=== PATIENT | female | born 1930 | race Caucasian/White ===

== ENCOUNTER 2016-05-13 14:16 | Emergency (ER) | payer OTHER ==
[~2016-05-13] VITALS: Ht 152.4 cm; Wt 68.0 kg
[~2016-05-13 14:16] MED LIST: CLTP PO; FLUO20CA35 PO; LEVO137T14 PO; LPR25 PO; MCRK20 PO; MTR500 PO; MULT-190 PO; ONDA4TAB7 SL; PRLSR20 PO; SIMV10TA2 PO
[2016-05-13 14:23] VITALS: Ht 152.4 cm; Wt 68.0 kg
[2016-05-13] MEDS ORDERED: ACETAMINOPHEN 325 MG TAB PO STA (16:36)
[2016-05-13] MEDS ORDERED: SODIUM CHLORIDE 0.9% 1000ML 1,000 ML IV STA (16:36)
--- NOTE | 2016-05-13 16:40 | EMERGENCY ROOM VISIT NOTE ---
History Report prepared by Eliezer: Octavia Chopra Under the Supervision of: Dr. Kiara Shultz M.D. First contact with patient: 16:28 Chief Complaint: FLU LIKE SX Stated Complaint: FLU,COLD,TENDERNESS IN CALVES History of Present Illness The patient is a 85 year old female who presents to the Emergency Room with complaints of constant flu like symptoms beginning 2 days ago. The patient states that she was seen at [facility] earlier today and during the examination the PA-C noticed tenderness in the patient's calves and wanted her to be evaluated in the ED for potential blood clots. The patient's daughter reports that the patient has associated cough, fever, chills, and calf tenderness. She states that she does not take any blood thinners. She notes that she has a history of blood clots but has not been complaining of calf pain prior to today's appointment. Source of History: patient Onset: 2 days ago Position: other (global) Quality: other (flu-like) Timing: constant Note: The patient's daughter reports that the patient has associated cough, fever, chills, and calf tenderness. Review of Systems See HPI for pertinent positives & negatives. A total of 10 systems reviewed and were otherwise negative. Past Medical & Surgical Medical Problems: (1) ARF (acute renal failure) (2) Bladder cancer (3) bladder removal (4) Breast CA (5) CAD (coronary artery disease) (6) CKD (chronic kidney disease), stage III (7) History of left heart catheterization (LHC) (8) HLD (hyperlipidemia) (9) Hyperkalemia (10) Hypothyroidism Surgical Problems: (1) H/O cystoscopy (2) H/O foot surgery (3) H/O mastectomy (4) H/O: hysterectomy (5) History of appendectomy (6) History of carpal tunnel surgery (7) History of esophagogastroduodenoscopy (EGD) (8) History of urostomy Family History Cancer Social History Smoking Status: Never Smoker Alcohol Use: none Marital Status: Housing Status: lives alone Occupation Status: retired Current/Historical Medications Scheduled Calcium/Vitamin D (Caltrate 600 Plus *), 1 TAB PO DAILY Fluoxetine (Prozac), 20 MG PO DAILY Levothyroxine (Levoxyl), 0.137 MG PO DAILY Metoprolol Tartrate (Lopressor), 25 MG PO BID Ocuvite Preservision (Ocuvite Preservision), 1 TAB PO DAILY Omeprazole (Prilosec), 20 MG PO BID Ondansetron (Zofran Odt), 4 MG SL Q6H Oseltamivir Phosphate (Tamiflu), 5 ML PO DAILY Potassium Chloride (Klor-Con M20), 20 MEQ PO DAILY Simvastatin (Zocor), 10 MG PO QPM Scheduled PRN Hydrocodone W/ Homatropine (Hycodan 5/1.5MG 5 Ml), 5 ML PO Q4H PRN for Cough Allergies Coded Allergies: Sulfa Antibiotics (Verified Allergy, Intermediate, "SULFA DRUGS": RASH, NAUSEA, 05/13/16) Lorazepam (Verified Allergy, Mild, DELIRIUM, 05/13/16) Ciprofloxacin (Verified Allergy, Unknown, allergy, 05/13/16) Scopolamine (Verified Adverse Reaction, Mild, DIZZINESS, 05/13/16) PT ABLE TO TAKE MECLIZINE JUST NOT PATCH Physical Exam Vital Signs Date Time Temp Pulse Resp B/P Pulse Ox O2 Delivery O2 Flow Rate FiO2 05/13/16 19:00 37.3 84 18 125/55 95 Room Air 05/13/16 18:00 86 18 124/69 94 Room Air 05/13/16 17:13 38.5 89 18 163/70 96 Room Air 05/13/16 17:13 96 Room Air 05/13/16 14:23 38.5 89 18 163/70 96 Room Air Physical Exam Vital signs reviewed. General: Elderly, ill-appearing, in no significant distress, noted to be febrile. HEENT: No scleral icterus, posterior oropharynx clear, PERRLA, neck supple. Atraumatic. Cardiovascular: Regular rate and rhythm, no extra sounds. Pulmonary: Clear to auscultation bilaterally, normal work of breathing. Abdomen: Soft, nontender, nondistended, positive bowel sounds. Musculoskeletal: Atraumatic, no peripheral edema. Neurologic: Patient awake alert and oriented x 3, full strength in all 4 extremities. Cranial nerves 2 through 12 grossly intact. Skin: Warm, dry, no rash Medical Decision & Procedures ER Provider Diagnostic Interpretation: X-ray results as stated below per my interpretation and radiologist interpretation. Other radiology results as stated below per my review and radiologist interpretation: CHEST ONE VIEW PORTABLE FINDINGS: The bones soft tissues and hemidiaphragms are normal. The cardiomediastinal silhouette is normal. The lungs are clear. The pulmonary vasculature is normal. IMPRESSION: Negative chest. Electronically signed by: Az Corley M.D. 05/13/2016 4:52 PM BILATERAL LOWER EXTREMITY VENOUS DOPPLER FINDINGS: There is normal compressibility, flow, and augmentation within the bilateral lower extremity deep venous systems. IMPRESSION: No DVT within the right or left lower extremity. Electronically signed by: Az Corley M.D. 05/13/2016 6:34 PM Laboratory Results 05/13/16 16:59 Red Blood Count 3.21, Mean Corpuscular Volume 88.5, Mean Corpuscular Hemoglobin 28.7, Mean Corpuscular Hemoglobin Concent 32.5, Mean Platelet Volume 12.8, Neutrophils (%) (Auto) 58.7, Lymphocytes (%) (Auto) 22.1, Monocytes (%) (Auto) 18.7, Eosinophils (%) (Auto) 0.1, Basophils (%) (Auto) 0.2, Neutrophils # (Auto ) 5.07, Lymphocytes # (Auto) 1.91, Monocytes # (Auto) 1.62, Eosinophils # (Auto ) 0.01, Basophils # (Auto) 0.02 05/13/16 16:59 Test 05/13/16 16:59 05/13/16 17:14 White Blood Count 8.65 K/uL (4.8-10.8) Red Blood Count 3.21 M/uL (4.2-5.4) Hemoglobin 9.2 g/dL (12.0-16.0) Hematocrit 28.4 % (37-47) Mean Corpuscular Volume 88.5 fL (80-100) Mean Corpuscular Hemoglobin 28.7 pg (25-34) Mean Corpuscular Hemoglobin Concent 32.5 g/dl (32-36) Platelet Count 97 K/uL (130-400) Mean Platelet Volume 12.8 fL (7.4-10.4) Neutrophils (%) (Auto) 58.7 % Lymphocytes (%) (Auto) 22.1 % Monocytes (%) (Auto) 18.7 % Eosinophils (%) (Auto) 0.1 % Basophils (%) (Auto) 0.2 % Neutrophils # (Auto) 5.07 K/uL (1.4-6.5) Lymphocytes # (Auto) 1.91 K/uL (1.2-3.4) Monocytes # (Auto) 1.62 K/uL (0.11-0.59) Eosinophils # (Auto) 0.01 K/uL (0-0.5) Basophils # (Auto) 0.02 K/uL (0-0.2) RDW Standard Deviation 58.4 fL (36.4-46.3) RDW Coefficient of Variation 17.8 % (11.5-14.5) Immature Granulocyte % (Auto) 0.2 % Immature Granulocyte # (Auto) 0.02 K/uL (0.00-0.02) Platelet Estimate DECREASED Giant Platelets 1+ Prothrombin Time 11.5 SECONDS (9.0-12.0) Prothromb Time International Ratio 1.1 (0.9-1.1) Activated Partial Thromboplast Time 26.8 SECONDS (21.0-31.0) Partial Thromboplastin Ratio 1.0 Anion Gap 10.0 mmol/L (3-11) Est Creatinine Clear Calc Drug Dose 22.5 ml/min Estimated GFR () 33.9 Estimated GFR (Non- 29.3 BUN/Creatinine Ratio 13.4 (10-20) Calcium Level 9.1 mg/dl (8.5-10.1) Total Bilirubin 0.3 mg/dl (0.2-1) Aspartate Amino Transf (AST/SGOT) 18 U/L (15-37) Alanine Aminotransferase (ALT/SGPT) 12 U/L (12-78) Alkaline Phosphatase 68 U/L (45-117) Total Creatine Kinase 30 U/L (26-192) Creatine Kinase MB < 0.5 ng/ml (0.5-3.6) Creatine Kinase MB Ratio (0-3.0) Total Protein 7.9 gm/dl (6.4-8.2) Albumin 3.2 gm/dl (3.4-5.0) Globulin 4.7 gm/dl (2.5-4.0) Albumin/Globulin Ratio 0.7 (0.9-2) Influenza Type A (RT-PCR) POS for Influ A (NEG) Influenza Type B (RT-PCR) Neg for Influ B (NEG) Bedside Lactic Acid Venous 0.74 mmol/L (0.90-1.70) Bedside Troponin I 0.010 ng/ml (0-0.045) Laboratory results per my review. Medications Administered Medications (Trade) Dose Ordered Sig/Isabela Route Start Time Stop Time Status Last Admin Dose Admin Acetaminophen 650 mg 650 mg NOW STAT PO 05/13/16 16:36 05/13/16 16:38 DC 05/13/16 17:22 650 MG Sodium Chloride (Nss 1000ml) 1,000 ml @ 125 mls/hr Q8H STAT IV 05/13/16 16:36 05/13/16 20:24 DC 05/13/16 17:21 125 MLS/HR Albuterol (Ventolin Hfa Inhaler) 2 puffs NOW ONCE INH 05/13/16 19:30 05/13/16 19:31 DC 05/13/16 19:30 2 PUFFS ECG Indication: other (calf tenderness) Rate (beats per minute): 93 Rhythm: normal sinus Findings: other (nonspecific ST change laterally, likely previous anterior infarct) ED Course 1632: Past medical records reviewed. The patient was evaluated in room C7. A complete history and physical examination was performed. 1636: Sodium Chloride 1000 ml @ 125 mls/hr IV, Tylenol Tab 650mg PO. 1924: Upon reevaluation, the patient appeared to have improvement of her symptoms. I discussed findings with the patient. She verbalized agreement of the treatment plan. The patient was discharged home. Medical Decision Fever: Influenza, other viral illness, pneumonia, urinary tract infection, metabolic abnormality, medication effect, cellulitis, meningitis, intra-abdominal source. This patient was evaluated and appeared to be in no significant distress. Physical examination reveals some upper airway congestion, cough and fever. The patient's influenza swab is positive. Chest x-ray is clear. Patient was given oral Tylenol with improvement in her symptoms. She was hydrated normal saline solution. Patient was given an albuterol inhaler and Tamiflu. At this point the patient is stable for discharge. She'll follow-up with her physician for reevaluation this week and return to the ER for worsening of symptoms or any medical concerns. Impression Primary Impression: Influenza A Scribe Attestation The scribe's documentation has been prepared under my direction and personally reviewed by me in its entirety. I confirm that the note above accurately reflects all work, treatment, procedures, and medical decision making performed by me. Departure Information Dispostion Home / Self-Care Prescriptions Hydrocodone W/ Homatropine (HYCODAN 5/1.5MG 5 ML) 1 Syp Syp 5 ML PO Q4H Y for Cough, #100 ML Prov: Kiara Shultz M.D. 05/13/16 Oseltamivir Phosphate (Tamiflu) 6 Mg/Ml Susp 5 ML PO DAILY for 5 Days, #25 ML Prov: Kiara Shultz M.D. 05/13/16 Referrals MIKE RUBI M.D. (PCP) Forms HOME CARE DOCUMENTATION FORM, IMPORTANT VISIT INFORMATION Patient Instructions A Signature Page, My [facility] Additional Instructions Diagnosis: Influenza A Tamiflu 30 mg ONCE daily for 5 days. Albuterol 2 puffs every 4 hours as needed for cough/wheeze. Hycodan syrup 5 mL every 4 hours as needed for cough. Do not drive after taking this medication. Tylenol 650 mg every 6 hours as needed for pain/fever. Drink plenty of fluids. Follow up with your doctor in 24-48 hours for reevaluation. Return to emergency for worsening of symptoms or any medical concerns.
--- NOTE | 2016-05-13 16:54 | DIAGNOSTIC IMAGING REPORT ---
CHEST ONE VIEW PORTABLE CLINICAL HISTORY: C07 - cough dyspnea COMPARISON STUDY: 04/25/2016 FINDINGS: The bones soft tissues and hemidiaphragms are normal. The cardiomediastinal silhouette is normal. The lungs are clear. The pulmonary vasculature is normal. IMPRESSION: Negative chest. Electronically signed by: Az Corley M.D. 05/13/2016 4:52 PM
[2016-05-13 17:13] VITALS: O2SAT 96
[2016-05-13 17:18] LABS: MEAN CORPUSCULAR HGB CONC 32.5 g/dl (32-36)
[2016-05-13 17:27] LABS: INR 1.1 (0.9-1.1); PROTHROMBIN TIME (PATIENT) 11.5 SECONDS (9.0-12.0)
[2016-05-13 17:35] LABS: ALT/SGPT 12 U/L (12-78); BLOOD UREA NITROGEN 22 mg/dl (7-18); BUN/CREATININE RATIO 13.4 (10-20); CALCIUM 9.1 mg/dl (8.5-10.1); CARBON DIOXIDE 25 mmol/L (21-32); CHLORIDE 100 mmol/L (98-107); GLUCOSE 109 mg/dl (70-99); POTASSIUM 4.3 mmol/L (3.5-5.1); SODIUM 135 mmol/L (136-145)
[2016-05-13 17:37] LABS: HEMATOCRIT 28.4 % (37-47); MEAN CELL VOLUME 88.5 fL (80-100); MEAN CORPUSCULAR HEMOGLOBIN 28.7 pg (25-34); MEAN PLATELET VOLUME 12.8 fL (7.4-10.4); PLATELET COUNT 97 K/uL (130-400); RED BLOOD COUNT 3.21 M/uL (4.2-5.4); WHITE BLOOD COUNT 8.65 K/uL (4.8-10.8)
[2016-05-13 17:38] LABS: BASO % 0.2 %; BASO ABS # 0.02 K/uL (0-0.2); COMPLETE YES; EOS % 0.1 %; GIANT PLATELETS 1+; IG% 0.2 %; LYMPH % 22.1 %; LYMPH ABS # 1.91 K/uL (1.2-3.4); MONO % 18.7 %; NEUT % 58.7 %; PLT ESTIMATE DECREASED
[2016-05-13 17:39] LABS: ALB/GLOB RATIO 0.7 (0.9-2); ALKALINE PHOSPHATASE 68 U/L (45-117); AST/SGOT 18 U/L (15-37)
--- NOTE | 2016-05-13 18:36 | DIAGNOSTIC IMAGING REPORT ---
BILATERAL LOWER EXTREMITY VENOUS DOPPLER HISTORY: Pain. Edema. DVT, tender calves COMPARISON STUDY: None. FINDINGS: There is normal compressibility, flow, and augmentation within the bilateral lower extremity deep venous systems. IMPRESSION: No DVT within the right or left lower extremity. Electronically signed by: Az Corley M.D. 05/13/2016 6:34 PM
[2016-05-13 18:56] LABS: INFLUENZA B PCR Neg for Influ B (NEG)
[2016-05-13 18:59] LABS: INFLUENZA A PCR POS for Influ A (NEG)
[2016-05-13 19:00] VITALS: BP 125/55; PULSE 84; TEMP 37.3; O2SAT 95
[2016-05-13] MEDS ORDERED: TMFS PO (19:19)
[2016-05-13] MEDS ORDERED: HYDR5SYP11 PO (19:20)
[2016-05-13] MEDS ORDERED: ALBUTEROL HFA 8 GM INHALER INH ONE ×2 (19:29→19:30)
[2016-05-28] MEDS ORDERED: SENN8.6T96 PO (11:39)
[2016-05-28] MEDS ORDERED: FERR1TAB62 PO (11:39)
[2016-05-31] MEDS ORDERED: AZIT500T PO ×2 (13:36→14:41)
== END 2016-05-13 19:28 | disposition home or self-care (01) ==
LOC: C.EDB 14:17 → C.EDC 19:28
DX: J11.1 Influenza due to unidentified influenza virus with other respiratory manifestations (principal); M79.662 Pain in left lower leg; M79.661 Pain in right lower leg; N18.3 Chronic kidney disease, stage 3 (moderate); I25.10 Atherosclerotic heart disease of native coronary artery without angina pectoris; E78.5 Hyperlipidemia, unspecified; E03.9 Hypothyroidism, unspecified; Z79.899 Other long term (current) drug therapy

== ENCOUNTER 2016-05-28 11:03 | Inpatient (IN) | payer OTHER ==
[~2016-05-28] VITALS: Ht 152.4 cm; Wt 65.0 kg
[~2016-05-28 11:03] MED LIST changes: -MTR500 PO; +TMFS PO
[2016-05-28] MEDS ORDERED: METR-163 PO (11:39)
[2016-05-28] MEDS ORDERED: FERR325T PO (11:39)
[2016-05-28] MEDS ORDERED: MULT-411 PO (11:39)
[2016-05-28] MEDS ORDERED: SYN137 PO (11:39)
[2016-05-28] MEDS ORDERED: DOXY100C76 PO (11:39)
[2016-05-28] MEDS ORDERED: MAGN400T6 PO (11:39)
[2016-05-28] MEDS ORDERED: CALC600T9 PO (11:39)
[2016-05-28] MEDS ORDERED: SENN8.6T11 PO (11:39)
[2016-05-28] MEDS ORDERED: IPRASOL4 INH (11:39)
[2016-05-28] MEDS ORDERED: ONDANSETRON INJ 2 MG/ML 2 ML VIAL IV STA (11:50)
[2016-05-28] MEDS ORDERED: SODIUM CHLORIDE 0.9% 250ML 250 ML IV STA (11:50)
[2016-05-28 12:12] LABS: HEMATOCRIT 27.3 % (37-47); MEAN CELL VOLUME 83.5 fL (80-100); MEAN CORPUSCULAR HEMOGLOBIN 28.1 pg (25-34); MEAN CORPUSCULAR HGB CONC 33.7 g/dl (32-36); PLATELET COUNT 145 K/uL (130-400); RED BLOOD COUNT 3.27 M/uL (4.2-5.4); WHITE BLOOD COUNT 12.29 K/uL (4.8-10.8)
[2016-05-28 12:27] LABS: INR 1.3 (0.9-1.1); PARTIAL THROMBOPLASTIN RATIO 1.2
[2016-05-28 12:32] LABS: ALT/SGPT 7 U/L (12-78); BLOOD UREA NITROGEN 28 mg/dl (7-18); BUN/CREATININE RATIO 12.9 (10-20); CALCIUM 9.1 mg/dl (8.5-10.1); CARBON DIOXIDE 19 mmol/L (21-32); CHLORIDE 98 mmol/L (98-107); GLUCOSE 114 mg/dl (70-99); POTASSIUM 3.7 mmol/L (3.5-5.1); SODIUM 133 mmol/L (136-145)
[2016-05-28 12:43] LABS: ALKALINE PHOSPHATASE 67 U/L (45-117); AST/SGOT 9 U/L (15-37)
--- NOTE | 2016-05-28 13:00 | DIAGNOSTIC IMAGING REPORT ---
CHEST 2 VIEWS ROUTINE CLINICAL HISTORY: Chills, weakness and vomiting. Evaluate for pneumonia. COMPARISON STUDY: Chest radiograph May 13, 2016. FINDINGS: Note is made of right axillary surgical clips. No pneumothorax or pleural effusion is present. No evidence for pulmonary edema. Right lung is clear. Cardiac size is normal. Mediastinal contours are normal. The patient is status post right mastectomy. There is hazy left lower lung opacity. IMPRESSION: Hazy left lower lung opacity. This may reflect an area of pneumonia although overlying soft tissue artifact could appear similar. Radiographic follow up is recommended. Electronically signed by: Jarek Arteaga M.D. 05/28/2016 12:58 PM Dictated Date/Time: 05/28/2016 12:56 PM
[2016-05-28 13:26] LABS: ANISOCYTOSIS PRESENT; BASO % 0.1 %; BASO ABS # 0.01 K/uL (0-0.2); COMPLETE YES; IG% 0.8 %; LYMPH % 13.3 %; LYMPH ABS # 1.63 K/uL (1.2-3.4); MONO % 14.6 %; NEUT % 71.2 %
[2016-05-28] MEDS ORDERED: ACETAMINOPHEN 325 MG TAB PO PRN (14:30)
[2016-05-28] MEDS ORDERED: ONDANSETRON INJ 2 MG/ML 2 ML VIAL IV PRN (14:30)
[2016-05-28 15:46] VITALS: BP 125/67; PULSE 89; TEMP 36.6; O2SAT 93
[2016-05-28] MEDS ORDERED: ALBUT/IPRATROP 3MG/0.5MG NEB 3 ML VIAL INH SCH (16:00)
[2016-05-28] MEDS: ALBUT/IPRATROP 3MG/0.5MG NEB 3 ML VIAL INH SCH ×2 (16:05→19:45)
[2016-05-28 16:06] VITALS: PULSE 95; O2SAT 95
--- NOTE | 2016-05-28 16:20 | History and Physical ---
History & Physical Date & Time of Service: May 28, 2016 at 14:56 Chief Complaint: Chills, Weakness Primary Care Physician: Consuelo Mike M.D. History of Present Illness Source: patient This is an 85 y/o female with PMHx of bladder CA with urostomy, CKD stage 3, CAD , Hypothyroidism, Dyslipidemia and other problems as outlined below who presents to the ED from [facility] c/o persistent cough for a few weeks. Pt reports that she has had upper respiratory sxs for a few weeks. She was diagnosed with influenza A at the beginning of May and prescribed Tamiflu. Daughter states patient never ended up taking the Tamiflu because the pharmacy did not carry it. The cough persisted and patient was seen by her PCP Dr. Govea. She was diagnosed with bronchitis and given course of doxycycline and inhalers. Pt states that she has been taking her medicine however she continues to decline. This past weekend, patient had chills, continued productive cough and some nausea. Per daughter patient has not had an appetite for a few weeks now. Pt denies fever, diaphoresis, chest pain, SOB, wheezing, abd pain, vomiting, constipation, diarrhea, hematochezia, melena, bladder issues, LE edema ,calf pain, lightheadedness/dizziness. In the ED, vitals are stable. Pt is afebrile with leukocytosis >12k. HgB 9.2. Na+ 133. creat 2.2. TSH 8.57. CXR + LLL opacity. Pt will be admitted for further evaluation and treatment. Past Medical/Surgical History Medical Problems: (1) Bladder cancer Status: Chronic (2) bladder removal Status: Chronic (3) Breast CA Status: Chronic (4) CAD (coronary artery disease) Status: Chronic (5) CKD (chronic kidney disease), stage III Status: Chronic (6) History of left heart catheterization (LHC) Status: Chronic (7) HLD (hyperlipidemia) Status: Chronic (8) Hypothyroidism Status: Chronic Surgical Problems: (1) H/O cystoscopy Status: Chronic (2) H/O foot surgery Status: Chronic (3) H/O mastectomy Status: Chronic (4) H/O: hysterectomy Status: Chronic (5) History of appendectomy Status: Chronic (6) History of carpal tunnel surgery Status: Chronic (7) History of esophagogastroduodenoscopy (EGD) Status: Chronic (8) History of urostomy Status: Chronic Family History Cancer Social History Smoking Status: Former Smoker (10 pack year history; quit 1979) Alcohol Use: occasionally Drug Use: none Marital Status: Housing status: senior living ([facility]) Occupational Status: retired Immunizations History of Influenza Vaccine: Yes History of Tetanus Vaccine?: Yes History of Pneumococcal: Yes History of Hepatitis B Vaccine: Yes Multi-Drug Resistant Organisms History of MDRO: Yes Type of MDRO: MRSA Allergies Coded Allergies: Sulfa Antibiotics (Verified Allergy, Intermediate, "SULFA DRUGS": RASH, NAUSEA, 05/28/16) Lorazepam (Verified Allergy, Mild, DELIRIUM, 05/28/16) Ciprofloxacin (Verified Allergy, Unknown, allergy, 05/28/16) Scopolamine (Verified Adverse Reaction, Mild, DIZZINESS, 05/28/16) PT ABLE TO TAKE MECLIZINE JUST NOT PATCH Home Medications Scheduled Calcium Carbonate-Vitamin D (Calcium + D), 1 TAB PO DAILY Doxycycline Monohydrate (Monodox), 100 MG PO BID Ferrous Sulfate (Ferrous Sulfate), 325 MG PO DAILY Fluoxetine (Prozac), 20 MG PO DAILY Ipratropium-Albuterol (Duoneb), 1 TREATMENT INH Q4H Levothyroxine Sodium (Levothyroxine Sodium), 137 MCG PO DAILY Magnesium Oxide (Mag-Ox), 400 MG PO BID Metoprolol Tartrate (Lopressor), 25 MG PO BID Metronidazole (Flagyl), 500 MG PO TID Multiple Vitamin (Daily Flaco), 1 TAB PO DAILY Ocuvite Preservision (Ocuvite Preservision), 1 TAB PO DAILY Omeprazole (Prilosec), 20 MG PO BID Sennosides-Docusate Sodium (Doc-Q-Lax), 1 TAB PO DAILY Simvastatin (Zocor), 10 MG PO QPM Review of Systems Constitutional: + chills, + weakness, No fever, No sweats Eyes: No worsening of vision ENT: + nasal symptoms, No hearing loss Respiratory: + cough, + sputum, No shortness of breath, No wheezing Cardiovascular: No chest pain, No claudication, No edema Abdomen: + nausea, No GI bleeding, No constipation, No diarrhea, No pain, No vomiting Musculoskeletal: No calf pain, No swelling Genitourinary - Female: No dysuria Neurologic: + weakness Psychiatric: No depression symptoms Endocrine: + fatigue Hematologic / Lymphatic: No abnormal bleeding/bruising Integumentary: No new/changing skin lesions Physical Exam Vital Signs Date Time Temp Pulse Resp B/P Pulse Ox O2 Delivery O2 Flow Rate FiO2 05/28/16 13:50 91 05/28/16 13:21 92 18 111/61 94 Room Air 05/28/16 12:23 86 18 140/58 98 Room Air 05/28/16 11:16 36.8 91 17 134/59 98 Room Air General Appearance: WD/WN, no apparent distress, + pertinent finding (Pt is a pleasant 85 y/o with daughter at bedside) Head: normocephalic, atraumatic Eyes: normal inspection ENT: hearing grossly normal Neck: supple Respiratory/Chest: chest non-tender, no respiratory distress, + crackles (left base), + pertinent finding (no wheezing noted) Cardiovascular: regular rate, rhythm, no edema, no murmur Abdomen/GI: normal bowel sounds, non tender, soft Back: normal inspection Extremities/Musculoskelatal: normal inspection, no calf tenderness, no pedal edema Neurologic/Psych: alert, normal mood/affect, oriented x 3 Skin: normal color, warm/dry Diagnostics Laboratory Results Results Past 24 Hours Test 05/28/16 12:04 Range/Units White Blood Count 12.29 4.8-10.8 K/uL Red Blood Count 3.27 4.2-5.4 M/uL Hemoglobin 9.2 12.0-16.0 g/dL Hematocrit 27.3 37-47 % Mean Corpuscular Volume 83.5 80-100 fL Mean Corpuscular Hemoglobin 28.1 25-34 pg Mean Corpuscular Hemoglobin Concent 33.7 32-36 g/dl Platelet Count 145 130-400 K/uL Mean Platelet Volume 11.0 7.4-10.4 fL Neutrophils (%) (Auto) 71.2 % Lymphocytes (%) (Auto) 13.3 % Monocytes (%) (Auto) 14.6 % Eosinophils (%) (Auto) 0.0 % Basophils (%) (Auto) 0.1 % Neutrophils # (Auto) 8.75 1.4-6.5 K/uL Lymphocytes # (Auto) 1.63 1.2-3.4 K/uL Monocytes # (Auto) 1.80 0.11-0.59 K/uL Eosinophils # (Auto) 0.00 0-0.5 K/uL Basophils # (Auto) 0.01 0-0.2 K/uL RDW Standard Deviation 52.9 36.4-46.3 fL RDW Coefficient of Variation 17.3 11.5-14.5 % Immature Granulocyte % (Auto) 0.8 % Immature Granulocyte # (Auto) 0.10 0.00-0.02 K/uL Anisocytosis PRESENT Prothrombin Time 14.0 9.0-12.0 SECONDS Prothromb Time International Ratio 1.3 0.9-1.1 Activated Partial Thromboplast Time 32.2 21.0-31.0 SECONDS Partial Thromboplastin Ratio 1.2 Sodium Level 133 136-145 mmol/L Potassium Level 3.7 3.5-5.1 mmol/L Chloride Level 98 98-107 mmol/L Carbon Dioxide Level 19 21-32 mmol/L Anion Gap 16.0 3-11 mmol/L Blood Urea Nitrogen 28 7-18 mg/dl Creatinine 2.20 0.60-1.20 mg/dl Est Creatinine Clear Calc Drug Dose 16.0 ml/min Estimated GFR () 23.1 Estimated GFR (Non- 19.9 BUN/Creatinine Ratio 12.9 10-20 Random Glucose 114 70-99 mg/dl Calcium Level 9.1 8.5-10.1 mg/dl Total Bilirubin 0.3 0.2-1 mg/dl Direct Bilirubin 0.1 0-0.2 mg/dl Aspartate Amino Transf (AST/SGOT) 9 15-37 U/L Alanine Aminotransferase (ALT/SGPT) 7 12-78 U/L Alkaline Phosphatase 67 45-117 U/L Total Creatine Kinase 10 26-192 U/L Creatine Kinase MB 0.8 0.5-3.6 ng/ml Creatine Kinase MB Ratio 8.0 0-3.0 Troponin I < 0.015 0-0.045 ng/ml Total Protein 7.5 6.4-8.2 gm/dl Albumin 2.8 3.4-5.0 gm/dl Lipase 131 73-393 U/L Thyroid Stimulating Hormone (TSH) 8.570 0.300-4.500 uIu/ml Microbiology Results 05/28/16 Blood Culture, Ordered Pending 05/28/16 Blood Culture, Ordered Pending Diagnostic Radiology CXR IMPRESSION: Hazy left lower lung opacity. This may reflect an area of pneumonia although overlying soft tissue artifact could appear similar. Radiographic follow up is recommended. EKG EKG: sinus rhythm at 88 bpm with PVCs and possible L atrial enlargement; PVCs are new finding when compared to EKG from 05/13/16 Impression Assessment and Plan LEFT LOWER LOBE PNEUMONIA pt presents from [facility] with chills, generalized weakness and productive cough; failed course of doxy -admit to med/surg -pt is afebrile with leukocytosis >12k -CXR + LLL opacity -blood and sputum cx-pending -start IVF and IV Zithromax and Rocephin -duonebs PRN -pt does not appear septic -monitor CKD STAGE 3 -creatinine is around baseline at 2.2 (bl=2) -gentle IVF -monitor with daily prp and avoid nephrotoxic agents when able CHRONIC ANEMIA -HgB stable at 9.2 -pt denies active bleed -monitor daily HYPOTHYROIDISM -TSH >8 -cont levothyroxine -hold off on any medication change while acutely ill; recheck TSH in 3-4 weeks CORONARY ARTERY DISEASE -EKG no acute ischemia -continue BB and statin -no acute coronary sxs DYSLIPIDEMIA -cont statin DEPRESSION -more withdrawn recently due to illness -cont Prozac 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 H/O BREAST CA -s/p R mastectomy DVT PROPHYLAXIS -subq heparin CODE STATUS -DNR status per discussion with patient upon admission DISPO -Discharge and PT/OT evals placed Patient seen in collaboration with Dr. Villagomez. Please see his addendum for further details. Thanks! Attending Note: Patient is seen and examined along with Joseph PAREDES Patient is an 85 yr old female with PMH of bladder CA with urostomy, CKD III, CAD, Hypothyroidism, Dyslipidemia who was recently diagnosed to have Influenza A in May presents with cough with clear expectoration and generalized weakness. She did not complete the Tamiflu as prescribed by her PCP. Also complained of nausea, chills and decreased appetite. Denies any fever, chest pain, SOB. Physical Exam: Vitals signs as noted above General:Moderately built and nourished, No apparent distress HEENT: NC/AT, EOMI, PERRLA CVS:S1, S2, + systolic murmur Resp: Decreased breath sounds at bases, Creps heard at bases Abd: soft, non tender, BS present Neuro: No focal deficits Ext:No cyanosis, clubbing edema Assessment and plan: Left Lower Lobe Community acquired pneumonia: Start her on IV antibiotics: Ceftriaxone Azithro Get blood/sputum cultures Duonebs, Oxygen PRN Recent positive for Influenza A Gentle IV fluids Anemia of chronic disease: Hb: 9.2 Stable Please review assessment and plan by Amanda Valente for rest of the conditions. VTE Prophylaxis VTE Risk Assessment Done? Y/N: Yes Risk Level: Moderate
[2016-05-28] MEDS: SODIUM CHLORIDE 0.9% 1000ML 1,000 ML IV SCH (16:57)
[2016-05-28] MEDS: CEFTRIAXONE SOD INJ 1 GM in DEXTROSE 5% ADD-VANTAGE 50ML 50 ML IV SCH (16:57)
--- NOTE | 2016-05-28 17:33 | EMERGENCY ROOM VISIT NOTE ---
History Report prepared by Eliezer: Audrey Read Under the Supervision of: Dr. Rock Mascorro M.D. First contact with patient: 11:37 Chief Complaint: WEAKNESS Stated Complaint: CHILLS, WEAKNESS Nursing Triage Summary: Symptoms over weekend- nausea, chills, weakness, fatigue. Was to have appt with Dr. Sawyer tomorrow, he told her to come to ED today. From [facility]. History of Present Illness The patient is an 85 year old female who presents to the Emergency Room with complaints of increased generalized weakness over the past 3 days. Per daughter , the patient was recently seen in the ED on the of this month as she was having a cough and flu like symptoms. The patient was diagnosed with influenza A and was discharged with Tamiflu, which did help to improve her symptoms, other than a remaining cough. Although her flu like symptoms had improved ( other than the cough), daughter states that over the past 3 days, the patient has constantly felt nauseous, making it difficult for her to eat and drink normally. She has dry heaved several times, but patient denies bringing up any emesis. Per daughter, the patient has also felt chilled, but she denies having fevers. She also denies headache, lightheadedness, dizziness, chest pain, cough , shortness of breath, abdominal pain, diarrhea, dark/tarry stools, or urinary symptoms. Daughter states that she was concerned because, although the patient has been on antibiotics for possible pneumonia over the past several days, her cough has persisted, and she has become progressively weak within the last 3 days. Patient is scheduled to have an appointment with Dr. Sawyer tomorrow, but after her daughter called and explained her symptoms to him this morning, he referred her to the ED for further evaluation and possible lab work. Source of History: patient, family Onset: over the past 3 days Position: other (generalized) Quality: other (weakness) Timing: worsening Associated Symptoms: + chills, + cough, + nausea, + vomiting (dry heaving, no emesis), + weakness, No SOB, No abdominal pain, No chest pain, No diarrhea, No fevers, No urinary symptoms Review of Systems See HPI for pertinent positives & negatives. A total of 10 systems reviewed and were otherwise negative. Past Medical & Surgical Medical Problems: (1) ARF (acute renal failure) (2) Bladder cancer (3) bladder removal (4) Breast CA (5) CAD (coronary artery disease) (6) CKD (chronic kidney disease), stage III (7) History of left heart catheterization (LHC) (8) HLD (hyperlipidemia) (9) Hypothyroidism (10) Pneumonia Surgical Problems: (1) H/O cystoscopy (2) H/O foot surgery (3) H/O mastectomy (4) H/O: hysterectomy (5) History of appendectomy (6) History of carpal tunnel surgery (7) History of esophagogastroduodenoscopy (EGD) (8) History of urostomy Family History Cancer Social History Smoking Status: Former Smoker Alcohol Use: none Marital Status: Housing Status: lives alone Occupation Status: retired Current/Historical Medications Scheduled Calcium Carbonate-Vitamin D (Calcium + D), 1 TAB PO DAILY Doxycycline Monohydrate (Monodox), 100 MG PO BID Ferrous Sulfate (Ferrous Sulfate), 325 MG PO DAILY Fluoxetine (Prozac), 20 MG PO DAILY Ipratropium-Albuterol (Duoneb), 1 TREATMENT INH Q4H Levothyroxine Sodium (Levothyroxine Sodium), 137 MCG PO DAILY Magnesium Oxide (Mag-Ox), 400 MG PO BID Metoprolol Tartrate (Lopressor), 25 MG PO BID Metronidazole (Flagyl), 500 MG PO TID Multiple Vitamin (Daily Flaco), 1 TAB PO DAILY Ocuvite Preservision (Ocuvite Preservision), 1 TAB PO DAILY Omeprazole (Prilosec), 20 MG PO BID Sennosides-Docusate Sodium (Doc-Q-Lax), 1 TAB PO DAILY Simvastatin (Zocor), 10 MG PO QPM Allergies Coded Allergies: Sulfa Antibiotics (Verified Allergy, Intermediate, "SULFA DRUGS": RASH, NAUSEA, 05/28/16) Lorazepam (Verified Allergy, Mild, DELIRIUM, 05/28/16) Ciprofloxacin (Verified Allergy, Unknown, allergy, 05/28/16) Scopolamine (Verified Adverse Reaction, Mild, DIZZINESS, 05/28/16) PT ABLE TO TAKE MECLIZINE JUST NOT PATCH Physical Exam Vital Signs Date Time Temp Pulse Resp B/P Pulse Ox O2 Delivery O2 Flow Rate FiO2 05/28/16 13:50 91 05/28/16 13:21 92 18 111/61 94 Room Air 05/28/16 12:23 86 18 140/58 98 Room Air 05/28/16 11:16 36.8 91 17 134/59 98 Room Air Physical Exam Constitutional: Vital signs reviewed. Eyes: Pupils are equal round reactive to light. Conjunctiva are noninjected. ENT: Pharynx is clear without erythema or exudate. Mucous membranes are moist. Neck supple without meningeal signs. Respiratory: Bibasilar crackles, greater on the left side. Breath sounds are equal bilaterally. Cardiovascular: Regular rate and rhythm. No rubs or gallops. GI: Soft, nondistended and nontender. Bowel sounds are present. Musculoskeletal: No peripheral edema. No lower extremity tenderness. Integumentary: No cyanosis. Neurological: The patient is awake and alert. No focal deficits. Psychiatric: Normal affect. Medical Decision & Procedures ER Provider Diagnostic Interpretation: X-ray results as stated below per interpretation by me and the radiologist: CHEST 2 VIEWS ROUTINE CLINICAL HISTORY: Chills, weakness and vomiting. Evaluate for pneumonia. COMPARISON STUDY: Chest radiograph May 13, 2016. FINDINGS: Note is made of right axillary surgical clips. No pneumothorax or pleural effusion is present. No evidence for pulmonary edema. Right lung is clear. Cardiac size is normal. Mediastinal contours are normal. The patient is status post right mastectomy. There is hazy left lower lung opacity. IMPRESSION: Hazy left lower lung opacity. This may reflect an area of pneumonia although overlying soft tissue artifact could appear similar. Radiographic follow up is recommended. Electronically signed by: Jarek Arteaga M.D. 05/28/2016 12:58 PM Dictated Date/Time: 05/28/2016 12:56 PM Laboratory Results 05/28/16 12:04 Red Blood Count 3.27, Mean Corpuscular Volume 83.5, Mean Corpuscular Hemoglobin 28.1, Mean Corpuscular Hemoglobin Concent 33.7, Mean Platelet Volume 11.0, Neutrophils (%) (Auto) 71.2, Lymphocytes (%) (Auto) 13.3, Monocytes (%) (Auto) 14.6, Eosinophils (%) (Auto) 0.0, Basophils (%) (Auto) 0.1, Neutrophils # (Auto ) 8.75, Lymphocytes # (Auto) 1.63, Monocytes # (Auto) 1.80, Eosinophils # (Auto ) 0.00, Basophils # (Auto) 0.01 05/28/16 12:04 Test 05/28/16 12:04 White Blood Count 12.29 K/uL (4.8-10.8) Red Blood Count 3.27 M/uL (4.2-5.4) Hemoglobin 9.2 g/dL (12.0-16.0) Hematocrit 27.3 % (37-47) Mean Corpuscular Volume 83.5 fL (80-100) Mean Corpuscular Hemoglobin 28.1 pg (25-34) Mean Corpuscular Hemoglobin Concent 33.7 g/dl (32-36) Platelet Count 145 K/uL (130-400) Mean Platelet Volume 11.0 fL (7.4-10.4) Neutrophils (%) (Auto) 71.2 % Lymphocytes (%) (Auto) 13.3 % Monocytes (%) (Auto) 14.6 % Eosinophils (%) (Auto) 0.0 % Basophils (%) (Auto) 0.1 % Neutrophils # (Auto) 8.75 K/uL (1.4-6.5) Lymphocytes # (Auto) 1.63 K/uL (1.2-3.4) Monocytes # (Auto) 1.80 K/uL (0.11-0.59) Eosinophils # (Auto) 0.00 K/uL (0-0.5) Basophils # (Auto) 0.01 K/uL (0-0.2) RDW Standard Deviation 52.9 fL (36.4-46.3) RDW Coefficient of Variation 17.3 % (11.5-14.5) Immature Granulocyte % (Auto) 0.8 % Immature Granulocyte # (Auto) 0.10 K/uL (0.00-0.02) Anisocytosis PRESENT Prothrombin Time 14.0 SECONDS (9.0-12.0) Prothromb Time International Ratio 1.3 (0.9-1.1) Activated Partial Thromboplast Time 32.2 SECONDS (21.0-31.0) Partial Thromboplastin Ratio 1.2 Anion Gap 16.0 mmol/L (3-11) Est Creatinine Clear Calc Drug Dose 16.0 ml/min Estimated GFR () 23.1 Estimated GFR (Non- 19.9 BUN/Creatinine Ratio 12.9 (10-20) Calcium Level 9.1 mg/dl (8.5-10.1) Total Bilirubin 0.3 mg/dl (0.2-1) Direct Bilirubin 0.1 mg/dl (0-0.2) Aspartate Amino Transf (AST/SGOT) 9 U/L (15-37) Alanine Aminotransferase (ALT/SGPT) 7 U/L (12-78) Alkaline Phosphatase 67 U/L (45-117) Total Creatine Kinase 10 U/L (26-192) Creatine Kinase MB 0.8 ng/ml (0.5-3.6) Creatine Kinase MB Ratio 8.0 (0-3.0) Troponin I < 0.015 ng/ml (0-0.045) Total Protein 7.5 gm/dl (6.4-8.2) Albumin 2.8 gm/dl (3.4-5.0) Lipase 131 U/L (73-393) Thyroid Stimulating Hormone (TSH) 8.570 uIu/ml (0.300-4.500) Laboratory results as reviewed by me. Medications Administered Medications (Trade) Dose Ordered Sig/Isabela Route Start Time Stop Time Status Last Admin Dose Admin Ondansetron HCl 4 mg 4 mg NOW STAT IV 05/28/16 11:50 05/28/16 11:52 DC 05/28/16 12:22 4 MG Sodium Chloride (Nss 250ml) 250 ml @ 999 mls/hr Q16M STAT IV 05/28/16 11:50 05/28/16 12:05 DC 05/28/16 12:22 999 MLS/HR ECG Indication: weakness Rate (beats per minute): 88 Rhythm: sinus rhythm Findings: PVC, other (Non-specific ST/T wave changes.) ED Course 1139: The patient was evaluated in room B4. A complete history and physical exam was performed. 1150: NSS 250 ml @ 999 mls/hr IV and Zofran 4 mg IV were ordered. 1330: Upon reevaluation, the patient was feeling better after receiving the medications. I updated her and her daughter on the results of her radiology reports and lab tests. Patient's daughter explained that the patient has been on antibiotics for possible pneumonia for several days, but hasn't gotten any better. The hospitalist will be contacted for failed out patient treatment. 1335: After discussion with Amanda Ruiz PA-C, [facility]. She and her daughter verbalized their understanding and agreement with this treatment plan. Medical Decision This is an 85-year-old female who presents with generalized weakness. Differential diagnosis includes dehydration, metabolic derangement, renal failure, anemia, pneumonia. I did perform a limited focused review of portions of the patient's old chart on the electronic medical record. The patient was here on May for flu like symptoms and tenderness in her calf. She had a normal chest x-ray as well as a negative US of her lower extremity for DVT. She was also diagnosed with Influenza A and was subsequently discharged home with Tamiflu. The patient was also here on April 25 for acute renal failure and C. difficile colitis. I did evaluate the patient as noted above. The patient is presenting with nonspecific generalized weakness. She does have a persistent cough and was diagnosed with influenza recently but is currently on doxycycline. She has been nauseated as well and not eating very well. IV access was established. The patient was placed on a continuous environmental monitoring specialist. I did treat the patient with Zofran and normal saline IV. I did order and personally review the patient's 12-lead EKG and chest x-ray as described above. The patient does appear to have a left-sided infiltrate consistent with her physical examination findings. I did order and review the patient's blood work as noted in the electronic medical record. She is chronically anemic. Her creatinine is above her baseline. I did reassess the patient. She does state that she is feeling somewhat better. I did discuss the testicles with the patient and her daughter. I did recommend hospitalization for IV antibiotics given that she has a persistent infiltrate despite being on home antibiotics. She will also likely need continued IV fluids to improve her renal function. I did discuss the case with the hospitalist and casey saw operator. Consults Time Called: 1330 Consulting Physician: Amanda Ruiz PA-C - angelica Returned Call: [phone] Discussed the patient's case. She will [facility]. Impression Primary Impression: Pneumonia involving left lung Additional Impressions: Generalized weakness Creatinine elevation Chronic anemia Failure of outpatient treatment Scribe Attestation The scribe's documentation has been prepared under my direct and personally reviewed by me in its entirety. I confirm that the note above accurately reflects all work, treatment, procedures, and medical decision making performed by me. Departure Information Dispostion Being Evaluated By Hospitalist (Julia) Referrals MIKE RUBI M.D. (PCP) Problem Qualifiers
[2016-05-28 19:48] VITALS: PULSE 94; O2SAT 98
[2016-05-28] MEDS: AZITHROMYCIN IV 500 MG in DEXTROSE 5% 250ML 250 ML IV SCH (21:29)
[2016-05-28] MEDS: HEPARIN SOD 5000 UNIT/0.5 ML CARP SQ SCH (21:30)
[2016-05-28] MEDS: MAGNESIUM OXIDE 400 MG TAB PO SCH (21:31)
[2016-05-28] MEDS: SIMVASTATIN 10 MG TAB PO SCH (21:32)
[2016-05-28] MEDS: METOPROLOL TARTRATE 25 MG TAB PO SCH (21:32)
[2016-05-28] MEDS: PANTOprazole SOD 40 MG TAB PO SCH (21:32)
[2016-05-28 22:33] VITALS: BP 125/67; PULSE 89; TEMP 36.6; O2SAT 98; Ht 152.4 cm; Wt 65.0 kg
[2016-05-28 23:45] VITALS: BP 102/61; PULSE 77; TEMP 36.7; O2SAT 99
[2016-05-29] MEDS: SODIUM CHLORIDE 0.9% 1000ML 1,000 ML IV SCH ×2 (03:54→19:47)
[2016-05-29] MEDS: HEPARIN SOD 5000 UNIT/0.5 ML CARP SQ SCH ×3 (06:36→21:44)
[2016-05-29] MEDS: LEVOTHYROXINE 137 MCG TAB PO SCH (06:36)
[2016-05-29 07:15] VITALS: PULSE 89; O2SAT 95
[2016-05-29] MEDS: ALBUT/IPRATROP 3MG/0.5MG NEB 3 ML VIAL INH SCH ×4 (07:15→19:30)
--- NOTE | 2016-05-29 07:16 | Clinical Documentation Query ---
CLINICAL DOCUMENTATION QUERY Dr. FOURNIER, In your clinical opinion has this patient progressed to: ( ) Chronic kidney disease, stage 4 ( ) Other explanation of clinical findings (Please Explain) ( ) Unable to determine (Please Define) ( ) Need to Discuss ( ) Not Agree The medical record reflects the following clinical findings, treatment, and risk factors. Clinical Indicators: 85 yo female presenting with pneumonia. Documentation reflects pt with CKD stage 3 however review of GFR range over the past 6 is 14.9-29.3. Treatment: monitor PRP Risk Factors: age, CAD The stages of CKD according to the [employer] are as follows: Stage I: GFR >90 Stage II: GFR 60-89 Stage III: GFR 30-59 Stage IV: GFR 15-29 Stage V: GFR <15 Please clarify and document your clinical opinion in the progress notes and discharge summary. Terms such as "probable", "suspected", "likely", "questionable", "possible", or "still to be ruled out" are acceptable. IF IN AGREEMENT, YOU MUST DOCUMENT ABOVE DIAGNOSTIC STATEMENT IN DAILY PROGRESS NOTES AND DISCHARGE SUMMARY. This document is not part of the patient's record. Thank You, Elizabeth Abreu, SARTHAK [phone]
[2016-05-29 07:37] VITALS: BP 139/71; PULSE 82; TEMP 37.1; O2SAT 100
[2016-05-29] MEDS: METOPROLOL TARTRATE 25 MG TAB PO SCH ×2 (08:00→20:14)
[2016-05-29 08:30] LABS: HEMATOCRIT 24.1 % (37-47); MEAN CELL VOLUME 83.7 fL (80-100); MEAN CORPUSCULAR HEMOGLOBIN 27.8 pg (25-34); MEAN CORPUSCULAR HGB CONC 33.2 g/dl (32-36); MEAN PLATELET VOLUME 11.6 fL (7.4-10.4); PLATELET COUNT 135 K/uL (130-400); RED BLOOD COUNT 2.88 M/uL (4.2-5.4); WHITE BLOOD COUNT 10.27 K/uL (4.8-10.8)
[2016-05-29] MEDS: FERROUS SULFATE 325 MG TAB PO SCH (08:40)
[2016-05-29] MEDS: CALCIUM 600MG + VIT D 400 IU TAB PO SCH (08:40)
[2016-05-29] MEDS: PANTOprazole SOD 40 MG TAB PO SCH ×2 (08:41→20:14)
[2016-05-29] MEDS: MULTIVITAMIN TAB PO SCH (08:41)
[2016-05-29] MEDS: DOCUSATE SODIUM/SENNA 50/8.6MG TAB PO SCH (08:41)
[2016-05-29] MEDS: FLUOXETINE HCL 20 MG CAP PO SCH (08:41)
[2016-05-29] MEDS: MAGNESIUM OXIDE 400 MG TAB PO SCH ×2 (08:42→20:14)
[2016-05-29] MEDS: CEROVITE ADV FORMULA TAB PO SCH (08:42)
[2016-05-29 09:01] LABS: CALCIUM 8.4 mg/dl (8.5-10.1); CREATININE 2.1 mg/dl (0.60-1.20); POTASSIUM 3.7 mmol/L (3.5-5.1)
[2016-05-29 11:15] VITALS: PULSE 89; O2SAT 96
[2016-05-29 15:23] VITALS: BP 123/71; PULSE 96; TEMP 36.9; O2SAT 98
[2016-05-29 15:55] VITALS: PULSE 90; O2SAT 96
[2016-05-29] MEDS: CEFTRIAXONE SOD INJ 1 GM in DEXTROSE 5% ADD-VANTAGE 50ML 50 ML IV SCH (16:00)
--- NOTE | 2016-05-29 16:51 | Progress Note ---
Medicine Progress Note Date & Time of Visit: May 29, 2016 at 16:24. Subjective Pt was seen and examined Lying in bed with no distress Pt said that she feels better She said her cough and her breathing improved she denies any chest pain, palpitation, fever and dizziness Objective Last 8 Hrs Date Time Temp Pulse Resp B/P Pulse Ox O2 Delivery O2 Flow Rate FiO2 05/29/16 16:00 Room Air 05/29/16 15:55 90 16 96 Room Air 05/29/16 15:23 36.9 96 18 123/71 98 Room Air 05/29/16 11:15 89 16 96 Room Air Physical Exam: General- no acute distress Head- atraumatic Eyes- PERRL, EOMI ENT- oropharynx clear Neck- supple, no JVD Lungs-decrease BS at base Heart- s1/s2 present, +systolic murmur Abdomen- normal bowel sounds, soft, nontender, no masses or hepatosplenomegaly Extremities- no calf tenderness Neuro- alert, oriented, PERRL, EOMI Skin- warm & dry Laboratory Results: Last 24 Hours Test 05/29/16 08:16 White Blood Count 10.27 K/uL Red Blood Count 2.88 M/uL Hemoglobin 8.0 g/dL Hematocrit 24.1 % Mean Corpuscular Volume 83.7 fL Mean Corpuscular Hemoglobin 27.8 pg Mean Corpuscular Hemoglobin Concent 33.2 g/dl RDW Standard Deviation 52.3 fL RDW Coefficient of Variation 17.2 % Platelet Count 135 K/uL Mean Platelet Volume 11.6 fL Sodium Level 136 mmol/L Potassium Level 3.7 mmol/L Chloride Level 103 mmol/L Carbon Dioxide Level 19 mmol/L Anion Gap 14.0 mmol/L Blood Urea Nitrogen 25 mg/dl Creatinine 2.10 mg/dl Est Creatinine Clear Calc Drug Dose 16.8 ml/min Estimated GFR () 24.4 Estimated GFR (Non- 21.1 BUN/Creatinine Ratio 12.0 Random Glucose 97 mg/dl Calcium Level 8.4 mg/dl Date/Time Source Procedure Growth Status 05/28/16 16:45 Blood Blood Culture Pending Received 05/28/16 16:40 Blood Blood Culture Pending Received Assessment & Plan LEFT LOWER LOBE PNEUMONIA CXR on admission showed hazy left lower lung opacity Failed outpatient treatment with doxy Continue zithromax and rocephin for now -blood and sputum cx-pending -WBC was elevated on admission and trending down -Continue duonebs PRN will consider to change to po abx upon discharge CKD STAGE 3 -creatinine is around baseline at 2.2 (bl=2) -gentle IVF -monitor with daily prp and avoid nephrotoxic agents when able Stable CHRONIC ANEMIA -HgB stable at 8 -pt denies active bleed -monitor h/h and if h/h drops below 8, will transfuse prbc HYPOTHYROIDISM -TSH >8 Possible related to acute illness because last TSH was wnl on 04/26 -cont levothyroxine CORONARY ARTERY DISEASE -EKG no acute ischemia -continue BB and statin -no acute coronary sxs - Stable DYSLIPIDEMIA -cont statin DEPRESSION -more withdrawn recently due to illness -cont Prozac 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 H/O BREAST CA -s/p R mastectomy DVT PROPHYLAXIS -subq heparin CODE STATUS DNR Current Inpatient Medications: Current Inpatient Medications Medications (Trade) Dose Ordered Sig/Isabela Route Start Time Stop Time Status Last Admin Dose Admin Heparin Sodium (Porcine) (Heparin Sq 5000 Unit/0.5ml) 5,000 unit Q8 SQ 05/28/16 22:00 06/27/16 21:59 05/29/16 13:51 5,000 UNIT Acetaminophen (Tylenol Tab) 650 mg Q4H PRN PO 05/28/16 14:30 06/27/16 14:29 Ondansetron HCl 4 mg 4 mg Q6H PRN IV 05/28/16 14:30 06/27/16 14:29 Sodium Chloride (Nss 1000ml) 1,000 ml @ 80 mls/hr [id number] IV 05/28/16 14:45 06/27/16 14:44 05/29/16 03:54 80 MLS/HR Fluoxetine HCl (Prozac Cap) 20 mg DAILY PO 05/29/16 08:00 06/28/16 08:59 05/29/16 08:41 20 MG Levothyroxine Sodium (Synthroid Tab) 137 mcg DAILYBB PO 05/29/16 06:30 06/28/16 06:59 05/29/16 06:36 137 MCG Magnesium Oxide (Mag-Ox Tab) 400 mg BID PO 05/28/16 20:00 06/27/16 20:59 05/29/16 08:42 400 MG Metoprolol Tartrate (Lopressor Tab) 25 mg BID PO 05/28/16 20:00 06/27/16 20:59 05/28/16 21:32 25 MG Multivitamins (Multivitamin Tab) 1 tab DAILY PO 05/29/16 08:00 06/28/16 08:59 05/29/16 08:41 1 TAB Multivitamins/ Minerals (Multivitamin W/ Minerals Tab) 1 tab DAILY PO 05/29/16 08:00 06/28/16 08:59 05/29/16 08:42 1 TAB Senna/Docusate Sodium (Senokot S Tab) 1 tab DAILY PO 05/29/16 08:00 06/28/16 08:59 05/29/16 08:41 1 TAB Simvastatin (Zocor Tab) 10 mg QPM PO 05/28/16 21:00 06/27/16 20:59 05/28/16 21:32 10 MG Calcium/Vitamin D (Caltrate Plus Tab) 1 tab DAILY PO 05/29/16 08:00 06/28/16 08:59 05/29/16 08:40 1 TAB Ferrous Sulfate (Feosol Tab) 325 mg DAILY PO 05/29/16 08:00 06/28/16 08:59 05/29/16 08:40 325 MG Pantoprazole Sodium 40 mg 40 mg BID PO 05/28/16 20:00 06/27/16 20:59 05/29/16 08:41 40 MG Azithromycin 500 mg/Dextrose 255 ml @ 125 mls/hr DAILY@1700 IV 05/28/16 17:00 06/04/16 16:59 05/28/16 21:29 125 MLS/HR Ceftriaxone Sodium/Dextrose (Rocephin Inj/ Dextrose Add-[place] 50ML) 50 ml @ 100 mls/hr Q24H IV 05/28/16 16:00 06/04/16 15:59 05/28/16 16:57 100 MLS/HR Albuterol/ Ipratropium (Duoneb) 3 ml QIDR INH 05/28/16 16:00 06/27/16 15:59 05/29/16 15:55 3 ML
[2016-05-29] MEDS: AZITHROMYCIN IV 500 MG in DEXTROSE 5% 250ML 250 ML IV SCH (16:57)
[2016-05-29] MEDS: SIMVASTATIN 10 MG TAB PO SCH (20:14)
[2016-05-29 23:51] VITALS: BP 117/71; PULSE 79; TEMP 36.7; O2SAT 99
[2016-05-30] VITALS (11 sets, daily range): BP systolic 102–145; BP diastolic 62–80; PULSE 72–97; TEMP 36.6–37; O2SAT 95–98
[2016-05-30] MEDS: HEPARIN SOD 5000 UNIT/0.5 ML CARP SQ SCH ×3 (06:00→20:39)
[2016-05-30] MEDS: LEVOTHYROXINE 137 MCG TAB PO SCH (06:10)
[2016-05-30] MEDS: SODIUM CHLORIDE 0.9% 1000ML 1,000 ML IV SCH ×2 (06:10→17:11)
[2016-05-30 06:15] LABS: HEMATOCRIT 24.6 % (37-47); MEAN CELL VOLUME 85.4 fL (80-100); MEAN CORPUSCULAR HEMOGLOBIN 28.1 pg (25-34); MEAN CORPUSCULAR HGB CONC 32.9 g/dl (32-36); MEAN PLATELET VOLUME 11.5 fL (7.4-10.4); PLATELET COUNT 146 K/uL (130-400); RED BLOOD COUNT 2.88 M/uL (4.2-5.4); WHITE BLOOD COUNT 7.01 K/uL (4.8-10.8)
[2016-05-30 06:41] LABS: BUN/CREATININE RATIO 10.4 (10-20); CALCIUM 8.2 mg/dl (8.5-10.1); POTASSIUM 4.1 mmol/L (3.5-5.1)
[2016-05-30] MEDS: FLUOXETINE HCL 20 MG CAP PO SCH (07:35)
[2016-05-30] MEDS: MULTIVITAMIN TAB PO SCH (07:35)
[2016-05-30] MEDS: METOPROLOL TARTRATE 25 MG TAB PO SCH ×2 (07:35→20:39)
[2016-05-30] MEDS: CALCIUM 600MG + VIT D 400 IU TAB PO SCH (07:35)
[2016-05-30] MEDS: FERROUS SULFATE 325 MG TAB PO SCH (07:35)
[2016-05-30] MEDS: DOCUSATE SODIUM/SENNA 50/8.6MG TAB PO SCH (07:35)
[2016-05-30] MEDS: MAGNESIUM OXIDE 400 MG TAB PO SCH ×2 (07:35→20:40)
[2016-05-30] MEDS: PANTOprazole SOD 40 MG TAB PO SCH ×2 (07:35→20:40)
[2016-05-30] MEDS: CEROVITE ADV FORMULA TAB PO SCH (07:35)
[2016-05-30] MEDS: ALBUT/IPRATROP 3MG/0.5MG NEB 3 ML VIAL INH SCH ×4 (07:39→20:00)
[2016-05-30] MEDS: AZITHROMYCIN IV 500 MG in DEXTROSE 5% 250ML 250 ML IV SCH (17:03)
[2016-05-30] MEDS: CEFTRIAXONE SOD INJ 1 GM in DEXTROSE 5% ADD-VANTAGE 50ML 50 ML IV SCH (17:11)
--- NOTE | 2016-05-30 17:15 | Progress Note ---
Medicine Progress Note Date & Time of Visit: May 30, 2016 at 17:08. Subjective Pt was seen and examined Lying in bed comfortable with no distress Pt said that she feels better she said her breathing and her cough feels much better today denies any chest pain, palpitation, dizziness and sob Objective Last 8 Hrs Date Time Temp Pulse Resp B/P Pulse Ox O2 Delivery O2 Flow Rate FiO2 05/30/16 15:24 72 16 97 Room Air 05/30/16 15:24 37.0 91 18 140/78 97 05/30/16 13:25 36.8 87 20 102/65 05/30/16 12:55 36.8 88 20 103/66 05/30/16 12:25 36.8 97 20 145/62 05/30/16 12:10 36.8 89 20 116/70 05/30/16 11:50 36.8 90 20 133/76 05/30/16 10:53 75 16 98 Room Air Physical Exam: General- no acute distress Head- atraumatic Eyes- PERRL, EOMI ENT- oropharynx clear Neck- supple, no JVD Lungs-No wheezing Heart- s1/s2 present, +systolic murmur Abdomen- normal bowel sounds, soft, nontender, no masses or hepatosplenomegaly Extremities- no calf tenderness Neuro- alert, oriented, PERRL, EOMI Skin- warm & dry Laboratory Results: Last 24 Hours Test 05/30/16 05:57 White Blood Count 7.01 K/uL Red Blood Count 2.88 M/uL Hemoglobin 8.1 g/dL Hematocrit 24.6 % Mean Corpuscular Volume 85.4 fL Mean Corpuscular Hemoglobin 28.1 pg Mean Corpuscular Hemoglobin Concent 32.9 g/dl RDW Standard Deviation 55.0 fL RDW Coefficient of Variation 17.4 % Platelet Count 146 K/uL Mean Platelet Volume 11.5 fL Sodium Level 139 mmol/L Potassium Level 4.1 mmol/L Chloride Level 107 mmol/L Carbon Dioxide Level 21 mmol/L Anion Gap 11.0 mmol/L Blood Urea Nitrogen 21 mg/dl Creatinine 2.00 mg/dl Est Creatinine Clear Calc Drug Dose 17.6 ml/min Estimated GFR () 25.9 Estimated GFR (Non- 22.4 BUN/Creatinine Ratio 10.4 Random Glucose 91 mg/dl Calcium Level 8.2 mg/dl Assessment & Plan LEFT LOWER LOBE PNEUMONIA CXR on admission showed hazy left lower lung opacity Failed outpatient treatment with doxy Continue zithromax and rocephin for now -blood and sputum cx-pending -WBC was elevated on admission and trending down -Continue duonebs PRN Will change to po abx upon discharge tomorrow CKD STAGE 4 -creatinine baseline at 2.2 (bl=2) -Creatine today 2 -D/C IVF -monitor with daily prp and avoid nephrotoxic agents when able Stable CHRONIC ANEMIA -HgB stable at 8.1 -pt denies active bleed -will transfuse 1 unit prbc today - Continue monitor h/h HYPOTHYROIDISM -TSH >8 Possible related to acute illness because last TSH was wnl on 04/26 repeat TSH in a few weeks once medically stable -cont levothyroxine CORONARY ARTERY DISEASE -EKG no acute ischemia -continue BB and statin -no acute coronary sxs - Stable DYSLIPIDEMIA -cont statin DEPRESSION -more withdrawn recently due to illness -cont Prozac 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 H/O BREAST CA -s/p R mastectomy DVT PROPHYLAXIS -subq heparin CODE STATUS DNR Current Inpatient Medications: Current Inpatient Medications Medications (Trade) Dose Ordered Sig/Isabela Route Start Time Stop Time Status Last Admin Dose Admin Heparin Sodium (Porcine) (Heparin Sq 5000 Unit/0.5ml) 5,000 unit Q8 SQ 05/28/16 22:00 06/27/16 21:59 05/30/16 14:01 5,000 UNIT Acetaminophen (Tylenol Tab) 650 mg Q4H PRN PO 05/28/16 14:30 06/27/16 14:29 Ondansetron HCl 4 mg 4 mg Q6H PRN IV 05/28/16 14:30 06/27/16 14:29 05/29/16 16:57 4 MG Sodium Chloride (Nss 1000ml) 1,000 ml @ 80 mls/hr [id number] IV 05/28/16 14:45 06/27/16 14:44 05/30/16 06:10 80 MLS/HR Fluoxetine HCl (Prozac Cap) 20 mg DAILY PO 05/29/16 08:00 06/28/16 08:59 05/30/16 07:35 20 MG Levothyroxine Sodium (Synthroid Tab) 137 mcg DAILYBB PO 05/29/16 06:30 06/28/16 06:59 05/30/16 06:10 137 MCG Magnesium Oxide (Mag-Ox Tab) 400 mg BID PO 05/28/16 20:00 06/27/16 20:59 05/30/16 07:35 400 MG Metoprolol Tartrate (Lopressor Tab) 25 mg BID PO 05/28/16 20:00 06/27/16 20:59 05/30/16 07:35 25 MG Multivitamins (Multivitamin Tab) 1 tab DAILY PO 05/29/16 08:00 06/28/16 08:59 05/30/16 07:35 1 TAB Multivitamins/ Minerals (Multivitamin W/ Minerals Tab) 1 tab DAILY PO 05/29/16 08:00 06/28/16 08:59 05/30/16 07:35 1 TAB Senna/Docusate Sodium (Senokot S Tab) 1 tab DAILY PO 05/29/16 08:00 06/28/16 08:59 05/30/16 07:35 1 TAB Simvastatin (Zocor Tab) 10 mg QPM PO 05/28/16 21:00 06/27/16 20:59 05/29/16 20:14 10 MG Calcium/Vitamin D (Caltrate Plus Tab) 1 tab DAILY PO 05/29/16 08:00 06/28/16 08:59 05/30/16 07:35 1 TAB Ferrous Sulfate (Feosol Tab) 325 mg DAILY PO 05/29/16 08:00 06/28/16 08:59 05/30/16 07:35 325 MG Pantoprazole Sodium 40 mg 40 mg BID PO 05/28/16 20:00 06/27/16 20:59 05/30/16 07:35 40 MG Azithromycin 500 mg/Dextrose 255 ml @ 125 mls/hr DAILY@1700 IV 05/28/16 17:00 06/04/16 16:59 05/29/16 16:57 125 MLS/HR Ceftriaxone Sodium/Dextrose (Rocephin Inj/ Dextrose Add-[place] 50ML) 50 ml @ 100 mls/hr Q24H IV 05/28/16 16:00 06/04/16 15:59 05/29/16 16:00 100 MLS/HR Albuterol/ Ipratropium (Duoneb) 3 ml QIDR INH 05/28/16 16:00 06/27/16 15:59 05/30/16 15:23 3 ML
[2016-05-30] MEDS: SIMVASTATIN 10 MG TAB PO SCH (20:40)
[2016-05-31] MEDS ORDERED: AZITHROMYCIN 250 MG TAB PO SCH
[2016-05-31 00:33] VITALS: BP 110/67; PULSE 78; TEMP 36.9; O2SAT 97
[2016-05-31] MEDS: HEPARIN SOD 5000 UNIT/0.5 ML CARP SQ SCH ×2 (05:14→13:24)
[2016-05-31] MEDS: LEVOTHYROXINE 137 MCG TAB PO SCH (06:26)
[2016-05-31 06:31] LABS: HEMATOCRIT 27.5 % (37-47); MEAN CELL VOLUME 83.3 fL (80-100); MEAN CORPUSCULAR HEMOGLOBIN 27.9 pg (25-34); MEAN CORPUSCULAR HGB CONC 33.5 g/dl (32-36); PLATELET COUNT 154 K/uL (130-400); WHITE BLOOD COUNT 6.67 K/uL (4.8-10.8)
[2016-05-31 06:56] LABS: BUN/CREATININE RATIO 9.4 (10-20); CALCIUM 8.6 mg/dl (8.5-10.1); CREATININE 1.8 mg/dl (0.60-1.20)
[2016-05-31 07:30] VITALS: BP 161/80; PULSE 94; TEMP 36.7; O2SAT 96
[2016-05-31] MEDS: ALBUT/IPRATROP 3MG/0.5MG NEB 3 ML VIAL INH SCH ×2 (07:58→11:32)
[2016-05-31] MEDS: MULTIVITAMIN TAB PO SCH (08:59)
[2016-05-31] MEDS: FLUOXETINE HCL 20 MG CAP PO SCH (08:59)
[2016-05-31] MEDS: PANTOprazole SOD 40 MG TAB PO SCH (09:00)
[2016-05-31] MEDS: FERROUS SULFATE 325 MG TAB PO SCH (09:00)
[2016-05-31] MEDS: CEROVITE ADV FORMULA TAB PO SCH (09:00)
[2016-05-31] MEDS: DOCUSATE SODIUM/SENNA 50/8.6MG TAB PO SCH (09:00)
[2016-05-31] MEDS: CALCIUM 600MG + VIT D 400 IU TAB PO SCH (09:01)
[2016-05-31] MEDS: MAGNESIUM OXIDE 400 MG TAB PO SCH (09:01)
[2016-05-31] MEDS: METOPROLOL TARTRATE 25 MG TAB PO SCH (09:01)
[2016-05-31 11:32] VITALS: PULSE 88; O2SAT 95
--- NOTE | 2016-05-31 13:08 | Progress Note ---
Medicine Progress Note Date & Time of Visit: May 31, 2016 at 12:50. Subjective Pt was seen and examined Pt sitting in chair comfortable with no distress Pt said that she feels much better today She denies any chest pain, palpitation, dizziness and SOB Pt is not watching the president inauguration She said that she is not a Trump supporter Objective Last 8 Hrs Date Time Temp Pulse Resp B/P Pulse Ox O2 Delivery O2 Flow Rate FiO2 05/31/16 11:32 88 16 95 Room Air 05/31/16 08:00 Room Air 05/31/16 07:30 36.7 94 18 161/80 96 Room Air Physical Exam: General- no acute distress Head- atraumatic Eyes- PERRL, EOMI ENT- oropharynx clear Neck- supple, no JVD Lungs-No wheezing, no crackle Heart- s1/s2 present, +systolic murmur Abdomen- normal bowel sounds, soft, nontender, no masses or hepatosplenomegaly Extremities- no calf tenderness Neuro- alert, oriented, PERRL, EOMI Skin- warm & dry Laboratory Results: Last 24 Hours Test 05/31/16 05:57 White Blood Count 6.67 K/uL Red Blood Count 3.30 M/uL Hemoglobin 9.2 g/dL Hematocrit 27.5 % Mean Corpuscular Volume 83.3 fL Mean Corpuscular Hemoglobin 27.9 pg Mean Corpuscular Hemoglobin Concent 33.5 g/dl RDW Standard Deviation 52.3 fL RDW Coefficient of Variation 17.0 % Platelet Count 154 K/uL Mean Platelet Volume 12.0 fL Sodium Level 138 mmol/L Potassium Level 4.0 mmol/L Chloride Level 109 mmol/L Carbon Dioxide Level 18 mmol/L Anion Gap 11.0 mmol/L Blood Urea Nitrogen 17 mg/dl Creatinine 1.80 mg/dl Est Creatinine Clear Calc Drug Dose 19.6 ml/min Estimated GFR () 29.4 Estimated GFR (Non- 25.4 BUN/Creatinine Ratio 9.4 Random Glucose 98 mg/dl Calcium Level 8.6 mg/dl Assessment & Plan LEFT LOWER LOBE PNEUMONIA CXR on admission showed hazy left lower lung opacity Failed outpatient treatment with doxy Being treated for community acquired pna On zithromax and rocephin day 4 -blood has no growth -WBC was elevated on admission and normal now -Continue duonebs PRN Will dicharge on po zithromax to complete 5 days course. CKD STAGE 4 -creatinine baseline at 2.2 (bl=2) -Creatine today 1.8 -D/C IVF -Avoid nephrotoxic agents - Monitor BMP - Stable CHRONIC ANEMIA -HgB today 9.2 -pt denies active bleed -s/p transfuse 1 unit prbc on 05/30/16 - Continue monitor h/h - Stable HYPOTHYROIDISM -TSH >8 Possible related to acute illness because last TSH was wnl on 04/26 repeat TSH in a few weeks once medically stable -cont levothyroxine CORONARY ARTERY DISEASE -EKG no acute ischemia -continue BB and statin -no acute coronary sxs - Stable DYSLIPIDEMIA -cont statin DEPRESSION -more withdrawn recently due to illness -cont Prozac 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 H/O BREAST CA -s/p R mastectomy DVT PROPHYLAXIS -subq heparin CODE STATUS DNR Current Inpatient Medications: Current Inpatient Medications Medications (Trade) Dose Ordered Sig/Isabela Route Start Time Stop Time Status Last Admin Dose Admin Heparin Sodium (Porcine) (Heparin Sq 5000 Unit/0.5ml) 5,000 unit Q8 SQ 05/28/16 22:00 06/27/16 21:59 05/30/16 14:01 5,000 UNIT Acetaminophen (Tylenol Tab) 650 mg Q4H PRN PO 05/28/16 14:30 06/27/16 14:29 Ondansetron HCl (Zofran Inj) 4 mg Q6H PRN IV 05/28/16 14:30 06/27/16 14:29 05/29/16 16:57 4 MG Fluoxetine HCl (Prozac Cap) 20 mg DAILY PO 05/29/16 08:00 06/28/16 08:59 05/31/16 08:59 20 MG Levothyroxine Sodium (Synthroid Tab) 137 mcg DAILYBB PO 05/29/16 06:30 06/28/16 06:59 05/31/16 06:26 137 MCG Magnesium Oxide (Mag-Ox Tab) 400 mg BID PO 05/28/16 20:00 06/27/16 20:59 05/31/16 09:01 400 MG Metoprolol Tartrate (Lopressor Tab) 25 mg BID PO 05/28/16 20:00 06/27/16 20:59 05/31/16 09:01 25 MG Multivitamins (Multivitamin Tab) 1 tab DAILY PO 05/29/16 08:00 06/28/16 08:59 05/31/16 08:59 1 TAB Multivitamins/ Minerals (Multivitamin W/ Minerals Tab) 1 tab DAILY PO 05/29/16 08:00 06/28/16 08:59 05/31/16 09:00 1 TAB Senna/Docusate Sodium (Senokot S Tab) 1 tab DAILY PO 05/29/16 08:00 06/28/16 08:59 05/31/16 09:00 1 TAB Simvastatin (Zocor Tab) 10 mg QPM PO 05/28/16 21:00 06/27/16 20:59 05/30/16 20:40 10 MG Calcium/Vitamin D (Caltrate Plus Tab) 1 tab DAILY PO 05/29/16 08:00 06/28/16 08:59 05/31/16 09:01 1 TAB Ferrous Sulfate (Feosol Tab) 325 mg DAILY PO 05/29/16 08:00 06/28/16 08:59 05/31/16 09:00 325 MG Pantoprazole Sodium 40 mg 40 mg BID PO 05/28/16 20:00 06/27/16 20:59 05/31/16 09:00 40 MG Azithromycin 500 mg/Dextrose 255 ml @ 125 mls/hr DAILY@1700 IV 05/28/16 17:00 06/04/16 16:59 05/30/16 17:03 125 MLS/HR Ceftriaxone Sodium/Dextrose (Rocephin Inj/ Dextrose Add-[place] 50ML) 50 ml @ 100 mls/hr Q24H IV 05/28/16 16:00 06/04/16 15:59 05/30/16 17:11 100 MLS/HR Albuterol/ Ipratropium (Duoneb) 3 ml QIDR INH 05/28/16 16:00 06/27/16 15:59 05/31/16 11:32 3 ML
[2016-05-31 13:20] VITALS: BP 161/80; PULSE 88; TEMP 36.7; O2SAT 95
--- NOTE | 2016-05-31 13:35 | Discharge Instructions ---
Discharge Instructions Admission Reason for Admission: Pneumonia Discharge Discharge Diagnosis / Problem: Community acquired pneumonia, Anemia, CKD stage 4 Discharge Goals Goal(s): Decrease discomfort, Improve function, Improve disease control Activity Recommendations Activity Limitations: resume your previous activity (as tolerated) . Instructions / Follow-Up Instructions / Follow-Up Please Follow up with your primary care provider Monitor hemoglobin Complete Zithromax course ( 1 more tab tomorrow to complete the antibiotic course) Fall precaution Current Hospital Diet Patient's current hospital diet: AHA Diet (Heart Healthy) Discharge Diet Recommended Diet: AHA Diet (Heart Healthy) Pending Studies Studies pending at discharge: no Medical Emergencies . Who to Call and When: Medical Emergencies: If at any time you feel your situation is an emergency, please call 911 immediately. . Non-Emergent Contact Non-Emergency issues call your: Primary Care Provider Call Non-Emergent contact if: you have a fever, you have any medication questions . . "Provider Documentation" section prepared by Isaac Garza. VTE Core Measure Inpt VTE Proph given/why not?: Unfractionated heparin SQ
[2016-05-31] MEDS ORDERED: AZIT500T PO ×2 (13:36→14:41)
[2016-05-31] MEDS ORDERED: AZITHROMYCIN 250 MG TAB PO ONE ×2 (14:15→15:00)
--- NOTE | 2016-06-07 14:09 | Discharge Summary ---
Discharge Summary Admission Date: May 28, 2016 at 17:05 Discharge Date: May 31, 2016 Discharge Disposition: Home Principal Diagnosis: Pneumonia Secondary Diagnoses/Problems: Anemia CKD stage 4 Hypothyroidism Dyslipidemia Procedures: CHEST 2 VIEWS ROUTINE CLINICAL HISTORY: Chills, weakness and vomiting. Evaluate for pneumonia. COMPARISON STUDY: Chest radiograph May 13, 2016. FINDINGS: Note is made of right axillary surgical clips. No pneumothorax or pleural effusion is present. No evidence for pulmonary edema. Right lung is clear. Cardiac size is normal. Mediastinal contours are normal. The patient is status post right mastectomy. There is hazy left lower lung opacity. IMPRESSION: Hazy left lower lung opacity. This may reflect an area of pneumonia although overlying soft tissue artifact could appear similar. Radiographic follow up is recommended. Medication Reconciliation New Medications: Azithromycin (Zithromax) 500 Mg Tab 1 TAB PO DAILY for 1 Day, #1 TAB Continued Medications: Calcium Carbonate-Vitamin D (Calcium + D) 1 Tab Tab 1 TAB PO DAILY Ferrous Sulfate (Ferrous Sulfate) 325 Mg Tab 325 MG PO DAILY Fluoxetine (Prozac) 20 Mg Cap 20 MG PO DAILY, 0 Refills Ipratropium-Albuterol (Duoneb) 3 Ml Nebu 1 TREATMENT INH Q4H, INHA Levothyroxine Sodium (Levothyroxine Sodium) 137 Mcg Tab 137 MCG PO DAILY Magnesium Oxide (Mag-Ox) 400 Mg Tab 400 MG PO BID, TAB Metoprolol Tartrate (Lopressor) 25 Mg Tab 25 MG PO BID for 30 Days, #60 TAB Multiple Vitamin (Daily Flaco) 1 Tab Tab 1 TAB PO DAILY Ocuvite Preservision (Ocuvite Preservision) 1 Tab Tab 1 TAB PO DAILY, TAB Omeprazole (Prilosec) 20 Mg Capcr 20 MG PO BID, 0 Refills Sennosides-Docusate Sodium (Doc-Q-Lax) 1 Tab Tab 1 TAB PO DAILY Simvastatin (Zocor) 10 Mg Tab 10 MG PO QPM TAKE AFTER SUPPER. Discontinued Medications: Doxycycline Monohydrate (Monodox) 100 Mg Cap 100 MG PO BID, CAP Metronidazole (Flagyl) 500 Mg Tab 500 MG PO TID, TAB Admission Information HPI (per Admitting provider): This is an 85 y/o female with PMHx of bladder CA with urostomy, CKD stage 3, CAD , Hypothyroidism, Dyslipidemia and other problems as outlined below who presents to the ED from [facility] c/o persistent cough for a few weeks. Pt reports that she has had upper respiratory sxs for a few weeks. She was diagnosed with influenza A at the beginning of May and prescribed Tamiflu. Daughter states patient never ended up taking the Tamiflu because the pharmacy did not carry it. The cough persisted and patient was seen by her PCP Dr. Govea. She was diagnosed with bronchitis and given course of doxycycline and inhalers. Pt states that she has been taking her medicine however she continues to decline. This past weekend, patient had chills, continued productive cough and some nausea. Per daughter patient has not had an appetite for a few weeks now. Pt denies fever, diaphoresis, chest pain, SOB, wheezing, abd pain, vomiting, constipation, diarrhea, hematochezia, melena, bladder issues, LE edema ,calf pain, lightheadedness/dizziness. In the ED, vitals are stable. Pt is afebrile with leukocytosis >12k. HgB 9.2. Na+ 133. creat 2.2. TSH 8.57. CXR + LLL opacity. Pt will be admitted for further evaluation and treatment. Physical Exam (per Admitting): General Appearance: WD/WN, no apparent distress, + pertinent finding (Pt is a pleasant 85 y/o with daughter at bedside) Head: normocephalic, atraumatic Eyes: normal inspection ENT: hearing grossly normal Neck: supple Respiratory/Chest: chest non-tender, no respiratory distress, + crackles ( left base), + pertinent finding (no wheezing noted) Cardiovascular: regular rate, rhythm, no edema, no murmur Abdomen/GI: normal bowel sounds, non tender, soft Back: normal inspection Extremities/Musculoskelatal: normal inspection, no calf tenderness, no pedal edema Neurologic/Psych: alert, normal mood/affect, oriented x 3 Skin: normal color, warm/dry Hospital Course LEFT LOWER LOBE PNEUMONIA CXR on admission showed hazy left lower lung opacity Failed outpatient treatment with doxy Being treated for community acquired pna On zithromax and rocephin day 4 -blood has no growth -WBC was elevated on admission and normal now -Continue duonebs PRN Will dicharge on po zithromax to complete 5 days course. CKD STAGE 4 -creatinine baseline at 2.2 (bl=2) -Creatine today 1.8 -D/C IVF -Avoid nephrotoxic agents - Monitor BMP - Stable CHRONIC ANEMIA -HgB today 9.2 -pt denies active bleed -s/p transfuse 1 unit prbc on 05/30/16 - Continue monitor h/h - Stable HYPOTHYROIDISM -TSH >8 Possible related to acute illness because last TSH was wnl on 04/26 repeat TSH in a few weeks once medically stable -cont levothyroxine CORONARY ARTERY DISEASE -EKG no acute ischemia -continue BB and statin -no acute coronary sxs - Stable DYSLIPIDEMIA -cont statin DEPRESSION -more withdrawn recently due to illness -cont Prozac 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 Discharge Instructions Discharge Instructions Admission Reason for Admission: Pneumonia Discharge Discharge Diagnosis / Problem: Community acquired pneumonia, Anemia, CKD stage 4 Discharge Goals Goal(s): Decrease discomfort, Improve function, Improve disease control Activity Recommendations Activity Limitations: resume your previous activity (as tolerated) . Instructions / Follow-Up Instructions / Follow-Up Please Follow up with your primary care provider Monitor hemoglobin Complete Zithromax course ( 1 more tab tomorrow to complete the antibiotic course) Fall precaution Current Hospital Diet Patient's current hospital diet: AHA Diet (Heart Healthy) Discharge Diet Recommended Diet: AHA Diet (Heart Healthy) Pending Studies Studies pending at discharge: no Medical Emergencies . Who to Call and When: Medical Emergencies: If at any time you feel your situation is an emergency, please call 911 immediately. . Non-Emergent Contact Non-Emergency issues call your: Primary Care Provider Call Non-Emergent contact if: you have a fever, you have any medication questions . . "Provider Documentation" section prepared by Isaac Garza. VTE Core Measure Inpt VTE Proph given/why not?: Unfractionated heparin SQ Additional Copies To MIKE RUBI M.D.
== END 2016-05-31 15:30 | disposition home or self-care (01) | DRG 194 ==
LOC: ENRESERVDT → ENRESERVTM → C.EDB 11:04 → UNDOADMIN 14:31 → C.MS4W 14:31
PROVIDERS: ADMIT Internal Medicine; ATTEND Internal Medicine
DX: J18.9 Pneumonia, unspecified organism (principal); N18.4 Chronic kidney disease, stage 4 (severe); D63.8 Anemia in other chronic diseases classified elsewhere; E03.9 Hypothyroidism, unspecified; I25.10 Atherosclerotic heart disease of native coronary artery without angina pectoris; E78.5 Hyperlipidemia, unspecified; F32.9 Major depressive disorder, single episode, unspecified; Z66 Do not resuscitate; Z85.51 Personal history of malignant neoplasm of bladder; Z93.6 Other artificial openings of urinary tract status; Z87.891 Personal history of nicotine dependence; Z79.899 Other long term (current) drug therapy

== ENCOUNTER → 2016-09-13 | Outpatient (CLI) | payer OTHER ==
[~2016-09-13] MED LIST changes: +ACET-1311 PO; +AZIT500T PO; +BENZ1CAP90 PO; +CALC600T9 PO; -CLTP PO; +DOCU-94 PO; +FERR1TAB62 PO; +GUAISYP8 PO; +HYDR-4795 TOP; +IPRASOL4 INH; -LEVO137T14 PO; +MAGN400T6 PO; -MCRK20 PO; +METO25TA56 PO; +MULT-411 PO; -ONDA4TAB7 SL; +SENN8.6T96 PO; +SYN137 PO; -TMFS PO; +VNTHFA/IN INH; +ZFRODT/8 PO
[2016-09-13 08:46] LABS: BLOOD UREA NITROGEN 35 mg/dl (7-18); BUN/CREATININE RATIO 13.6 (10-20); CARBON DIOXIDE 26 mmol/L (21-32); CHLORIDE 97 mmol/L (98-107); GLUCOSE 118 mg/dl (70-99); SODIUM 131 mmol/L (136-145)
[2016-09-13 09:01] LABS: HEMATOCRIT 25.5 % (37-47); MEAN CELL VOLUME 87.3 fL (80-100); MEAN CORPUSCULAR HEMOGLOBIN 28.4 pg (25-34); MEAN CORPUSCULAR HGB CONC 32.5 g/dl (32-36); MEAN PLATELET VOLUME 12.6 fL (7.4-10.4); PLATELET COUNT 88 K/uL (130-400); RED BLOOD COUNT 2.92 M/uL (4.2-5.4); WHITE BLOOD COUNT 10.42 K/uL (4.8-10.8)
[2016-09-13 09:02] LABS: PLT ESTIMATE DECREASED
[2016-09-13 09:31] LABS: CALCIUM 8.8 mg/dl (8.5-10.1)
== END | disposition home or self-care (01) ==
LOC: C.LABCC 08:18
PROVIDERS: ATTEND Internal Medicine
DX: N18.3 Chronic kidney disease, stage 3 (moderate) (principal); I25.10 Atherosclerotic heart disease of native coronary artery without angina pectoris; F32.9 Major depressive disorder, single episode, unspecified; E03.9 Hypothyroidism, unspecified; E78.5 Hyperlipidemia, unspecified

== ENCOUNTER → 2016-10-08 | Outpatient (CLI) | payer OTHER ==
[2016-10-08 13:00] LABS: HEMATOCRIT 29.4 % (37-47); MEAN CELL VOLUME 87.2 fL (80-100); MEAN CORPUSCULAR HEMOGLOBIN 27.9 pg (25-34); MEAN PLATELET VOLUME 12.7 fL (7.4-10.4); PLATELET COUNT 80 K/uL (130-400); RED BLOOD COUNT 3.37 M/uL (4.2-5.4); WHITE BLOOD COUNT 15.14 K/uL (4.8-10.8)
[2016-10-08 13:02] LABS: PLT ESTIMATE DECREASED
[2016-10-08 13:11] LABS: BLOOD UREA NITROGEN 32 mg/dl (7-18); BUN/CREATININE RATIO 15.4 (10-20); CARBON DIOXIDE 23 mmol/L (21-32); CHLORIDE 99 mmol/L (98-107); GLUCOSE 114 mg/dl (70-99); POTASSIUM 4.3 mmol/L (3.5-5.1); SODIUM 131 mmol/L (136-145)
[2016-10-08 13:20] LABS: CALCIUM 8.8 mg/dl (8.5-10.1)
== END | disposition home or self-care (01) ==
LOC: C.LABWYN 14:11
PROVIDERS: ATTEND Internal Medicine
DX: N18.9 Chronic kidney disease, unspecified (principal)

== ENCOUNTER 2016-10-09 12:54 | Emergency (ER) | payer OTHER ==
[~2016-10-09] VITALS: Ht 152.4 cm; Wt 60.0 kg
[~2016-10-09 12:54] MED LIST changes: -ACET-1311 PO; -BENZ1CAP90 PO; -DOCU-94 PO; -GUAISYP8 PO; -HYDR-4795 TOP; -METO25TA56 PO; -VNTHFA/IN INH; -ZFRODT/8 PO
[2016-10-09 12:59] VITALS: TEMP 37.1; Ht 152.4 cm; Wt 60.0 kg
[2016-10-09] MEDS ORDERED: ALBUT/IPRATROP 3MG/0.5MG NEB 3 ML VIAL INH STA (13:11)
[2016-10-09] MEDS ORDERED: SODIUM CHLORIDE 0.9% 500ML 500 ML IV STA (13:11)
[2016-10-09] MEDS ORDERED: ACET-1311 PO (13:45)
[2016-10-09] MEDS ORDERED: ZFRODT/8 PO (13:45)
[2016-10-09] MEDS ORDERED: METO25TA56 PO (13:45)
[2016-10-09] MEDS ORDERED: GUAISYP8 PO (13:45)
[2016-10-09] MEDS ORDERED: DOCU-94 PO (13:45)
[2016-10-09] MEDS ORDERED: VNTHFA/IN INH (13:45)
[2016-10-09] MEDS ORDERED: HYDR-4795 TOP (13:45)
[2016-10-09 14:11] LABS: BUN/CREATININE RATIO 14.8 (10-20); CALCIUM 8.6 mg/dl (8.5-10.1); CREATININE 2.3 mg/dl (0.60-1.20); POTASSIUM 4.5 mmol/L (3.5-5.1)
[2016-10-09 14:14] LABS: ALB/GLOB RATIO 0.7 (0.9-2)
--- NOTE | 2016-10-09 14:20 | DIAGNOSTIC IMAGING REPORT ---
TWO VIEW CHEST CLINICAL HISTORY: Dyspnea. FINDINGS: PA and lateral chest radiographs are compared to study dated 05/28/2016. Correlation is a with chest CT dated 12/10/2007. The PA view is degraded by patient rotation. The cardiomediastinal silhouette is unremarkable. There is atherosclerotic calcification of the thoracic aorta. Chronic interstitial thickening is similar to previous. The lungs and pleural spaces are clear. There is no pneumothorax. The skeletal structures are osteopenic. The bony thorax appears intact. Surgical clips are noted in the right axilla. Surgical clips project over the left breast. The right breast is surgically absent. IMPRESSION: No active disease in the chest. Electronically signed by: Richard Hills M.D. 10/09/2016 2:19 PM Dictated Date/Time: 10/09/2016 2:14 PM
[2016-10-09 14:31] LABS: HEMATOCRIT 28.7 % (37-47); MEAN CELL VOLUME 85.7 fL (80-100); MEAN CORPUSCULAR HGB CONC 33.8 g/dl (32-36); RED BLOOD COUNT 3.35 M/uL (4.2-5.4); WHITE BLOOD COUNT 14.84 K/uL (4.8-10.8)
[2016-10-09 14:32] LABS: BASO % 0.1 %; BASO ABS # 0.01 K/uL (0-0.2); COMPLETE YES; EOS % 0.1 %; IG% 0.5 %; LYMPH % 13.2 %; LYMPH ABS # 1.96 K/uL (1.2-3.4); MONO % 14.8 %; NEUT % 71.3 %; PLATELET COUNT 93 K/uL (130-400); PLT ESTIMATE DECREASED
[2016-10-09] MEDS ORDERED: BENZONATATE 100MG CAP PO ONE (15:30)
[2016-10-09] MEDS ORDERED: ALBUTEROL HFA 8 GM INHALER INH ONE (15:30)
[2016-10-09] MEDS ORDERED: BENZ1CAP90 PO (15:32)
--- NOTE | 2016-10-09 15:33 | EMERGENCY ROOM VISIT NOTE ---
History Report prepared by Eliezer: Dioni Rai Under the Supervision of: Dr. Neil Solorzano D.O. First contact with patient: 13:04 Chief Complaint: FLU LIKE SX Stated Complaint: COUGH,FEVER History of Present Illness The patient is a 86 year old female who presents to the Emergency Room with complaints of worsening flu like symptoms which began a week ago. The patient is accompanied by her daughter who reports that the patient is a resident of [facility]. Her daughter states that she has been having a productive cough with clear sputum, fever, respiratory issues, and nausea for the last couple of days. The patient states that she has been taking Zofran for the nausea, which has been helping relieve symptoms. The patient's daughter reports that the patient also has been treated with a nebulizer. The patient states that she was prescribed a z pack, which she finished yesterday. The daughter states that the patient has a history of smoking but quit 50 years ago. She also reports that the patient has a history of pneumonia, bronchitis, and kidney disease. The patient denies any use of blood thinners, history of heart failure, or diabetes. The patient's daughter states that the patient does have an aortic valve issue. Source of History: patient, family (daughter) Onset: a week ago Position: other (global) Timing: worsening Modifying Factors (Relieving): other (Zofran for nausea) Associated Symptoms: + cough, + fevers, + nausea Review of Systems See HPI for pertinent positives & negatives. A total of 10 systems reviewed and were otherwise negative. Past Medical & Surgical Medical Problems: (1) ARF (acute renal failure) (2) Bladder cancer (3) bladder removal (4) Breast CA (5) CAD (coronary artery disease) (6) CKD (chronic kidney disease), stage III (7) History of left heart catheterization (LHC) (8) HLD (hyperlipidemia) (9) Hypothyroidism (10) Pneumonia Surgical Problems: (1) H/O cystoscopy (2) H/O foot surgery (3) H/O mastectomy (4) H/O: hysterectomy (5) History of appendectomy (6) History of carpal tunnel surgery (7) History of esophagogastroduodenoscopy (EGD) (8) History of urostomy Family History Cancer Social History Smoking Status: Never Smoker Alcohol Use: none Drug Use: none Marital Status: Housing Status: lives alone Occupation Status: retired Current/Historical Medications Scheduled Calcium Carbonate-Vitamin D (Calcium + D), 1 TAB PO DAILY Docusate Sodium (Colace), 100 MG PO DAILY Ferrous Sulfate (Ferrous Sulfate), 325 MG PO DAILY Fluoxetine (Prozac), 20 MG PO DAILY Levothyroxine Sodium (Levothyroxine Sodium), 137 MCG PO DAILY Magnesium Oxide (Mag-Ox), 400 MG PO BID Metoprolol Tartrate (Lopressor) (Lopressor), 12.5 MG PO BID Multiple Vitamin (Daily Flaco), 1 TAB PO DAILY Ocuvite Preservision (Ocuvite Preservision), 1 TAB PO DAILY Omeprazole (Prilosec), 20 MG PO BID Sennosides-Docusate Sodium (Doc-Q-Lax), 1 TAB PO DAILY Simvastatin (Zocor), 10 MG PO QPM Scheduled PRN Acetaminophen (Tylenol), 650 MG PO Q6 PRN for Pain or Fever Albuterol Hfa (Ventolin Hfa), 2 PUFFS INH Q4H PRN for cough/wheeze Benzonatate (Tessalon Perles), 200 MG PO Q6HWA PRN for Cough Guaifenesin-Codeine (Guaiatussin Ac), 5 ML PO Q4 PRN for Cough Hydrocortisone (Topical) (Proctozone-Hc), 1 APPLN TOP DAILY PRN for hemorrhoids Ondansetron (Ondansetron Odt), 4 MG PO Q6 PRN for nausea Allergies Coded Allergies: Sulfa Antibiotics (Verified Allergy, Intermediate, "SULFA DRUGS": RASH, NAUSEA, 10/09/16) Lorazepam (Verified Allergy, Mild, DELIRIUM, 10/09/16) Ciprofloxacin (Verified Allergy, Unknown, allergy, 10/09/16) Scopolamine (Verified Adverse Reaction, Mild, DIZZINESS, 10/09/16) PT ABLE TO TAKE MECLIZINE JUST NOT PATCH Physical Exam Vital Signs Date Time Temp Pulse Resp B/P Pulse Ox O2 Delivery O2 Flow Rate FiO2 10/09/16 14:16 98 18 148/65 96 Room Air 10/09/16 12:59 37.1 91 18 116/63 93 Room Air Physical Exam CONSTITUTIONAL/VITAL SIGNS: Reviewed / noted above. GENERAL: Non-toxic in appearance. INTEGUMENTARY: Warm, dry, and [place]. HEAD: Normocephalic. EYES: without scleral icterus or trauma. ENT/OROPHARYNX: clear and moist. LYMPHADENOPATHY/NECK: Is supple without lymphadenopathy or meningismus. RESPIRATORY: Expiratory wheezing left greater than right. CARDIOVASCULAR: Regular rate and rhythm. GI/ABDOMEN: Soft and nontender. No organomegaly or pulsatile mass. No rebound or guarding. Normal bowel sounds. EXTREMITIES: Warm and well perfused. BACK: No CVA tenderness. NEUROLOGICAL: Intact without focal deficits. PSYCHIATRIC: normal affect. MUSCULOSKELETAL: Normally developed with good muscle tone. Medical Decision & Procedures ER Provider Diagnostic Interpretation: X ray results and stated below per my interpretation and radiology interpretation. TWO VIEW CHEST CLINICAL HISTORY: Dyspnea. FINDINGS: PA and lateral chest radiographs are compared to study dated 05/28/2016. Correlation is a with chest CT dated 12/10/2007. The PA view is degraded by patient rotation. The cardiomediastinal silhouette is unremarkable. There is atherosclerotic calcification of the thoracic aorta. Chronic interstitial thickening is similar to previous. The lungs and pleural spaces are clear. There is no pneumothorax. The skeletal structures are osteopenic. The bony thorax appears intact. Surgical clips are noted in the right axilla. Surgical clips project over the left breast. The right breast is surgically absent. IMPRESSION: No active disease in the chest. Electronically signed by: Richard Hills M.D. 10/09/2016 2:19 PM Dictated Date/Time: 10/09/2016 2:14 PM Laboratory Results 10/09/16 13:36 Red Blood Count 3.35, Mean Corpuscular Volume 85.7, Mean Corpuscular Hemoglobin 29.0, Mean Corpuscular Hemoglobin Concent 33.8, Mean Platelet Volume 13.0, Neutrophils (%) (Auto) 71.3, Lymphocytes (%) (Auto) 13.2, Monocytes (%) (Auto) 14.8, Eosinophils (%) (Auto) 0.1, Basophils (%) (Auto) 0.1, Neutrophils # (Auto ) 10.59, Lymphocytes # (Auto) 1.96, Monocytes # (Auto) 2.20, Eosinophils # (Auto ) 0.01, Basophils # (Auto) 0.01 10/09/16 13:36 Test 10/09/16 13:36 White Blood Count 14.84 K/uL (4.8-10.8) Red Blood Count 3.35 M/uL (4.2-5.4) Hemoglobin 9.7 g/dL (12.0-16.0) Hematocrit 28.7 % (37-47) Mean Corpuscular Volume 85.7 fL (80-100) Mean Corpuscular Hemoglobin 29.0 pg (25-34) Mean Corpuscular Hemoglobin Concent 33.8 g/dl (32-36) Platelet Count 93 K/uL (130-400) Mean Platelet Volume 13.0 fL (7.4-10.4) Neutrophils (%) (Auto) 71.3 % Lymphocytes (%) (Auto) 13.2 % Monocytes (%) (Auto) 14.8 % Eosinophils (%) (Auto) 0.1 % Basophils (%) (Auto) 0.1 % Neutrophils # (Auto) 10.59 K/uL (1.4-6.5) Lymphocytes # (Auto) 1.96 K/uL (1.2-3.4) Monocytes # (Auto) 2.20 K/uL (0.11-0.59) Eosinophils # (Auto) 0.01 K/uL (0-0.5) Basophils # (Auto) 0.01 K/uL (0-0.2) RDW Standard Deviation 51.7 fL (36.4-46.3) RDW Coefficient of Variation 16.2 % (11.5-14.5) Immature Granulocyte % (Auto) 0.5 % Immature Granulocyte # (Auto) 0.07 K/uL (0.00-0.02) Platelet Estimate DECREASED Anion Gap 7.0 mmol/L (3-11) Est Creatinine Clear Calc Drug Dose 14.5 ml/min Estimated GFR () 21.7 Estimated GFR (Non- 18.8 BUN/Creatinine Ratio 14.8 (10-20) Calcium Level 8.6 mg/dl (8.5-10.1) Total Bilirubin 0.5 mg/dl (0.2-1) Aspartate Amino Transf (AST/SGOT) 9 U/L (15-37) Alanine Aminotransferase (ALT/SGPT) 13 U/L (12-78) Alkaline Phosphatase 89 U/L (45-117) Total Protein 7.5 gm/dl (6.4-8.2) Albumin 3.0 gm/dl (3.4-5.0) Globulin 4.5 gm/dl (2.5-4.0) Albumin/Globulin Ratio 0.7 (0.9-2) Laboratory results as stated above per my review. Medications Administered Medications (Trade) Dose Ordered Sig/Isabela Route Start Time Stop Time Status Last Admin Dose Admin Sodium Chloride (Nss 500ml) 500 ml @ 999 mls/hr Q31M STAT IV 10/09/16 13:11 10/09/16 13:41 DC 10/09/16 13:32 999 MLS/HR Albuterol/ Ipratropium (Duoneb) 3 ml NOW STAT INH 10/09/16 13:11 10/09/16 13:14 DC 10/09/16 13:31 3 ML Prednisone (PredniSONE TAB) 60 mg NOW STAT PO 10/09/16 13:11 10/09/16 13:14 DC 10/09/16 13:31 60 MG ED Course 1310: Previous medical records were reviewed. The patient was evaluated in room C02. A complete history and physical examination was performed. 1311: Prednisone 60 mg PO, Duoneb 3 ml INH, Sodium Chloride 500 ml @ 999 mls/hr IV. 1530: Albuterol 2 puffs INH, Benzonatate 100 mg PO. 1532: On reevaluation, the patient is doing well. I discussed the results and findings with the patient. She verbalized agreement of the treatment plan. She was discharged home. Medical Decision Blood pressure Screening: Patient was found to have normal blood pressure on screening and does not require follow-up. Medication Reconciliation: I attest that I have personally reviewed the patient' s current medication list. The differential was considered includes acute myocardial infarction, acute coronary syndrome, myocarditis, pericarditis, pericardial effusions /tamponad, esophageal perforation, pulmonary embolism, pneumonia, pneumothorax, cardiomyopathy, congestive heart, anemia , COPD/asthma exacerbation. This is an 86-year-old female who presents to the ED with a chief complaint of a cough. She coughs up a clear sputum. The patient reports that she just finished a Z-Moreno yesterday. This did not help her symptoms. She had some blood work yesterday that revealed an elevated BUN and creatinine. This is slightly above the patient's baseline. The patient has not been eating and drinking as well as normal. Her physical exam reveals some expiratory wheezing. She does have a cough that produces a clear sputum. She is in no distress. Oxygen saturations were 93%. White blood cell count is 14.8. Hemoglobin is 9.7. The BUN is 34 and a creatinine is 2.3. Chest x-ray did not show any acute process. The patient was treated with IV fluids normal saline 500 mL. She was treated with prednisone by mouth as well as a DuoNeb treatment. The patient states the prednisone keeps her up and she did not want a course of prednisone. She was discharged with an inhaler for albuterol as well as Tessalon Perles. She will follow-up with her doctor. Impression Primary Impression: Bronchitis Scribe Attestation The scribe's documentation has been prepared under my direction and personally reviewed by me in its entirety. I confirm that the note above accurately reflects all work, treatment, procedures, and medical decision making performed by me. Departure Information Dispostion Home / Self-Care Prescriptions Benzonatate (Tessalon Perles) 200 Mg Cap 200 MG PO Q6HWA Y for Cough, #20 CAP Prov: Neil Solorzano D.O. 10/09/16 Referrals BERENICE ZAMARRIPA (PCP) Patient Instructions My [facility] Additional Instructions Albuterol inhaler: 2 puffs every 4 hours as needed for cough. Tessalon Perles: As prescribed for cough. Follow-up with your doctor for further care and evaluation in 1-6 days. Return to the emergency department for worsening or new symptoms or any concerns. You have been examined and treated today on an emergency basis only. This is not a substitute for, or an effort to provide, complete comprehensive medical care. It is impossible to recognize and treat all injuries or illnesses in a single emergency department visit. It is therefore important that you follow up closely with your doctor. Call as soon as possible for an appointment.
[2016-10-09 15:53] VITALS: BP 113/67; PULSE 102; O2SAT 93
== END 2016-10-09 15:55 | disposition home or self-care (01) ==
LOC: C.EDB 12:56 → C.EDC 15:55
DX: J40 Bronchitis, not specified as acute or chronic (principal); Z87.891 Personal history of nicotine dependence; Z87.01 Personal history of pneumonia (recurrent); Z85.3 Personal history of malignant neoplasm of breast; Z85.51 Personal history of malignant neoplasm of bladder; I25.10 Atherosclerotic heart disease of native coronary artery without angina pectoris; N18.3 Chronic kidney disease, stage 3 (moderate); E78.5 Hyperlipidemia, unspecified; E03.9 Hypothyroidism, unspecified; Z90.10 Acquired absence of unspecified breast and nipple; Z90.710 Acquired absence of both cervix and uterus; Z80.9 Family history of malignant neoplasm, unspecified; Z79.899 Other long term (current) drug therapy

== ENCOUNTER → 2017-02-20 | Outpatient (CLI) | payer OTHER ==
[~2017-02-20] MED LIST changes: +ACET-1311 PO; -AZIT500T PO; +BENZ1CAP90 PO; +DOCU-94 PO; -FERR1TAB62 PO; +FERR325T PO; +GUAISYP8 PO; +HYDR-4795 TOP; -IPRASOL4 INH; -LPR25 PO; +METO25TA56 PO; +SENN8.6T11 PO; -SENN8.6T96 PO; +VNTHFA/IN INH; +ZFRODT/8 PO
[2017-02-20 12:51] LABS: BLOOD UREA NITROGEN 36 mg/dl (7-18); BUN/CREATININE RATIO 24.1 (10-20); CALCIUM 9.3 mg/dl (8.5-10.1); CARBON DIOXIDE 29 mmol/L (21-32); CHLORIDE 105 mmol/L (98-107); CHOLESTEROL 117 mg/dl (0-200); GLUCOSE 100 mg/dl (70-99); POTASSIUM 4.3 mmol/L (3.5-5.1); SODIUM 139 mmol/L (136-145)
[2017-02-20 12:52] LABS: HEMATOCRIT 33.5 % (37-47); MEAN CELL VOLUME 89.8 fL (80-100); MEAN CORPUSCULAR HGB CONC 32.2 g/dl (32-36); MEAN PLATELET VOLUME 12.7 fL (7.4-10.4); PLATELET COUNT 98 K/uL (130-400); RED BLOOD COUNT 3.73 M/uL (4.2-5.4); WHITE BLOOD COUNT 7.17 K/uL (4.8-10.8)
[2017-02-20 12:54] LABS: PLT ESTIMATE DECREASED
[2017-02-20 13:01] LABS: CHOLESTEROL/HDL RATIO 2.4; HDL CHOLESTEROL 49 mg/dl; LDL CHOLESTEROL CALCULATED 57 mg/dl; TRIGLYCERIDES 57 mg/dl (0-150); VERY LOW DENSITY LIPOPROT CALC 11 mg/dl
== END | disposition home or self-care (01) ==
LOC: C.LABWYN 09:51
PROVIDERS: ATTEND Internal Medicine
DX: M81.0 Age-related osteoporosis without current pathological fracture (principal); E03.9 Hypothyroidism, unspecified; N18.3 Chronic kidney disease, stage 3 (moderate)

== ENCOUNTER → 2017-04-22 | Outpatient (CLI) | payer OTHER ==
[~2017-04-22] MED LIST changes: -BENZ1CAP90 PO; +FERR1TAB62 PO; -FERR325T PO; -SENN8.6T11 PO; +SENN8.6T96 PO
== END | disposition home or self-care (01) ==
LOC: C.LABWYN 09:26
PROVIDERS: ATTEND Internal Medicine
DX: E03.9 Hypothyroidism, unspecified (principal)

== ENCOUNTER → 2017-04-29 | Outpatient (CLI) | payer OTHER ==
[2017-04-29 12:53] LABS: HEMATOCRIT 31.5 % (37-47); HEMOGLOBIN 10.1 g/dL (12.0-16.0); MEAN CELL VOLUME 89.5 fL (80-100); MEAN CORPUSCULAR HEMOGLOBIN 28.7 pg (25-34); MEAN CORPUSCULAR HGB CONC 32.1 g/dl (32-36); MEAN PLATELET VOLUME 12.9 fL (7.4-10.4); PLATELET COUNT 80 K/uL (130-400); RED CELL DISTRIBUTION WIDTH SD 52.7 fL (36.4-46.3); WHITE BLOOD COUNT 6.84 K/uL (4.8-10.8)
== END | disposition home or self-care (01) ==
LOC: C.LABWYN 14:10
PROVIDERS: ATTEND Internal Medicine
DX: J06.9 Acute upper respiratory infection, unspecified (principal)

== ENCOUNTER → 2017-06-06 | Outpatient (CLI) | payer OTHER ==
[2017-06-06 09:08] LABS: BLOOD UREA NITROGEN 31 mg/dl (7-18); CREATININE 1.44 mg/dl (0.60-1.20); GLUCOSE 103 mg/dl (70-99)
[2017-06-06 09:09] LABS: CALCIUM 9.1 mg/dl (8.5-10.1); CARBON DIOXIDE 30 mmol/L (21-32); POTASSIUM 4.5 mmol/L (3.5-5.1); SODIUM 138 mmol/L (136-145)
[2017-06-06 09:24] LABS: HEMATOCRIT 29.4 % (37-47); HEMOGLOBIN 9.5 g/dL (12.0-16.0); MEAN CELL VOLUME 90.5 fL (80-100); MEAN CORPUSCULAR HEMOGLOBIN 29.2 pg (25-34); MEAN CORPUSCULAR HGB CONC 32.3 g/dl (32-36); MEAN PLATELET VOLUME 12.8 fL (7.4-10.4); PLATELET COUNT 97 K/uL (130-400); RED CELL DISTRIBUTION WIDTH CV 16.3 % (11.5-14.5); RED CELL DISTRIBUTION WIDTH SD 54.3 fL (36.4-46.3); WHITE BLOOD COUNT 6.29 K/uL (4.8-10.8)
== END | disposition home or self-care (01) ==
LOC: C.LABWYN 08:32
PROVIDERS: ATTEND Internal Medicine
DX: E86.0 Dehydration (principal)

== ENCOUNTER → 2017-06-19 | Outpatient (CLI) | payer OTHER ==
[2017-06-19 13:19] LABS: BLOOD UREA NITROGEN 31 mg/dl (7-18); CALCIUM 9.6 mg/dl (8.5-10.1); CARBON DIOXIDE 29 mmol/L (21-32); CREATININE 1.57 mg/dl (0.60-1.20); GLUCOSE 105 mg/dl (70-99); POTASSIUM 4.5 mmol/L (3.5-5.1); SODIUM 138 mmol/L (136-145)
== END | disposition home or self-care (01) ==
LOC: C.LABWYN 12:09
PROVIDERS: ATTEND Internal Medicine
DX: Z09 Encounter for follow-up examination after completed treatment for conditions other than malignant neoplasm (principal)

== ENCOUNTER → 2017-09-25 | Outpatient (CLI) | payer OTHER ==
[2017-09-25 12:47] LABS: HEMATOCRIT 33.7 % (37-47); HEMOGLOBIN 10.8 g/dL (12.0-16.0); MEAN CELL VOLUME 88.7 fL (80-100); MEAN CORPUSCULAR HEMOGLOBIN 28.4 pg (25-34); MEAN PLATELET VOLUME 12.4 fL (7.4-10.4); PLATELET COUNT 101 K/uL (130-400); RED CELL DISTRIBUTION WIDTH CV 16.5 % (11.5-14.5); RED CELL DISTRIBUTION WIDTH SD 53.2 fL (36.4-46.3)
[2017-09-25 13:27] LABS: BLOOD UREA NITROGEN 33 mg/dl (7-18); CARBON DIOXIDE 30 mmol/L (21-32); CHOLESTEROL 119 mg/dl (0-200); CREATININE 1.67 mg/dl (0.60-1.20); GLUCOSE 97 mg/dl (70-99); LDL CHOLESTEROL CALCULATED 65 mg/dl; POTASSIUM 4.5 mmol/L (3.5-5.1); SODIUM 138 mmol/L (136-145)
== END | disposition home or self-care (01) ==
LOC: C.LABWYN 08:47
PROVIDERS: ATTEND Nurse Practitioner Adult Health
DX: E78.5 Hyperlipidemia, unspecified (principal); N18.9 Chronic kidney disease, unspecified

== ENCOUNTER → 2017-11-27 | Outpatient (CLI) | payer OTHER ==
[2017-11-27 13:46] LABS: BLOOD UREA NITROGEN 30 mg/dl (7-18); CALCIUM 9.4 mg/dl (8.5-10.1); CARBON DIOXIDE 27 mmol/L (21-32); CREATININE 1.42 mg/dl (0.60-1.20); GLUCOSE 99 mg/dl (70-99); POTASSIUM 4.3 mmol/L (3.5-5.1); SODIUM 138 mmol/L (136-145)
== END | disposition home or self-care (01) ==
LOC: C.LABWYN 11:26
PROVIDERS: ATTEND Nurse Practitioner Adult Health
DX: N18.9 Chronic kidney disease, unspecified (principal)

== ENCOUNTER 2019-03-17 13:16 | Inpatient (IN) ==
[2019-03-17] MEDS ORDERED: SODIUM CHLORIDE 0.9% 500 ML IV SCH (13:45)
[2019-03-17 14:11] LABS: Basophils # (auto) 0.01 K/uL (0-0.2); Basophils % (auto) 0.1 %; Eosinophils # (auto) 0.01 K/uL (0-0.5); Eosinophils % (auto) 0.1 %; Hematocrit (blood only) 30.8 % (37-47); Immature Granulocytes # (auto) 0.09 K/uL (0.00-0.02); Immature Granulocytes % (auto) 0.7 %; Lymphocytes # (auto) 1.67 K/uL (1.2-3.4); Lymphocytes % (auto) 12.1 %; Mean Corpuscular Hemoglobin 28.6 pg (25-34); Mean Corpuscular Hgb Conc 32.5 g/dL (32-36); Mean Platelet Volume 11.9 fL (7.4-10.4); Monocytes % (auto) 15.9 %; Neutrophils # (auto) 9.84 K/uL (1.4-6.5); Neutrophils % (auto) 71.1 %; Platelet Count 162 K/uL (130-400); RDW Coefficient of Variation 16.6 % (11.5-14.5); White Blood Count 13.82 K/uL (4.8-10.8)
[2019-03-17 14:27] LABS: Albumin Level 2.9 gm/dl (3.4-5.0); BUN Creatinine Ratio 16.3 (10-20); Calcium 8.9 mg/dl (8.5-10.1); Est GFR (African American) 20.7; Est GFR (Non-African American) 17.8; Potassium 4.3 mmol/L (3.5-5.1)
[2019-03-17 14:41] LABS: Albumin Globulin Ratio 0.6 (0.9-2); Bilirubin,Total 0.4 mg/dl (0.2-1); Globulin 4.9 gm/dl (2.5-4.0); Total Protein 7.8 gm/dl (6.4-8.2); Troponin I 0.233 ng/ml (0-0.045)
--- NOTE | 2019-03-17 16:07 | History & Physical Report ---
Date of Service March 17, 2019 Assessment & Plan (1) UTI (urinary tract infection): Pt is 87 y/o F with PMH bladder CA with urostomy, CKD III-IV, CAD, hypothyroidism, dyslipidemia, chronic anemia, depression, h/o breast CA s/p R mastectomy, h/o thrombocytopenia, asthma, paroxysmal atrial fibrillation presented with c/o nausea x 4 days and noted dark urine in urostomy bag. Preliminary urine culture from 03/16/19 +proteus. Hx proteus UTI in past that was pansensitive -Urine culture pending -Blood culture pending -Rocephin daily -CBC, BMP in am (2) Nausea: C/O nausea and decreased oral intake past couple of day. No abdominal pain. Denies diarrhea, constipation, fever/chills. May be secondary to UTI Monitor (3) Acute kidney injury superimposed on CKD: History CKD III-IV Today Cr: 2.3. Cr: 1.7 on 09/2018 -Was given 500ml NSS in ER -Monitor renal functions -Hold lasix for now -Renal US r/o obstruction -Avoid nephrotoxic agents when possible -Nephrology consult (4) Elevated troponin: Hx CAD - 40% stenosis LAD. Nonischemic nuclear stress test in 2012 Troponin: 0.23. No CP, SOB. No reported recent or chronic angina symptoms. EKG: sinus rhythm, Q waves septal anterior, similar compared to EKG in 02/2018 May be elevated secondary to CKD, demand ischemia. Does not appear to be ACS at this time -Monitor Vitals -Repeat EKG in am -Will trend troponin -Echo -lipid panel in am, continue statin -aspirin -Nitro prn CP and repeat EKG for CP -Consider cardiology consult if troponin increasing (5) Asthma exacerbation: (6) Cough: CXR: Cardiomegaly with prominence of the pulmonary vasculature. Correlate clinically for evidence of mild congestive failure. No airspace consolidation or pleural effusion is identified. Suspect asthma exacerbation, bronchitis. DDX: fluid overload Pt does not appear volume overloaded at this time -Influenza swab pending -Continue Flovent -Xopenex/Atrovent nebs scheduled -Monitor (7) Paroxysmal atrial fibrillation: H/O PAF. Not on anticoagulation Current sinus rhythm -Continue amiodarone (8) CAD (coronary artery disease): Hx CAD - 40% stenosis LAD. Nonischemic nuclear stress test in 2012 Medically treated (9) Severe aortic stenosis: Has declined invasive procedures in past (10) Bladder cancer: Hx bladder CA with urostomy. Pt having dark yellow urine noted in urostomy bag -Treat for UTI as above (11) Hypothyroidism: -Continue levothyroxine (12) Chronic anemia: Hgb: 10. Baseline Hgb: 10.4 -Continue ferrous sulfate -monitor H&H (13) GERD (gastroesophageal reflux disease): -Continue PPI (14) Depression: -Continue fluoxetine DVT Prophylaxis -Heparin SQ DNR/DNI as per discussion with pt and pt's daughter Follows with Dr Voss for routine care Pt was seen and care coordinated with Dr Tobin. See addendum History of Present Illness Chief Complaint: Nausea, dark urine Primary Care Provider: Devaughn Voss Pt is 87 y/o F with PMH bladder CA with urostomy, CKD III-IV, CAD, hypothyroidism, dyslipidemia, chronic anemia, depression, h/o breast CA s/p R mastectomy, h/o thrombocytopenia, asthma, paroxysmal atrial fibrillation presented to ER from [facility] for nausea x 4 days and noted dark urine. Pt's daughter is concerned for UTI. Decreased oral intake secondary to nausea and dry heaves. She reports chronic cough sometimes white productive, however past couple of days with increased cough and today had green productive cough. Denies any known cases of flu at [facility]. Reports had flu vaccine this season. Reports chronic BLE edema worse with prolonged sitting but states recently has had decreased BLE edema. States uses walker to ambulate. Is able to ambulate to dining table and bathroom without reported SOB/CP. Denies metallic taste in mouth. Denies fever/chills, diaphoresis, hematuria, D/C, MELO, dizziness, syncope, vision changes, neck pain, CP, SOB, orthopnea, palpitations, sore throat, choking, otalgia, rhinorrhea, abdominal pain, paresthesias, weakness, extremity weakness, rashes. Allergies Allergy/AdvReac Type Severity Reaction Status Date / Time Sulfa (Sulfonamide Allergy Intermediate "SULFA Verified 03/17/19 15:17 Antibiotics) DRUGS": RASH, NAUSEA lorazepam Allergy Mild DELIRIUM Verified 03/17/19 15:17 Cipro Allergy Unknown allergy Verified 10/09/16 13:38 ciprofloxacin Allergy Unknown allergy Verified 03/17/19 15:17 scopolamine AdvReac Mild DIZZINESS Verified 03/17/19 15:17 Home Medications Home Medications Medication Instructions Recorded Confirmed Type Caltrate 600 plus D 1 tab PO QAM 02/26/18 03/17/19 History PreserVision Lutein 1 tab PO BID 02/26/18 03/17/19 History acetaminophen [Tylenol] 650 mg PO Q6 PRN MDD 3 /24 02/26/18 03/17/19 History HOURS docusate sodium 100 mg PO QAM 02/26/18 03/17/19 History ferrous sulfate 325 mg PO BID 02/26/18 03/17/19 History fluoxetine 20 mg PO QAM 02/26/18 03/17/19 History magnesium oxide 400 mg PO BID 02/26/18 03/17/19 History multivitamin [Daily Vitamin 1 tab PO QAM 02/26/18 03/17/19 History Formula] omeprazole 20 mg PO BID 02/26/18 03/17/19 History ondansetron HCl [Zofran] 4 mg PO Q4 PRN 02/26/18 03/17/19 History simvastatin 10 mg PO PM 02/26/18 03/17/19 History albuterol sulfate [Ventolin HFA] 2 puff INHALATION Q4 PRN 03/17/19 03/17/19 History amiodarone 100 mg PO QAM 03/17/19 03/17/19 History carbamide peroxide [Ear Drops Otc] 5 - 10 drp OTIC (EAR) UD PRN 03/17/19 03/17/19 History fluticasone propionate [Flovent 2 puff INHALATION BID 03/17/19 03/17/19 History HFA] furosemide 20 mg PO DAILY 03/17/19 03/17/19 History hydrocortisone 1 applic TOPICAL BID PRN 03/17/19 03/17/19 History ipratropium-albuterol 3 ml INHALATION QID PRN 03/17/19 03/17/19 History levothyroxine 175 mcg PO QAM 03/17/19 03/17/19 History Past Med/Surg History Medical History Paroxysmal atrial fibrillation (Chronic) CAD in [place] artery (Chronic) Severe aortic stenosis (Chronic) Depression (Chronic) Thrombocytopenia (Chronic) Chronic anemia (Chronic) GERD (gastroesophageal reflux disease) (Chronic) Breast CA (Chronic) Bladder cancer (Chronic) Hypothyroidism (Chronic) HLD (hyperlipidemia) (Chronic) CAD (coronary artery disease) (Chronic) CKD (chronic kidney disease), stage III (Chronic) History of left heart catheterization (LHC) (Chronic) Surgical History H/O mastectomy (Chronic) History of urostomy (Chronic) History of carpal tunnel surgery (Chronic) H/O: hysterectomy (Chronic) History of appendectomy (Chronic) H/O foot surgery (Chronic) History of esophagogastroduodenoscopy (EGD) (Chronic) H/O cystoscopy (Chronic) Family History Other Asthma Breast cancer Stroke Social History Preferred Language: Tongan Communication Ability: Effective Visual Impairment: Limited Dog Breeder Required: No Beliefs That Will Affect Care: None Current Living Situation: Snf Other Information That Helps Us Care for You: No Feels Safe at Home: Yes Safety Concerns: Feels Safe At This Time Smoking Status: Never smoker Second Hand Exposure: No ; Hx Alcohol Use: No Hx Substance Use: No Review of Systems Review of Systems: All systems reviewed & are unremarkable except as noted in HPI & below Physical Exam Physical Exam: General: no distress, WDWN Head: normocephalic, atraumatic Eyes: PERRL, EOM's intact, conjunctiva non-injected, anicteric ENT: normal inspection external ears, nose, mucous membranes mildly dry Neck: supple, trachea midline, non-tender Lungs: no respiratory distress, +scattered wheezing throughout, no rales or rhonchi CV: RRR, systolic murmur, no JVD, trace pretibial edema Abd: normal BS, soft, non-tender Ext: no cyanosis, no calf tenderness Neuro: A&O x 2, confused on time, no focal deficits noted, normal affect Skin: warm, dry Results & Data Vital Signs (Past 12 Hours) Vital Signs Temp Pulse Pulse Resp BP BP Pulse Ox 03/17/19 15:50 90 18 141/74 H 93 03/17/19 14:05 93 03/17/19 13:28 36.8 C 93 H 20 118/58 L 92 Laboratory Results Short CBC 03/17/19 Range/Units 13:58 WBC 13.82 H (4.8-10.8) K/uL Hgb 10.0 L (12.0-16.0) g/dL Hct 30.8 L (37-47) % Plt Count 162 (130-400) K/uL BMP 03/17/19 13:58 Sodium 134 L Potassium 4.3 Chloride 100 Carbon Dioxide 23 BUN 39 H Creatinine 2.37 H Glucose 115 H Calcium 8.9 Cardiac Enzymes 03/17/19 Range/Units 13:58 Troponin I 0.233 H* (0-0.045) ng/ml Liver Function 03/17/19 Range/Units 13:58 Total Bilirubin 0.4 (0.2-1) mg/dl AST 18 (15-37) U/L ALT 19 (12-78) U/L Alkaline Phosphatase 99 (45-117) U/L Albumin 2.9 L (3.4-5.0) gm/dl Diagnostic Findings CXR: IMPRESSION: 1. Cardiomegaly with prominence of the pulmonary vasculature. Correlate clinically for evidence of mild congestive failure. 2. No airspace consolidation or pleural effusion is identified. ECG Rate (beats per minute): 84 Rhythm: sinus rhythm Findings: + Q waves (septal, anterior) Change: no significant change (from EKG 02/2018) Supervising Physician Co-Signing Physician Notes Attending Addendum: care coordinated with SUNITA Vargas please refer to her notes for full details, I agree with her notes patient seen and examined, records reviewed by myself as well on exam, patient seen sitting up in bed, just had dinner, smiling, pleasant daughter at bedside, reports patient looks better tonight since last Friday able to have some dinner, no nausea, abdominal pain, back or flank pain has cough, productive of green sputum, no dyspnea no fever/chills no other symptoms VS noted and reviewed oriented x 2 , not in distress, speaks in sentences with no effort nor accessory muscle use normal rate, regular rhythm, no murmurs (+) mild rhonchi at the bases, bilaterally non distended, soft, nontender mild lower leg edema, NO erythema, warmth no neuro deficits WBC 13.8 Hg 10 Crea 2.3 CXR no pneumonia ASSESSMENT AND PLAN PROTEUS UTI IN THE SETTING OF UROSTOMY - ff up sensitivities of urine culture drawn 03/16/19 ff up blood cultures - Ceftri IV started ACUTE RENAL FAILURE ON CKD 3-4 - baseline 1.7, now 2.3 - likely pre renal from poor oral intake - given 500cc IV NSS at the ER - will hold off on additional IV fluids given history of severe aortic stenosis, BL lower leg edema - nausea resolved, encouraged patient to drink more fluids - renal US ordered Radon Inspector consulted POSSIBLE ACUTE BRONCHITIS - CXR: no pneumonia - rhonchi noted - continue nebs ff up sputum culture MILD TROPONIN ELEVATION - no chest pain, or cardiac symptoms - EKG no signs of acute ischemia - initial trop 0.22, ff up serial troponins echo ordered - likely from CKD other diagnoses and plan of care as per SUNITA Tobin MD
[2019-03-17] MEDS ORDERED: cefTRIAXone SODIUM 1,000 MG in DEXTROSE 5% 50 ML IV STA (16:11)
--- NOTE | 2019-03-17 16:17 | XRay Report ---
TWO VIEW CHEST CLINICAL HISTORY: Productive cough. FINDINGS: AP and lateral chest radiographs are compared to study dated 03/06/2018. The heart is enlar ged noting atherosclerotic calcification of the thoracic aorta. There is prominence of the pulmonary vasculature. There is bibasilar scarring/atelectasis. No airspace consolidation is identified. There is no pleural effusion or pneumothorax. The skeletal structures are osteopenic. The bony thorax appea rs intact. Surgical clips are noted in the right axilla. IMPRESSION: 1. Cardiomegaly with prominence of the pulmonary vasculature. Correlate clinically for evidence of mi ld congestive failure. 2. No airspace consolidation or pleural effusion is identified. Electronically signed by: Richard Hills M.D. 03/17/2019 4:15 PM
[2019-03-17 16:21] LABS: Appearance Urine Clear (Clear); Bacteria Urine Automated 1+ (Negative); Bilirubin Urine Negative (Negative); Blood Urine 1+ (Negative); Color Urine Yellow; Epithelial Cell Urine Auto >30 /lpf (0-5); Glucose Urine UA Negative (Negative); Ketones Urine Negative (Negative); Leukocyte Esterase Urine 1+ (Negative); Nitrite Urine Negative (Negative); Protein Urine 1+ (Negative); RBC Urine Automated 0-4 /hpf (0-4); Specific Gravity Urine 1.012 (1.000-1.030); Urobilinogen Urine Negative (Negative)
[2019-03-17 16:38] LABS: Renal Epithelial Cells Urine 0-5 /lpf (0-5)
[2019-03-17] MEDS ORDERED: cefTRIAXone SODIUM 2,000 MG in DEXTROSE 5% 50 ML IV SCH (17:00)
[2019-03-17] MEDS ORDERED: cefTRIAXone SODIUM 2000MG/70ML D5W IV ONE (17:15)
--- NOTE | 2019-03-17 17:20 | Emergency Department Note ---
Entered by Josue Neal acting as a scribe for History of Present Illness General Chief complaint: Urinary Symptoms Stated complaint: URINARY SYMPTOMS Time Seen by Provider: 03/17/19 13:35 Source: patient and family History of Present Illness Provider complaint: Urinary symptoms Onset (ago): day(s) 5 Location: abdomen Severity: similar to prior episodes Pain Consistency: + constant Relieved By: + medication Associated symptoms: + loss of appetite and + nausea/vomiting (No vomiting); no fever/chills The patient is an 88 year old female w/ PMHx of bladder cancer with urostomy, breast cancer s/p right mastectomy, CKD III, CAD, hypothyroidism, HLD, chronic anemia, thrombocytopenia, asthma, and depression who presents to the ED w/ CC of constant urinary symptoms that started about 5 days ago. Per the patient's daughter at bedside, she noticed that the patient had very dark urine in her urostomy bag 5 days ago. With the discolored urine, the patient has been constantly nauseous with associated loss of appetite but has not vomited. The patient has been receiving Zofran while at the [facility], which has helped relieve her nausea. The daughter states that the patient has presented with similar symptoms in the past when she has an infection and has needed h ospitalization. The patient had cultures done yesterday, however only the preliminary results are back. The patient has some lower extremity swelling but notes this is chronic and they look relatively good compared to her baseline. The patient is not on any antibiotics at this time. The patient denies any abdominal pain as well as any history of kidney stones. Home Medications Home Medications Medication Instructions Recorded Confirmed Type Caltrate 600 plus D 1 tab PO QAM 02/26/18 03/17/19 History PreserVision Lutein 1 tab PO BID 02/26/18 03/17/19 History acetaminophen [Tylenol] 650 mg PO Q6 PRN MDD 3 GRAMS/24 02/26/18 03/17/19 History HOURS docusate sodium 100 mg PO QAM 02/26/18 03/17/19 History ferrous sulfate 325 mg PO BID 02/26/18 03/17/19 History fluoxetine 20 mg PO QAM 02/26/18 03/17/19 History magnesium oxide 400 mg PO BID 02/26/18 03/17/19 History multivitamin [Daily Vitamin 1 tab PO QAM 02/26/18 03/17/19 History Formula] omeprazole 20 mg PO BID 02/26/18 03/17/19 History ondansetron HCl [Zofran] 4 mg PO Q4 PRN 02/26/18 03/17/19 History simvastatin 10 mg PO PM 02/26/18 03/17/19 History albuterol sulfate [Ventolin HFA] 2 puff INHALATION Q4 PRN 03/17/19 03/17/19 History amiodarone 100 mg PO QAM 03/17/19 03/17/19 History carbamide peroxide [Ear Drops Otc] 5 - 10 drp OTIC (EAR) UD PRN 03/17/19 03/17/19 History fluticasone propionate [Flovent 2 puff INHALATION BID 03/17/19 03/17/19 History HFA] furosemide 20 mg PO DAILY 03/17/19 03/17/19 History hydrocortisone 1 applic TOPICAL BID PRN 03/17/19 03/17/19 History ipratropium-albuterol 3 ml INHALATION QID PRN 03/17/19 03/17/19 History levothyroxine 175 mcg PO QAM 03/17/19 03/17/19 History Allergies Allergy/AdvReac Type Severity Reaction Status Date / Time Sulfa (Sulfonamide Allergy Intermediate "SULFA Verified 03/17/19 15:17 Antibiotics) DRUGS": RASH, NAUSEA lorazepam Allergy Mild DELIRIUM Verified 03/17/19 15:17 Cipro Allergy Unknown allergy Verified 10/09/16 13:38 ciprofloxacin Allergy Unknown allergy Verified 03/17/19 15:17 scopolamine AdvReac Mild DIZZINESS Verified 03/17/19 15:17 Past Med/Surg History Medical History Paroxysmal atrial fibrillation (Chronic) CAD in [place] artery (Chronic) Severe aortic stenosis (Chronic) Depression (Chronic) Thrombocytopenia (Chronic) Chronic anemia (Chronic) GERD (gastroesophageal reflux disease) (Chronic) Breast CA (Chronic) Bladder cancer (Chronic) Hypothyroidism (Chronic) HLD (hyperlipidemia) (Chronic) CAD (coronary artery disease) (Chronic) CKD (chronic kidney disease), stage III (Chronic) History of left heart catheterization (LHC) (Chronic) Surgical History H/O mastectomy (Chronic) History of urostomy (Chronic) History of carpal tunnel surgery (Chronic) H/O: hysterectomy (Chronic) History of appendectomy (Chronic) H/O foot surgery (Chronic) History of esophagogastroduodenoscopy (EGD) (Chronic) H/O cystoscopy (Chronic) Family History Other Asthma Breast cancer Stroke Social History Preferred Language: Maltese Communication Ability: Effective Visual Impairment: Limited [place] [employer] Gatherer Required: No Beliefs That Will Affect Care: Christian Christian Beliefs: Mormonism/Denominational Current Living Situation: [facility] Feels Safe at Home: Yes Smoking Status: Former smoker Second Hand Exposure: No ; Hx Alcohol Use: No Hx Substance Use: No Review of Systems See HPI for pertinent positives & negatives. and A total of 10 systems reviewed and were otherwise negative Physical Exam Vital Signs Vital Signs - 24 hr 03/17/19 13:28 03/17/19 14:05 03/17/19 15:50 Temperature 36.8 C Temperature Source Oral Sepsis Recent Fever Within 48 Hours No Sepsis New/Unexplained Change in Mental Status No Sepsis Action Taken by Nursing No Action Required Pulse Rate 93 H Pulse Rate [Apical] 90 Respiratory Rate 20 18 Respiratory Depth Normal Blood Pressure 118/58 L Blood Pressure [Left Arm] 141/74 H Blood Pressure Mean 78 Blood Pressure Mean [Left Arm] 96 Pulse Oximetry 92 93 93 Oxygen Delivery Method Room Air Room Air Room Air 03/17/19 17:06 Temperature Temperature Source Sepsis Recent Fever Within 48 Hours Sepsis New/Unexplained Change in Mental Status Sepsis Action Taken by Nursing Pulse Rate Pulse Rate [Apical] 91 H Respiratory Rate 18 Respiratory Depth Blood Pressure Blood Pressure [Left Arm] 149/57 H Blood Pressure Mean Blood Pressure Mean [Left Arm] 87 Pulse Oximetry 94 Oxygen Delivery Method Room Air GENERAL: Wearing glasses, well appearing, well nourished, NAD, non-toxic. EYE EXAM: Normal conjunctiva. PERRL, no anisocoria and EOM's grossly intact w/o pain. OROPHARYNX: Moist mucus membranes. Grossly normal dentition. NECK: Supple, no nuchal rigidity, no adenopathy, non-tender. No signs of meningismus. LUNGS: Clear to auscultation. Normal chest wall mechanics. HEART: NSR, systolic ejection murmur present. ABDOMEN: Abdomen soft, non-tender, normo-active bowel sounds, no masses, no rebound or guarding. Urostomy in the RLQ with clear fluid noted. BACK: No CVA TTP. SKIN: No rashes and no bruising. UPPER EXTREMITIES: Upper extremities are grossly normal. LOWER EXTREMITIES: 1+ bilateral symmetric LE edema with no redness. No calf pain. NEURO EXAM: A&O x3, cranial nerves II-XII grossly intact, normal speech, moves all 4 extremities on command w/o issue. Course 1339: Past medical records reviewed. The patient was evaluated in room B12B, and a complete history and physical examination were performed. 1520: I reevaluated the patient and she is resting comfortably. She reports no active chest pain at this time. She also mentioned that she is unable to take Aspirin due to her kidney disease. While in the room I discussed the treatment plan with the patient and she is agreeable. 1535: I spoke to Nya Dumont PAC under Dr. Mahad Knott about the patient's case. They are going to accept the patient for further evaluation. Consultations Consultation #1: I spoke to Nya Dumont PAC under Dr. Mahad Knott about the patient's case. They are going to accept the patient for further evaluation. Time: 15:35 Administered Medications Discontinued Medications Sodium Chloride (Nss) 500 mls @ 999 mls/hr IV .Q31M [facility] Stop: 03/17/19 14:15 Last Infusion: 03/17/19 15:16 Dose: 0 mls/hr Documented by: [id number] Admin: 03/17/19 14:08 Dose: 999 mls/hr Documented by: [id number] Medical Decision Making Medical Records Attestation: I reviewed the patient's medical records. Home Medications Current Medication List: was personally reviewed by me Laboratory Data Attestation: I reviewed the patient's lab results. Result diagrams: 03/17/19 13:58 03/17/19 13:58 Lab Results 03/17/19 03/17/19 03/17/19 Range/Units 13:58 13:58 15:38 WBC 13.82 H (4.8-10.8) K/uL RBC 3.50 L (4.2-5.4) M/uL Hgb 10.0 L (12.0-16.0) g/dL Hct 30.8 L (37-47) % MCV 88.0 (80-100) fL MCH 28.6 (25-34) pg MCHC 32.5 (32-36) g/dL RDW Std Deviation 54.0 H (36.4-46.3) fL RDW Coeff of Sunita 16.6 H (11.5-14.5) % Plt Count 162 (130-400) K/uL MPV 11.9 H (7.4-10.4) fL Immature Gran % (Auto) 0.7 % Neut % (Auto) 71.1 % Lymph % (Auto) 12.1 % [place] % (Auto) 15.9 % Eos % (Auto) 0.1 % Baso % (Auto) 0.1 % Immature Gran # (Auto) 0.09 H (0.00-0.02) K/uL Neut # (Auto) 9.84 H (1.4-6.5) K/uL Lymph # (Auto) 1.67 (1.2-3.4) K/uL [place] # (Auto) 2.20 H (0.11-0.59) K/uL Eos # (Auto) 0.01 (0-0.5) K/uL Baso # (Auto) 0.01 (0-0.2) K/uL Sodium 134 L (136-145) mmol/L Potassium 4.3 (3.5-5.1) mmol/L Chloride 100 (98-107) mmol/L Carbon Dioxide 23 (21-32) mmol/L Anion Gap 10.0 (3-11) BUN 39 H (7-18) mg/dl Creatinine 2.37 H (0.6-1.2) mg/dl Est Cr Clr Drug Dosing 14.0 ml/min Est GFR ( Amer) 20.7 Est GFR (Non-Af Amer) 17.8 BUN/Creatinine Ratio 16.3 (10-20) Glucose 115 H (70-99) mg/dl Calcium 8.9 (8.5-10.1) mg/dl Total Bilirubin 0.4 (0.2-1) mg/dl AST 18 (15-37) U/L ALT 19 (12-78) U/L Alkaline Phosphatase 99 (45-117) U/L Troponin I 0.233 H* (0-0.045) ng/ml Total Protein 7.8 (6.4-8.2) gm/dl Albumin 2.9 L (3.4-5.0) gm/dl Globulin 4.9 H (2.5-4.0) gm/dl Albumin/Globulin Ratio 0.6 L (0.9-2) Lipase 98 (73-393) U/L Urine Color Yellow Urine Appearance Clear (Clear) Urine pH 7.0 (4.5-7.5) Ur Specific [place] 1.012 (1.000-1.030) Urine Protein 1+ H (Negative) Urine Glucose (UA) Negative (Negative) Urine Ketones Negative (Negative) Urine Blood 1+ H (Negative) Urine Nitrite Negative (Negative) Urine Bilirubin Negative (Negative) Urine Urobilinogen Negative (Negative) Ur Leukocyte Esterase 1+ H (Negative) Urine WBC (Auto) 10-30 H (0-5) /hpf Urine RBC (Auto) 0-4 (0-4) /hpf U Hyaline Cast (Auto) 1-5 (0-5) /lpf U Epithel Cells (Auto) >30 H (0-5) /lpf Urine Bacteria (Auto) 1+ H (Negative) Ur Renal Epithelial Cell 0-5 (0-5) /lpf Imaging Data Radiologist's Impression: Radiology results as stated below per my review in the radiologist's interpretation: TWO VIEW CHEST CLINICAL HISTORY: Productive cough. FINDINGS: AP and lateral chest radiographs are compared to study dated 03/06/2018. The heart is enlarged noting atherosclerotic calcification of the thoracic aorta. There is prominence of the pulmonary vasculature. There is bibasilar scarring/atelectasis. No airspace consolidation is identified. There is no pleural effusion or pneumothorax. The skeletal structures are osteopenic. The bony thorax appears intact. Surgical clips are noted in the right axilla. IMPRESSION: 1. Cardiomegaly with prominence of the pulmonary vasculature. Correlate clinically for evidence of mild congestive failure. 2. No airspace consolidation or pleural effusion is identified. Electronically signed by: Richard Hills M.D. 03/17/2019 4:15 PM Dictated: 03/17/19 1614 Transcribed: 03/17/19 1614 ECG Data Attestation: I personally reviewed and interpreted this ECG as follows: Indication: + weakness Rate (beats per minute): 84 Rhythm: + normal sinus ECG Korbel: + Normal ECG ST segments: no ST depression and no ST elevation ECG Findings: + Q waves (Anteriorly and lead 3) and + Other (Normal intervals) Comparison ECG Date: from (03/02/18) Change: the following changes noted (Rate has improved. Morphology is unchanged. ) Blood Pressure Blood Pressure Findings: Elevated blood pressure Blood Pressure Disposition: further management by hospitalist SAGE Narrative The patient is an 88 year old female w/ PMHx of bladder cancer with urostomy, breast cancer s/p right mastectomy, CKD III, CAD, hypothyroidism, HLD, chronic anemia, thrombocytopenia, asthma, and depression who presents to the ED w/ CC of constant urinary symptoms that started about 5 days ago. Differential Diagnosis includes but is not limited to dehydration, stroke, anemia, hypoglycemia, hyponatremia, hypernatremia, urinary tract infection, pneumonia, bronchitis, sepsis, gastroenteritis, additional abdominal pathology, metabolic abnormalities and infections. Patient was seen and evaluated the bedside. The patient had been brought in at the behest of the patient's daughter due to some generalized weakness, nausea, as well as some dark urine. The patient did have a recent urinalysis which I reviewed and shows questionable infection but has many epithelial cells and is negative for nitrites. They were pending a urine culture prior to any antibiotics. Patient apparently had been given Zofran prior to arrival and the patient feels much improved. The patient did a blood work completed along with EKG troponin. Patient's blood work does show a mild white count of 13. The patient's hemoglobin is chronic and stable at 10. The patient's blood work shows mild hyponatremia. The patient does have mild kidney dysfunction but it is not doubled compared to prior. The patient's baseline creatinine 1.7 today's 2.3. Patient was given IV fluids. Troponin is detectable 0.23. The patient denies any active chest pains or shortness of breath. The patient had complained of a productive cough so chest x-ray was ordered. This does not show any evidence of consolidation. Patient also not complain of any shortness of breath and although the patient does have some lower extremity swelling this is been chronic. The patient does not take an aspirin based on her kidney dysfunction. We will hold the aspirin for the time being as the patient does not have any active chest pains or shortness of breath and the patient does not have any EKG changes. However, I did discuss with the patient that if she does develop any the symptoms she should take the aspirin and we discussed further treatment and management including trending her cardiac enzymes as the patient's most recent troponin and I can review from 2017 was undetectable. The patient's urinalysis today does show 1+ leuks WBCs and bacteria but there are many epithelials. Will defer to the inpatient team at this time on antibiotics. Patient was admitted to the medicine service. Impression & Plan Weakness, Cough, Elevated troponin, Acute dehydration, GERA (acute kidney injury) Discharge Plan Visit Data Chief Complaint: Urinary Symptoms Stated Complaint: URINARY SYMPTOMS ED Provider: Dex Mauricio Discharge Problem: Weakness, Cough, Elevated troponin, Acute dehydration, GERA (acute kidney injury) Patient Disposition: Being Evaluated by Hospitalist Forms Stand Alone Forms: My [facility] Prescriptions Prescriptions: No Action multivitamin [Daily Vitamin Formula] Tablet 1 tab PO QAM RF: 0 acetaminophen [Tylenol] 325 mg Tablet 650 mg PO Q6 MDD 3 GRAMS/24 HOURS PRN (Reason: Fever Or Pain) RF: 0 ondansetron HCl [Zofran] 4 mg Tablet 4 mg PO Q4 PRN (Reason: NAUSEA/VOMITING) RF: 0 simvastatin 10 mg Tablet 10 mg PO PM RF: 0 ferrous sulfate 325 mg (65 mg iron) Tablet 325 mg PO BID RF: 0 docusate sodium 100 mg Capsule 100 mg PO QAM RF: 0 omeprazole 20 mg Capsule,Delayed Release(Dr/Ec) 20 mg PO BID RF: 0 fluoxetine 20 mg Capsule 20 mg PO QAM RF: 0 PreserVision Lutein 226 mg-200 unit -5 mg-0.8 mg Capsule 1 tab PO BID RF: 0 Caltrate 600 plus D 600 mg (1,500 mg)-800 unit Tablet,Chewable 1 tab PO QAM RF: 0 magnesium oxide 400 mg magnesium Tablet 400 mg PO BID RF: 0 levothyroxine 175 mcg tablet 175 mcg PO QAM RF: 0 ipratropium-albuterol 0.5 mg-3 mg(2.5 mg base)/3 mL solution for nebulization 3 ml inhalation QID PRN (Reason: Shortness Of Breath Or Wheezing) RF: 0 amiodarone 200 mg tablet 100 mg PO QAM RF: 0 carbamide peroxide [Ear Drops Otc] 6.5 % Drops 5 - 10 drp OTIC (EAR) UD PRN (Reason: prn) RF: 0 albuterol sulfate [Ventolin HFA] 90 mcg/actuation HFA aerosol inhaler 2 puff inhalation Q4 PRN (Reason: Shortness Of Breath Or Wheezing) RF: 0 Flovent HFA 110 mcg/actuation HFA aerosol inhaler 2 puff inhalation BID RF: 0 hydrocortisone 1 % Cream 1 applic TOPICAL BID PRN (Reason: Rash) RF: 0 furosemide 20 mg Tablet 20 mg PO DAILY RF: 0 Referrals Referrals: Devaughn Voss [Primary Care Provider] - The scribe's documentation has been prepared under my direction and personally reviewed by me in its entirety. I confirm that the note above accurately reflects all work, treatment, procedures, and medical decision making performed by me.
[2019-03-17 17:43] LABS: Influenza A virus by PCR Neg for Influ A (Neg); Influenza B virus by PCR Neg for Influ B (Neg)
[2019-03-17] MEDS ORDERED: ACETAMINOPHEN 325 MG TAB PO PRN (18:16)
[2019-03-17] MEDS ORDERED: NITROGLYCERIN SL 0.4 MG/TAB TAB SL PRN (18:16)
[2019-03-17] MEDS: LEVALBUTEROL HCL 0.63 MG/3 ML NEB NEB SCH (19:17)
[2019-03-17] MEDS: FERROUS SULFATE 325 MG TAB PO SCH (20:01)
[2019-03-17] MEDS: SIMVASTATIN 10 MG TAB PO SCH (20:02)
[2019-03-17] MEDS: PANTOprazole 40 MG TAB PO SCH (20:02)
[2019-03-17] MEDS: MAGNESIUM OXIDE 400 MG TAB PO SCH (20:03)
[2019-03-17] MEDS: CEROVITE ADV FORMULA TAB PO SCH (20:03)
[2019-03-17] MEDS: FLUTICASONE HFA 110MCG INHALER INH SCH (20:06)
[2019-03-17] MEDS: HEPARIN SOD 5,000 UNIT/0.5 ML VIAL SQ SCH (20:06)
[2019-03-17] MEDS ORDERED: ALUMINUM/MAGNESIUM SUSP 30 ML UDC PO PRN (20:43)
--- NOTE | 2019-03-17 20:51 | Ultrasound Report ---
ULTRASOUND KIDNEYS AND BLADDER CLINICAL HISTORY: Acute renal insufficiency. COMPARISON STUDY: Abdominal CT dated 02/26/2018. TECHNIQUE: Real-time, grayscale, and color flow sonography of the kidneys and bladder is performed. I mages are reviewed in the transverse and longitudinal planes. FINDINGS: Kidneys: The kidneys demonstrate cortical atrophy, left greater than right. The right kidney measures 10.9 x 3.2 x 3.6 cm and the left kidney measures 8.1 x 3.9 x 3.7 cm. There is no hydronephrosis. No shadowing renal calculi are identified. There is no sonographic evidence of contour deforming renal mass lesion. No perinephric fluid is identified. Bladder: The bladder is surgically absent. IMPRESSION: 1. The kidneys demonstrate cortical atrophy and are without hydronephrosis. 2. The bladder is surgically absent Electronically signed by: Richard Hills M.D. 03/17/2019 8:50 PM
[2019-03-18] MEDS: LEVALBUTEROL HCL 0.63 MG/3 ML NEB NEB SCH ×4 (00:41→19:07)
[2019-03-18] MEDS: LEVOTHYROXINE SODIUM 175 MCG TABLET PO SCH (05:58)
[2019-03-18 07:32] LABS: Basophils # (auto) 0.02 K/uL (0-0.2); Basophils % (auto) 0.1 %; Hemoglobin 9.8 g/dL (12.0-16.0); Immature Granulocytes # (auto) 0.17 K/uL (0.00-0.02); Lymphocytes # (auto) 2.59 K/uL (1.2-3.4); Lymphocytes % (auto) 14.6 %; Mean Corpuscular Hemoglobin 29.6 pg (25-34); Mean Corpuscular Hgb Conc 33.8 g/dL (32-36); Mean Corpuscular Volume 87.6 fL (80-100); Mean Platelet Volume 11.6 fL (7.4-10.4); Monocytes # (auto) 2.66 K/uL (0.11-0.59); Neutrophils # (auto) 12.25 K/uL (1.4-6.5); Neutrophils % (auto) 69.3 %; Platelet Count 186 K/uL (130-400); RDW Coefficient of Variation 16.6 % (11.5-14.5); RDW Standard Deviation 53.1 fL (36.4-46.3); Red Blood Count 3.31 M/uL (4.2-5.4); White Blood Count 17.69 K/uL (4.8-10.8)
[2019-03-18 08:06] LABS: Creatinine Clr Calc Pharmacy 15.5 ml/min; Est GFR (African American) 23.4; Est GFR (Non-African American) 20.2; Potassium 3.9 mmol/L (3.5-5.1)
[2019-03-18] MEDS: PANTOprazole 40 MG TAB PO SCH ×2 (09:18→20:27)
[2019-03-18] MEDS: FERROUS SULFATE 325 MG TAB PO SCH ×2 (09:18→20:28)
[2019-03-18] MEDS: CEROVITE ADV FORMULA TAB PO SCH ×2 (09:18→20:29)
[2019-03-18] MEDS: MAGNESIUM OXIDE 400 MG TAB PO SCH ×2 (09:19→20:28)
[2019-03-18] MEDS: ASPIRIN 81 MG ECTAB PO SCH (09:19)
[2019-03-18] MEDS: DOCUSATE SODIUM 100 MG CAP PO SCH (09:19)
[2019-03-18] MEDS: FLUTICASONE HFA 110MCG INHALER INH SCH ×2 (09:19→20:29)
[2019-03-18] MEDS: MULTIVITAMIN TAB PO SCH (09:19)
[2019-03-18] MEDS: CALCIUM 600MG + VIT D 400 IU TAB PO SCH (09:20)
[2019-03-18] MEDS: FLUOXETINE HCL 20 MG CAP PO SCH (09:20)
[2019-03-18] MEDS: AMIODARONE 200 MG TAB PO SCH (09:20)
[2019-03-18] MEDS: HEPARIN SOD 5,000 UNIT/0.5 ML VIAL SQ SCH ×2 (09:21→20:30)
[2019-03-18] MEDS ORDERED: AMIODARONE 200 MG TAB PO ONE (12:00)
--- NOTE | 2019-03-18 13:02 | Cardiology Consultation ---
Date of Consultation March 18, 2019 Assessment & Plan (1) Paroxysmal atrial fibrillation: (2) Elevated troponin: (3) Aortic stenosis: (4) UTI (urinary tract infection): (5) GERA (acute kidney injury): (6) CAD in [place] artery: Patient spontaneously converted to normal sinus rhythm/sinus tachycardia. Recommend increasing amiodarone to 200 mg twice daily. I suspect recurrent atrial fibrillation precipitated by acute urinary tract infection and dehydration. Encourage patient to improve hydration orally as tolerated. Antibiotics per internal medicine. In regard to anticoagulation, patient deemed to be a poor candidate in the past due to thrombocytopenia, chronic anemia, and fall risk. Per review of most recent hospitalization notes 09/2018, it appears she declined warfarin at that time. I will readdress during hospitalization. Continue telemetry monitoring. Replace electrolytes as indicated. Mildly elevated troponin secondary to demand ischemia in the setting of atrial fibrillation with rapid ventricular response and ARF superimposed on chronic kidney disease stage IV. History of Present Illness Reason for Consultation: Paroxysmal atrial fibrillation with rapid ventricular response Requesting Physician: Dr. Garza Attending Physician: Isaac Garza MD History of Present Illness 87-year-old female admitted from alf with urinary tract infection. Patient complains of nausea without vomiting. Reports poor appetite over the past few days. Elevated creatinine (2.3, baseline 1.9) noted on admission. Patient denies chest pain, shortness of breath, or palpitations. Carries history of severe aortic stenosis and paroxysmal atrial fibrillation. Most recently evaluated in spring 2018 at [facility]. Low-dose amiodarone added for rhythm control. Appears warfarin was considered during hospitalization however ultimately declined by the patient. Currently she is resting comfortably. Review of telemetry reveals brief salvos of atrial fibrillation with rapid ventricular response and heart rates as high as 150 bpm recorded. Currently sinus rhythm and sinus tachycardia noted. Blood pressure controlled. Patient denies orthopnea, PND, or lower extremity edema. No recent lightheadedness, dizziness, syncope, or near syncope. Denies falls or injuries. She is a resident of a alf. Allergies Allergy/AdvReac Type Severity Reaction Status Date / Time Sulfa (Sulfonamide Allergy Intermediate "SULFA Verified 03/17/19 15:17 Antibiotics) DRUGS": RASH, NAUSEA lorazepam Allergy Mild DELIRIUM Verified 03/17/19 15:17 Cipro Allergy Unknown allergy Verified 10/09/16 13:38 ciprofloxacin Allergy Unknown allergy Verified 03/17/19 15:17 scopolamine AdvReac Mild DIZZINESS Verified 03/17/19 15:17 Home Medications Home Medications Medication Instructions Recorded Confirmed Type Caltrate 600 plus D 1 tab PO QAM 02/26/18 03/17/19 History PreserVision Lutein 1 tab PO BID 02/26/18 03/17/19 History acetaminophen [Tylenol] 650 mg PO Q6 PRN MDD 3 /24 02/26/18 03/17/19 History HOURS docusate sodium 100 mg PO QAM 02/26/18 03/17/19 History ferrous sulfate 325 mg PO BID 02/26/18 03/17/19 History fluoxetine 20 mg PO QAM 02/26/18 03/17/19 History magnesium oxide 400 mg PO BID 02/26/18 03/17/19 History multivitamin [Daily Vitamin 1 tab PO QAM 02/26/18 03/17/19 History Formula] omeprazole 20 mg PO BID 02/26/18 03/17/19 History ondansetron HCl [Zofran] 4 mg PO Q4 PRN 02/26/18 03/17/19 History simvastatin 10 mg PO PM 02/26/18 03/17/19 History albuterol sulfate [Ventolin HFA] 2 puff INHALATION Q4 PRN 03/17/19 03/17/19 History amiodarone 100 mg PO QAM 03/17/19 03/17/19 History carbamide peroxide [Ear Drops Otc] 5 - 10 drp OTIC (EAR) UD PRN 03/17/19 03/17/19 History fluticasone propionate [Flovent 2 puff INHALATION BID 03/17/19 03/17/19 History HFA] furosemide 20 mg PO DAILY 03/17/19 03/17/19 History hydrocortisone 1 applic TOPICAL BID PRN 03/17/19 03/17/19 History ipratropium-albuterol 3 ml INHALATION QID PRN 03/17/19 03/17/19 History levothyroxine 175 mcg PO QAM 03/17/19 03/17/19 History Patient History Medical History Paroxysmal atrial fibrillation (Chronic) CAD in [place] artery (Chronic) Severe aortic stenosis (Chronic) Depression (Chronic) Thrombocytopenia (Chronic) Chronic anemia (Chronic) GERD (gastroesophageal reflux disease) (Chronic) Breast CA (Chronic) Bladder cancer (Chronic) Hypothyroidism (Chronic) HLD (hyperlipidemia) (Chronic) CAD (coronary artery disease) (Chronic) History of left heart catheterization (LHC) (Chronic) CKD (chronic kidney disease) stage 4, GFR 15-29 ml/min CKD (chronic kidney disease), stage III (Chronic) Surgical History H/O mastectomy (Chronic) History of urostomy (Chronic) History of carpal tunnel surgery (Chronic) H/O: hysterectomy (Chronic) History of appendectomy (Chronic) H/O foot surgery (Chronic) History of esophagogastroduodenoscopy (EGD) (Chronic) H/O cystoscopy (Chronic) Family History Other Asthma Breast cancer Stroke Social History Preferred Language: [place] Communication Ability: Effective Visual Impairment: Limited Online Journalist Required: No Beliefs That Will Affect Care: None Current Living Situation: Intermediate Other Information That Helps Us Care for You: No Feels Safe at Home: Yes Safety Concerns: Feels Safe At This Time Smoking Status: Never smoker Second Hand Exposure: No ; Hx Alcohol Use: No Hx Substance Use: No Review of Systems Review of Systems: All systems reviewed & are unremarkable except as noted in HPI & below Physical Exam Physical Exam: General: NAD, AAO x3, well nourished. HEENT: Normocephalic. Atraumatic. Conjunctiva pink, no scleral icterus. Neck: No carotid bruits, the carotid upstrokes are brisk. No JVD. No HJR Heart: Regular normal S-1 and diminished S2. 3/6 systolic ejection murmur heard best at the right second intercostal space. PMI is not displaced. No RV heave. Lungs: Clear bilateral without rales , rhonchi, or wheeze. Abdomen: Normal bowel sounds. Soft. Nontender. No masses or organomegaly. No abdominal bruits. Extremities: No clubbing, cyanosis, or edema. Pulses: radial=2/4, Dorsalis pedis =2/4, posterior tibial=2/4. Neuro: Cranial nerves grossly intact. No focal motor deficit. Results & Data Vital Signs (Past 12 Hours) Vital Signs Temp Pulse Pulse Pulse Resp BP Pulse Ox 03/18/19 08:14 100 H 03/18/19 07:17 36.7 C 94 H 16 137/71 92 03/18/19 07:01 96 H 18 92 03/18/19 03:46 36.8 C 90 18 130/70 92 (1) Aortic stenosis Cardiac valve disease etiology: nonrheumatic Qualified Code(s): I35.0 - Nonrheumatic aortic (valve) stenosis
--- NOTE | 2019-03-18 17:24 | Hospitalist Progress Note ---
Date of Service March 18, 2019 Assessment & Plan (1) UTI (urinary tract infection): Present on admission with nausea and dark urine in urostomy bag. Preliminary urine culture from 03/16/19 +proteus that is pansensitive Repeat urine cx on admission grew gram negative baccilli Continue IV Ceftriaxone Blood cx pending Follow up urine sensitivity (2) Nausea: C/O nausea and decreased oral intake past couple of day. No abdominal pain. Denies diarrhea, constipation, fever/chills. 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 Case discussed with Nephrology recommended to continue current management Continue to hold lasix Avoid nephrotoxic agents when possible Monitor BMP (4) Elevated troponin: Demand ischemia due to elevated creatinine Hx CAD - 40% stenosis LAD. Nonischemic nuclear stress test in 2012 Troponin: 0.23 on admission, then trending down EKG showed no acute ischemic changes ECHO showed no wall motion abnormality with EF 60-65% Continue Aspirin and Statin (5) Paroxysmal atrial fibrillation: Had a brief episode of Afib this morning Convert back spontaneous to Normal sinus [facility] Cardiology on board increased Amiodarone from 100mg to 200mg BID Not on anticoagulation due to hx of thrombocytopenia and anemia Continue monitor (6) CAD (coronary artery disease): Hx CAD - 40% stenosis LAD. Nonischemic nuclear stress test in 2012 Continue aspirin and statin (7) Severe aortic stenosis: Has declined invasive procedures in past (8) Bladder cancer: Hx bladder CA with urostomy. stable (9) Hypothyroidism: Continue levothyroxine (10) Chronic anemia: Hgb: 9.8 today. Baseline Hgb: 10.4 Continue ferrous sulfate Monitor CBc Stable (11) GERD (gastroesophageal reflux disease): Continue PPI (12) Depression: Continue fluoxetine DVT Prophylaxis Heparin SQ CODE STATUS DNR/DNI Subjective Pt was seen and examined. Lying in bed with no distress Pt said that she feels fine. She is very anxious to go home She had a brief episode of Afib this morning that lasted for a few minutes Denies any chest pain, palpitation, dizziness and SOB Physical Exam Physical Exam: General- No acute distress Head- atraumatic Eyes- PERRL, EOMI, ENT- oropharynx clear Neck- supple, no JVD Lungs- diminished BS Heart- regular rhythm; +systolic murmur Abdomen- normal bowel sounds, soft, nontender Extremities- no calf tenderness Neuro- alert, oriented x 3; PERRL, EOMI; no facial palsy; no dysarthria Skin- warm & dry Results & Data Vital Signs (Past 12 Hours) Vital Signs Temp Pulse Pulse Pulse Resp BP Pulse Ox 03/18/19 15:31 36.8 C 96 H 22 103/67 92 03/18/19 13:31 78 18 93 03/18/19 08:14 100 H 03/18/19 07:17 36.7 C 94 H 16 137/71 92 03/18/19 07:01 96 H 18 92
--- NOTE | 2019-03-18 17:31 | Nephrology Consultation ---
Date of Consultation March 18, 2019 Assessment & Plan (1) Acute kidney injury superimposed on CKD: mild prerenal GERA on CKD4, nonoliguric and improving few baseline data found but working baseline creatinine is 1.7-2.0. she is responding well to very gentle FR. chemistries acceptable; urine sediment chronically inflamed; renal u/s reassuring -agree w/ cardiology recommendation to push po fluids for now; would not give further IV -cont to avoid nephrotoxins -strict I/O -daily bmp Present on Admission?: Yes (2) Chronic anemia: normocytic chronic anemia w/ baseline hgb usually 10s; monitor at least q48 to start; no intervention indicated currently Present on Admission?: Yes (3) Paroxysmal atrial fibrillation: AF w/ RVR initially w/ spontaneous conversion to sinus tach > cardiology following; mild congestive failure on XR and mild OL on exam>give volume cautiously Present on Admission?: Yes (4) UTI (urinary tract infection): clinically improving (in terms of urine appearance grossly) w/ hydration and IV abtx; WBC on uptrend notably and cough noted as well; monitor for non uti sources of infection here as nearly any urine cx drawn from urostomy will be positive; hx of recurrent proteus infections Present on Admission?: Yes History of Present Illness Reason for Consultation: GERA on CKD Requesting Physician: Dr Tobin Attending Physician: Isaac Garza MD History of Present Illness 88 y/o F [place] resident whom I'm asked to see for GERA on advanced CKD after she was admitted yesterday for same in the setting of concern for UTI d/t dark urine output; also had more productive cough which has recently increased. PMH includes bladder CA w/ urostomy, CKD 4, pAF on no AC, asthma, hypothyroid, HL, BRCA s/p R mastectomy, hx thrombocytopenia, depression. H&P reports 4 days of N and dry heaves w/ resultant decreased po intake though pt denied this to me this am. when I evaluated her this am on rounds, she had few complaints and was anxious for discharge. specifically denied N, edema, sob, cough. did endorse decreased appetite/interested in food. Her creatinine was 2.4 on presentation; improved to 2.1 this am after starting ceftriaxone and receiving 1/2 L NS. her baseline creatinine is challenging to pinpoint b/c few OP labs available. has creatinine 1.7-2.0 based on 2 labs over the past year. she was admitted here about a year ago for 10 days w/ similar dxs: presenting creatinine was 2.7, peak (on day of admission) was 3.5; then d/c creatinine 2.0. Takes 20 mg daily lasix as OP and no other commonly nephrotoxic meds. Allergies Allergy/AdvReac Type Severity Reaction Status Date / Time Sulfa (Sulfonamide Allergy Intermediate "SULFA Verified 03/17/19 15:17 Antibiotics) DRUGS": RASH, NAUSEA lorazepam Allergy Mild DELIRIUM Verified 03/17/19 15:17 Cipro Allergy Unknown allergy Verified 10/09/16 13:38 ciprofloxacin Allergy Unknown allergy Verified 03/17/19 15:17 scopolamine AdvReac Mild DIZZINESS Verified 03/17/19 15:17 Home Medications Home Medications Medication Instructions Recorded Confirmed Type Caltrate 600 plus D 1 tab PO QAM 02/26/18 03/17/19 History PreserVision Lutein 1 tab PO BID 02/26/18 03/17/19 History acetaminophen [Tylenol] 650 mg PO Q6 PRN MDD 3 GRAMS/24 02/26/18 03/17/19 History HOURS docusate sodium 100 mg PO QAM 02/26/18 03/17/19 History ferrous sulfate 325 mg PO BID 02/26/18 03/17/19 History fluoxetine 20 mg PO QAM 02/26/18 03/17/19 History magnesium oxide 400 mg PO BID 02/26/18 03/17/19 History multivitamin [Daily Vitamin 1 tab PO QAM 02/26/18 03/17/19 History Formula] omeprazole 20 mg PO BID 02/26/18 03/17/19 History ondansetron HCl [Zofran] 4 mg PO Q4 PRN 02/26/18 03/17/19 History simvastatin 10 mg PO PM 02/26/18 03/17/19 History albuterol sulfate [Ventolin HFA] 2 puff INHALATION Q4 PRN 03/17/19 03/17/19 History amiodarone 100 mg PO QAM 03/17/19 03/17/19 History carbamide peroxide [Ear Drops Otc] 5 - 10 drp OTIC (EAR) UD PRN 03/17/19 03/17/19 History fluticasone propionate [Flovent 2 puff INHALATION BID 03/17/19 03/17/19 History HFA] furosemide 20 mg PO DAILY 03/17/19 03/17/19 History hydrocortisone 1 applic TOPICAL BID PRN 03/17/19 03/17/19 History ipratropium-albuterol 3 ml INHALATION QID PRN 03/17/19 03/17/19 History levothyroxine 175 mcg PO QAM 03/17/19 03/17/19 History Patient History Medical History Paroxysmal atrial fibrillation (Chronic) CAD in [place] artery (Chronic) Severe aortic stenosis (Chronic) Depression (Chronic) Thrombocytopenia (Chronic) Chronic anemia (Chronic) GERD (gastroesophageal reflux disease) (Chronic) Breast CA (Chronic) Bladder cancer (Chronic) Hypothyroidism (Chronic) HLD (hyperlipidemia) (Chronic) CAD (coronary artery disease) (Chronic) History of left heart catheterization (LHC) (Chronic) CKD (chronic kidney disease) stage 4, GFR 15-29 ml/min CKD (chronic kidney disease), stage III (Chronic) Surgical History H/O mastectomy (Chronic) History of urostomy (Chronic) History of carpal tunnel surgery (Chronic) H/O: hysterectomy (Chronic) History of appendectomy (Chronic) H/O foot surgery (Chronic) History of esophagogastroduodenoscopy (EGD) (Chronic) H/O cystoscopy (Chronic) Family History Other Asthma Breast cancer Stroke Social History Preferred Language: Turkish Communication Ability: Effective Visual Impairment: Limited Traffic Signal Technician Required: No Beliefs That Will Affect Care: None Current Living Situation: Residential Other Information That Helps Us Care for You: No Feels Safe at Home: Yes Safety Concerns: Feels Safe At This Time Smoking Status: Never smoker Second Hand Exposure: No ; Hx Alcohol Use: No Hx Substance Use: No Review of Systems Review of Systems: All systems reviewed & are unremarkable except as noted in HPI & below Constitutional: + fatigue; no weakness and no anorexia Eyes: no worsening vision Ear, Nose, Mouth, Throat: no dry mouth Respiratory: as per Subjective / HPI, + cough and + sputum production; no dyspnea and no pain with cough Cardiovascular: no chest pain, no dyspnea, no orthopnea, no palpitations and no edema Gastrointestinal: + early satiety (endorses poor appetite but no N (to me), no dysphagia); no abdominal pain and no change in bowel habits Genitourinary: no changes in urostomy OP Integumentary: no rash and no non-healing lesions Psychiatric: no behavioral changes Endocrine: + fatigue Hematologic / Lymphatic: no easy bleeding Physical Exam Constitutional: well developed and well nourished on RA Eyes: EOM intact bilaterally ENMT: Ears: no external ear abnormality Nose: no external nose abnormality Mouth: + dry oral mucous membranes Neck: no nuchal rigidity Respiratory: normal respiratory effort Auscultation: + diminished lung sounds Cardiovascular: Rate/Rhythm: regular rhythm and + tachycardic Extremities: no edema Gastrointestinal (Abdomen): Inspection/Auscultation: normal bowel sounds Percussion/Palpation: abdomen soft; abdomen nontender urostomy present RLQ w/ clear ample yellow urine Musculoskeletal: Extremities: strength 5/5 throughout Skin: no rashes, warm and dry Neurologic: diez, fluent speech, no tremor Psychiatric: A+Ox3, euthymic affect Results & Data Vital Signs (Past 12 Hours) Vital Signs Temp Pulse Pulse Pulse Resp BP Pulse Ox 03/18/19 15:31 36.8 C 96 H 22 103/67 92 03/18/19 13:31 78 18 93 03/18/19 08:14 100 H 03/18/19 07:17 36.7 C 94 H 16 137/71 92 03/18/19 07:01 96 H 18 92 Laboratory Results 03/18/19 07:16 03/18/19 07:16 urine cx proteus mirabilis, jacinto se Diagnostic Findings cxr 1. Cardiomegaly with prominence of the pulmonary vasculature. Correlate clinically for evidence of mild congestive failure. 2. No airspace consolidation or pleural effusion is identified. renal u/s Kidneys: The kidneys demonstrate cortical atrophy, left greater than right. The right kidney measures 10.9 x 3.2 x 3.6 cm and the left kidney measures 8.1 x 3.9 x 3.7 cm. There is no hydronephrosis. No shadowing renal calculi are identified. There is no sonographic evidence of contour deforming renal mass l esion. No perinephric fluid is identified. Bladder: The bladder is surgically absent. IMPRESSION: 1. The kidneys demonstrate cortical atrophy and are without hydronephrosis. 2. The bladder is surgically absent TTE HR 130-150 ? A fib; EF 60-65%; severe AV calcification/? severe but discordant data
[2019-03-18] MEDS: cefTRIAXone SODIUM 2,000 MG in DEXTROSE 5% 50 ML IV SCH (20:23)
[2019-03-18] MEDS: SIMVASTATIN 10 MG TAB PO SCH (20:27)
[2019-03-19] MEDS: LEVALBUTEROL HCL 0.63 MG/3 ML NEB NEB SCH ×4 (01:49→19:20)
[2019-03-19] MEDS: LEVOTHYROXINE SODIUM 175 MCG TABLET PO SCH (06:05)
[2019-03-19] MEDS: CEROVITE ADV FORMULA TAB PO SCH ×2 (08:03→20:30)
[2019-03-19] MEDS: CALCIUM 600MG + VIT D 400 IU TAB PO SCH (08:03)
[2019-03-19] MEDS: HEPARIN SOD 5,000 UNIT/0.5 ML VIAL SQ SCH ×2 (08:03→20:33)
[2019-03-19] MEDS: FERROUS SULFATE 325 MG TAB PO SCH ×2 (08:03→20:31)
[2019-03-19] MEDS: DOCUSATE SODIUM 100 MG CAP PO SCH (08:03)
[2019-03-19] MEDS: AMIODARONE 200 MG TAB PO SCH ×2 (08:03→20:31)
[2019-03-19] MEDS: FLUOXETINE HCL 20 MG CAP PO SCH (08:03)
[2019-03-19] MEDS: ASPIRIN 81 MG ECTAB PO SCH (08:03)
[2019-03-19] MEDS: MULTIVITAMIN TAB PO SCH (08:04)
[2019-03-19] MEDS: MAGNESIUM OXIDE 400 MG TAB PO SCH ×2 (08:04→20:31)
[2019-03-19] MEDS: FLUTICASONE HFA 110MCG INHALER INH SCH ×2 (09:12→20:32)
[2019-03-19] MEDS: PANTOprazole 40 MG TAB PO SCH ×2 (09:12→20:31)
[2019-03-19 11:06] LABS: BUN Creatinine Ratio 17.1 (10-20); Creatinine Clr Calc Pharmacy 15.2 ml/min; Est GFR (African American) 22.7; Est GFR (Non-African American) 19.6; Potassium 4.1 mmol/L (3.5-5.1)
--- NOTE | 2019-03-19 11:58 | Cardiology Progress Note ---
Date of Service March 19, 2019 Assessment & Plan (1) Paroxysmal atrial fibrillation: (2) Elevated troponin: (3) Aortic stenosis: (4) UTI (urinary tract infection): (5) GERA (acute kidney injury): (6) CAD in [place] artery: Continue amiodarone 200 mg twice daily with plans to reduce dose to 200 mg daily pending clinical course. Had a long discussion with the patient regarding the risk versus benefit of chronic anticoagulation. Due to her advanced age, renal dysfunction, chronic anemia, and fall risk, we will continue conservative management without chronic anticoagulation at this time. Recommend gentle IV hydration to improve volume status/renal function. Encourage patient to improve her oral hydration as well. Follow daily BMP. Subjective Patient seen and examined the bedside. Poor historian. Notes intermittent he artburn. Telemetry reviewed demonstrating sinus rhythm and sinus tachycardia. No recurrent atrial fibrillation. Creatinine trending upward. She offers no other concerns/complaints at this time. Review of Systems Review of Systems: All systems reviewed & are unremarkable except as noted in HPI & below Physical Exam Physical Exam: General: NAD, AAO x3, well nourished. HEENT: Normocephalic. Atraumatic. Conjunctiva pink, no scleral icterus. Neck: No carotid bruits, the carotid upstrokes are brisk. No JVD. No HJR Heart: Regular normal S-1 and diminished S2. 3/6 systolic ejection murmur heard best at the right second intercostal space. PMI is not displaced. No RV heave. Lungs: Clear bilateral without rales , rhonchi, or wheeze. Abdomen: Normal bowel sounds. Soft. Nontender. No masses or organomegaly. No abdominal bruits. Extremities: No clubbing, cyanosis, or edema. Pulses: radial=2/4, Dorsalis pedis =2/4, posterior tibial=2/4. Neuro: Cranial nerves grossly intact. No focal motor deficit. Results & Data Vital Signs (Past 12 Hours) Vital Signs Temp Pulse Pulse Resp BP Pulse Ox 03/19/19 08:00 88 03/19/19 07:31 37.1 C 91 H 18 126/69 97 03/19/19 07:06 96 H 18 91 03/19/19 04:03 37.4 C 90 19 107/65 91 03/19/19 00:15 37.3 C 89 18 120/58 L 91 03/19/19 00:00 90 (1) Aortic stenosis Cardiac valve disease etiology: nonrheumatic Qualified Code(s): I35.0 - Nonrheumatic aortic (valve) stenosis
[2019-03-19] MEDS ORDERED: SODIUM CHLORIDE 0.9% 500 ML IV SCH (12:00)
[2019-03-19] MEDS: SODIUM CHLORIDE 0.9% 1,000 ML IV SCH (14:43)
[2019-03-19] MEDS: cefTRIAXone SODIUM 2,000 MG in DEXTROSE 5% 50 ML IV SCH (17:18)
--- NOTE | 2019-03-19 18:52 | Hospitalist Progress Note ---
Date of Service March 19, 2019 Assessment & Plan (1) UTI (urinary tract infection): Present on admission with nausea and dark urine in urostomy bag. Preliminary urine culture from 03/16/19 +proteus that is pansensitive Repeat urine cx on admission grew gram negative baccilli On IV Ceftriaxone, will transition to oral abx Blood cx no growth Follow up urine sensitivity (2) Nausea: C/O nausea and decreased oral intake past couple of day. No abdominal pain. Denies diarrhea, constipation, fever/chills. May be secondary to UTI Resolved (3) Acute kidney injury superimposed on CKD: History CKD III-IV Creatinine has been fluctuated in the last few admission Cr: 2.3 on admission, Cr: 2.1 today Renal U/S showed kidneys demonstrate cortical atrophy and are without hydronephrosis. Case discussed with Nephrology recommended to continue current management Continue to hold lasix Avoid nephrotoxic agents when possible Continue gentle hydration Monitor BMP (4) Elevated troponin: Demand ischemia due to elevated creatinine Hx CAD - 40% stenosis LAD. Nonischemic nuclear stress test in 2012 Troponin: 0.23 on admission, then trending down EKG showed no acute ischemic changes ECHO showed no wall motion abnormality with EF 60-65% Continue Aspirin and Statin (5) Paroxysmal atrial fibrillation: has been in and out Afib with HR above 150's Convert back spontaneous to Normal sinus [facility] Cardiology on board increased Amiodarone from 100mg to 200mg BID case discussed with cardiology and if HR not control, can start on IV amiodarone if BP low Not on anticoagulation due to hx of thrombocytopenia and anemia Continue monitor (6) CAD (coronary artery disease): Hx CAD - 40% stenosis LAD. Nonischemic nuclear stress test in 2012 Continue aspirin and statin (7) Severe aortic stenosis: Has declined invasive procedures in past (8) Bladder cancer: Hx bladder CA with urostomy. stable (9) Hypothyroidism: Continue levothyroxine (10) Chronic anemia: Hgb: 9.8 today. Baseline Hgb: 10.4 Continue ferrous sulfate Monitor CBc Stable (11) GERD (gastroesophageal reflux disease): Continue PPI (12) Depression: Continue fluoxetine DVT Prophylaxis Heparin SQ CODE STATUS DNR/DNI Subjective Pt was seen and examined Lying in bed with no distress She has been in and out Afib She said that she feels fine Updates providing to daughter Denies any chest pain, palpitation, dizziness and SOB Physical Exam Physical Exam: General- No acute distress Head- atraumatic Eyes- PERRL, EOMI, ENT- oropharynx clear Neck- supple, no JVD Lungs- diminished BS Heart- regular rhythm; +systolic murmur Abdomen- normal bowel sounds, soft, nontender Extremities- no calf tenderness Neuro- alert, oriented x 3; PERRL, EOMI; no facial palsy; no dysarthria Skin- warm & dry Results & Data Vital Signs (Past 12 Hours) Vital Signs Temp Pulse Pulse Pulse Resp BP Pulse Ox 03/19/19 17:18 150 H 105/65 03/19/19 16:22 150 H 98/54 L 03/19/19 16:00 120 H 03/19/19 13:30 89 18 96 03/19/19 12:08 36.9 C 94 H 16 120/70 94 03/19/19 08:00 88 03/19/19 07:31 37.1 C 91 H 18 126/69 97 03/19/19 07:06 96 H 18 91
[2019-03-19] MEDS ORDERED: AMIODARONE 200 MG TAB PO ONE (18:55)
--- NOTE | 2019-03-19 19:15 | Nephrology Progress Note ---
Date of Service March 19, 2019 Assessment & Plan (1) Acute kidney injury superimposed on CKD: mild prerenal GERA on CKD4, nonoliguric but plateau'd today few baseline data found but working baseline creatinine is 1.7-2.0. she responded well to very gentle FR. chemistries acceptable; urine sediment chronically inflamed; renal u/s reassuring. chemistries acceptable. labile HR/BP, volume status challenging to assess -she had 500 mg NS then 80 mL NS maintenance rate > w/ crackles and HR increased, will lower rate to 50 mL/hr and stop after 750 mL -cont to avoid nephrotoxins -strict I/O -daily bmp (2) Chronic anemia: normocytic chronic anemia w/ baseline hgb usually 10s; monitor at least q48 to start; no intervention indicated currently (3) Paroxysmal atrial fibrillation: AF w/ RVR initially w/ spontaneous conversion to sinus tach > cardiology following; mild congestive failure on XR and mild OL on exam>give volume cautiously (4) UTI (urinary tract infection): clinically improving (in terms of urine appearance grossly) w/ hydration and IV abtx; WBC on uptrend notably and cough noted as well; monitor for non uti sources of infection here as nearly any urine cx drawn from urostomy will be positive; hx of recurrent proteus infections Subjective seen on rounds early this evening. no complaints >> no sob, no abd pain, no edema that she is aware of, urostomy OP ok, no chest discomfort Review of Systems Review of Systems: All systems reviewed & are unremarkable except as noted in HPI & below Physical Exam Constitutional: well developed and well nourished on RA Eyes: EOM intact bilaterally ENMT: Ears: no external ear abnormality Nose: no external nose abnormality Mouth: + dry oral mucous membranes Neck: no nuchal rigidity Respiratory: normal respiratory effort Auscultation: + diminished lung sounds and + crackles (1/3 way up posterior lentz BL) Cardiovascular: Rate/Rhythm: + tachycardic (cannot assess if regular or no) Extremities: no edema Gastrointestinal (Abdomen): Inspection/Auscultation: normal bowel sounds Percussion/Palpation: abdomen soft; abdomen nontender belches Musculoskeletal: Extremities: strength 5/5 throughout Skin: no rashes, warm and dry Neurologic: diez, fluent speech, no tremor Psychiatric: A+Ox3, euthymic affect Genitourinary: urostomy RLQ w/ clear urine Results & Data Vital Signs (Past 12 Hours) Vital Signs Temp Pulse Pulse Pulse Resp BP Pulse Ox 03/19/19 17:18 150 H 105/65 03/19/19 16:22 150 H 98/54 L 03/19/19 16:00 120 H 03/19/19 13:30 89 18 96 03/19/19 12:08 36.9 C 94 H 16 120/70 94 03/19/19 08:00 88 03/19/19 07:31 37.1 C 91 H 18 126/69 97 Laboratory Results 03/18/19 07:16 03/19/19 10:29
[2019-03-19] MEDS ORDERED: METOPROLOL TARTRATE 1 MG/ML VIAL IV STA (19:26)
[2019-03-19] MEDS: SIMVASTATIN 10 MG TAB PO SCH (20:30)
[2019-03-19] MEDS ORDERED: ALBUMIN 25% 50 ML IV ONE (22:24)
[2019-03-19 23:17] LABS: BUN Creatinine Ratio 16.9 (10-20); Calcium 8.7 mg/dl (8.5-10.1); Creatinine Clr Calc Pharmacy 15.5 ml/min; Est GFR (African American) 23.3; Est GFR (Non-African American) 20.1; Magnesium 2.3 mg/dl (1.8-2.4); Potassium 4.2 mmol/L (3.5-5.1)
[2019-03-20] MEDS: LEVALBUTEROL HCL 0.63 MG/3 ML NEB NEB SCH ×3 (01:25→13:12)
[2019-03-20] MEDS: LEVOTHYROXINE SODIUM 175 MCG TABLET PO SCH (06:16)
[2019-03-20 07:10] LABS: BUN Creatinine Ratio 16.2 (10-20); Calcium 9.2 mg/dl (8.5-10.1); Creatinine Clr Calc Pharmacy 15.7 ml/min; Est GFR (African American) 24.1; Est GFR (Non-African American) 20.8; Potassium 4.3 mmol/L (3.5-5.1)
[2019-03-20 07:14] LABS: Hematocrit (blood only) 28.9 % (37-47); Hemoglobin 9.5 g/dL (12.0-16.0); Mean Corpuscular Hemoglobin 28.9 pg (25-34); Mean Corpuscular Hgb Conc 32.9 g/dL (32-36); Mean Corpuscular Volume 87.8 fL (80-100); Mean Platelet Volume 11.2 fL (7.4-10.4); Platelet Count 216 K/uL (130-400); Platelet Estimate Normal (Normal); RDW Coefficient of Variation 16.8 % (11.5-14.5); RDW Standard Deviation 54.2 fL (36.4-46.3); Red Blood Count 3.29 M/uL (4.2-5.4)
[2019-03-20] MEDS: HEPARIN SOD 5,000 UNIT/0.5 ML VIAL SQ SCH (08:51)
[2019-03-20] MEDS: FLUTICASONE HFA 110MCG INHALER INH SCH (08:51)
[2019-03-20] MEDS: CALCIUM 600MG + VIT D 400 IU TAB PO SCH (08:52)
[2019-03-20] MEDS: FERROUS SULFATE 325 MG TAB PO SCH (08:52)
[2019-03-20] MEDS: CEROVITE ADV FORMULA TAB PO SCH (08:52)
[2019-03-20] MEDS: AMIODARONE 200 MG TAB PO SCH (08:52)
[2019-03-20] MEDS: MULTIVITAMIN TAB PO SCH (08:52)
[2019-03-20] MEDS: PANTOprazole 40 MG TAB PO SCH (08:52)
[2019-03-20] MEDS: ASPIRIN 81 MG ECTAB PO SCH (08:52)
[2019-03-20] MEDS: DOCUSATE SODIUM 100 MG CAP PO SCH (08:52)
[2019-03-20] MEDS: MAGNESIUM OXIDE 400 MG TAB PO SCH (08:52)
[2019-03-20] MEDS: FLUOXETINE HCL 20 MG CAP PO SCH (08:52)
[2019-03-20] MEDS ORDERED: AMIODARONE 200 MG TAB PO SCH (09:00)
[2019-03-20] MEDS: SODIUM CHLORIDE 0.9% 1,000 ML IV SCH (11:22)
[2019-03-20] MEDS ORDERED: cephALEXin 250 MG CAP PO SCH ×2 (18:00→21:00)
--- NOTE | 2019-03-20 18:44 | Hospitalist Progress Note ---
Date of Service March 20, 2019 Assessment & Plan (1) UTI (urinary tract infection): Present on admission with nausea and dark urine in urostomy bag. Preliminary urine culture from 03/16/19 +proteus that is pansensitive Repeat urine cx on admission grew gram negative baccilli On IV Ceftriaxone, will transition to oral abx Blood cx no growth Will change abx to kelfex 250mg BID (2) Nausea: C/O nausea and decreased oral intake past couple of day. No abdominal pain. Denies diarrhea, constipation, fever/chills. May be secondary to UTI Resolved (3) Acute kidney injury superimposed on CKD: History CKD III-IV Creatinine has been fluctuated in the last few admission Cr: 2.3 on admission, Cr: 2.1 today Renal U/S showed kidneys demonstrate cortical atrophy and are without hydronephrosis. Case discussed with Nephrology recommended to continue current management Continue to hold lasix Avoid nephrotoxic agents when possible Follow up with nephrology in 2 weeks Monitor BMP (4) Elevated troponin: Demand ischemia due to elevated creatinine Hx CAD - 40% stenosis LAD. Nonischemic nuclear stress test in 2012 Troponin: 0.23 on admission, then trending down EKG showed no acute ischemic changes ECHO showed no wall motion abnormality with EF 60-65% Continue Aspirin and Statin (5) Paroxysmal atrial fibrillation: has been in and out Afib with HR above 150's Convert back spontaneous to Normal sinus [facility] Cardiology on board increased Amiodarone from 100mg to 200mg BID case discussed with cardiology and if HR not control, can start on IV amiodarone if BP low Not on anticoagulation due to hx of thrombocytopenia and anemia Ok from cardiology standpoint to discharge on Amiodarone 200mg daily Follow up with cardiology in 2 weeks (6) CAD (coronary artery disease): Hx CAD - 40% stenosis LAD. Nonischemic nuclear stress test in 2013 Continue aspirin and statin (7) Severe aortic stenosis: Has declined invasive procedures in past (8) Bladder cancer: Hx bladder CA with urostomy. stable (9) Hypothyroidism: Continue levothyroxine (10) Chronic anemia: Hgb: 9.8 today. Baseline Hgb: 10.4 Continue ferrous sulfate Monitor CBc Stable (11) GERD (gastroesophageal reflux disease): Continue PPI (12) Depression: Continue fluoxetine DVT Prophylaxis Heparin SQ CODE STATUS DNR/DNI Subjective Pt was seen and examined Sitting in bed with no distress with daughter at bedside Pt said that she feels fine She has been on sinus rhythm since last night Denies any chest pain, palpitation, dizziness and SOB Physical Exam Physical Exam: General- No acute distress Head- atraumatic Eyes- PERRL, EOMI, ENT- oropharynx clear Neck- supple, no JVD Lungs- diminished BS Heart- regular rhythm; +systolic murmur Abdomen- normal bowel sounds, soft, nontender Extremities- no calf tenderness Neuro- alert, oriented x 3; PERRL, EOMI; no facial palsy; no dysarthria Skin- warm & dry Results & Data Vital Signs (Past 12 Hours) Vital Signs Temp Pulse Pulse Resp BP Pulse Ox 03/20/19 17:29 36.8 C 150 H 86 18 145/78 H 91 03/20/19 12:09 36.8 C 86 18 145/78 H 91 03/20/19 08:29 37.0 C 82 16 118/69 92 03/20/19 07:13 78 20 96
--- NOTE | 2019-03-20 18:47 | Discharge Summary ---
Date of Service March 20, 2019 Admission HPI Per Admitting Provider Pt is 87 y/o F with PMH bladder CA with urostomy, CKD III-IV, CAD, hypothyroidism, dyslipidemia, chronic anemia, depression, h/o breast CA s/p R mastectomy, h/o thrombocytopenia, asthma, paroxysmal atrial fibrillation presented to ER from [facility] for nausea x 4 days and noted dark urine. Pt's daughter is concerned for UTI. Decreased oral intake secondary to nausea and dry heaves. She reports chronic cough sometimes white productive, however past couple of days with increased cough and today had green productive cough. Denies any known cases of flu at [facility]. Reports had flu vaccine this season. Reports chronic BLE edema worse with prolonged sitting but states recently has had decreased BLE edema. States uses walker to ambulate. Is able to ambulate to dining table and bathroom without reported SOB/CP. Denies metallic taste in mouth. Denies fever/chills, diaphoresis, hematuria, D/C, MELO, dizziness, syncope, vision changes, neck pain, CP, SOB, orthopnea, palpitations, sore throat, choking, otalgia, rhinorrhea, abdominal pain, paresthesias, weakness, extremity weakness, rashes. Admission Exam Per Admitting Provider General: no distress, WDWN Head: normocephalic, atraumatic Eyes: PERRL, EOM's intact, conjunctiva non-injected, anicteric ENT: normal inspection external ears, nose, mucous membranes mildly dry Neck: supple, trachea midline, non-tender Lungs: no respiratory distress, +scattered wheezing throughout, no rales or rhonchi CV: RRR, systolic murmur, no JVD, trace pretibial edema Abd: normal BS, soft, non-tender Ext: no cyanosis, no calf tenderness Neuro: A&O x 2, confused on time, no focal deficits noted, normal affect Skin: warm, dry Principal Diagnosis UTI (urinary tract infection): Nausea: Acute kidney injury superimposed on CKD 3: Elevated troponin Paroxysmal atrial fibrillation: CAD (coronary artery disease): Severe aortic stenosis: Bladder cancer: Hypothyroidism: Chronic anemia: GERD (gastroesophageal reflux disease): Depression: Discharge Exam General- No acute distress Head- atraumatic Eyes- PERRL, EOMI, ENT- oropharynx clear Neck- supple, no JVD Lungs- diminished BS Heart- regular rhythm; +systolic murmur Abdomen- normal bowel sounds, soft, nontender Extremities- no calf tenderness Neuro- alert, oriented x 3; PERRL, EOMI; no facial palsy; no dysarthria Skin- warm & dry Discharge Data Allergies Allergy/AdvReac Type Severity Reaction Status Date / Time Sulfa (Sulfonamide Allergy Intermediate "SULFA Verified 03/17/19 15:17 Antibiotics) DRUGS": RASH, NAUSEA lorazepam Allergy Mild DELIRIUM Verified 03/17/19 15:17 Cipro Allergy Unknown allergy Verified 10/09/16 13:38 ciprofloxacin Allergy Unknown allergy Verified 03/17/19 15:17 scopolamine AdvReac Mild DIZZINESS Verified 03/17/19 15:17 Consultations 03/17/19 15:38 ED Decision to Admit Stat 03/17/19 18:16 Consult Case Management - Discharge Planning Routine Consult Nephrology Routine 03/18/19 13:26 Consult Cardiology Routine Ordered Studies 03/17/19 18:16 US renal/blad retro comp Urgent ULTRASOUND KIDNEYS AND BLADDER CLINICAL HISTORY: Acute renal insufficiency. COMPARISON STUDY: Abdominal CT dated 02/26/2018. TECHNIQUE: Real-time, grayscale, and color flow sonography of the kidneys and bladder is performed. Images are reviewed in the transverse and longitudinal planes. FINDINGS: Kidneys: The kidneys demonstrate cortical atrophy, left greater than right. The right kidney measures 10.9 x 3.2 x 3.6 cm and the left kidney measures 8.1 x 3.9 x 3.7 cm. There is no hydronephrosis. No shadowing renal calculi are identified. There is no sonographic evidence of contour deforming renal mass lesion. No perinephric fluid is identified. Bladder: The bladder is surgically absent. IMPRESSION: 1. The kidneys demonstrate cortical atrophy and are without hydronephrosis. 2. The bladder is surgically absent Electronically signed by: Richard Hills M.D. 03/17/2019 8:50 PM Dictated: 03/17/192047 Transcribed: 03/17/192047 TWO VIEW CHEST CLINICAL HISTORY: Productive cough. FINDINGS: AP and lateral chest radiographs are compared to study dated 03/06/2018. The heart is enlarged noting atherosclerotic calcification of the thoracic aorta. There is prominence of the pulmonary vasculature. There is bibasilar scarring/atelectasis. No airspace consolidation is identified. There is no pleural effusion or pneumothorax. The skeletal structures are osteopenic. The bony thorax appears intact. Surgical clips are noted in the right axilla. IMPRESSION: 1. Cardiomegaly with prominence of the pulmonary vasculature. Correlate clinically for evidence of mild congestive failure. 2. No airspace consolidation or pleural effusion is identified. Electronically signed by: Richard Hills M.D. 03/17/2019 4:15 PM Dictated: 03/17/19 1614 Transcribed: 03/17/19 1614 Hospital Course (1) UTI (urinary tract infection): Present on admission with nausea and dark urine in urostomy bag. Preliminary urine culture from 03/16/19 +proteus that is pansensitive Repeat urine cx on admission grew gram negative baccilli On IV Ceftriaxone, will transition to oral abx Blood cx no growth Will change abx to kelfex 250mg BID (2) Nausea: C/O nausea and decreased oral intake past couple of day. No abdominal pain. Denies diarrhea, constipation, fever/chills. May be secondary to UTI Resolved (3) Acute kidney injury superimposed on CKD: History CKD III-IV Creatinine has been fluctuated in the last few admission Cr: 2.3 on admission, Cr: 2.1 today Renal U/S showed kidneys demonstrate cortical atrophy and are without hydronephrosis. Case discussed with Nephrology recommended to continue current management Continue to hold lasix Avoid nephrotoxic agents when possible Follow up with nephrology in 2 weeks Monitor BMP (4) Elevated troponin: Demand ischemia due to elevated creatinine Hx CAD - 40% stenosis LAD. Nonischemic nuclear stress test in 2012 Troponin: 0.23 on admission, then trending down EKG showed no acute ischemic changes ECHO showed no wall motion abnormality with EF 60-65% Continue Aspirin and Statin (5) Paroxysmal atrial fibrillation: has been in and out Afib with HR above 150's Convert back spontaneous to Normal sinus rythm Cardiology on board increased Amiodarone from 100mg to 200mg BID case discussed with cardiology and if HR not control, can start on IV amiodarone if BP low Not on anticoagulation due to hx of thrombocytopenia and anemia Ok from cardiology standpoint to discharge on Amiodarone 200mg daily Follow up with cardiology in 2 weeks (6) CAD (coronary artery disease): Hx CAD - 40% stenosis LAD. Nonischemic nuclear stress test in 2013 Continue aspirin and statin (7) Severe aortic stenosis: Has declined invasive procedures in past (8) Bladder cancer: Hx bladder CA with urostomy. stable (9) Hypothyroidism: Continue levothyroxine (10) Chronic anemia: Hgb: 9.8 today. Baseline Hgb: 10.4 Continue ferrous sulfate Monitor CBc Stable (11) GERD (gastroesophageal reflux disease): Continue PPI (12) Depression: Continue fluoxetine DVT Prophylaxis Heparin SQ CODE STATUS DNR/DNI Total Time Total Time Spent Total Time Spent (In Minutes): 35 minutes Total Time Includes: Examination of the Patient, Discharge Planning, Medication Reconciliation, Communication With Other Providers and Other Discharge Plan Discharge Items Patient Disposition: Personal [facility] Reason For Visit: UTI, GERA Discharge Diagnosis: UTI (urinary tract infection): Nausea: Acute kidney injury superimposed on CKD 3: Elevated troponin: Condition on Discharge: Fair Activity: Resume your previous activity Activity Comment: as tolerated Non-emergency contact: Primary Care Provider Call non-emergency contact if: you have any medication questions and your temperature is above 101 Follow-up/Referrals: Devaughn Voss [Primary Care Provider] - Diet: Heart Healthy Addtl Attending Provider Instructions: Follow up with your primary care provider dr. Lopez Follow up with Nephrology dr. Sabillon (Please call for the appointment) Follow up with cardiology in 2 to 4 weeks (Please call for the appointment) Check BMP in 1 week to monitor renal function Complete the course of the antibiotic Fall precaution Pending Studies at Discharge: No Stand-Alone Forms: [employer], Smoking Cessation Skilled Items Patient informed of condition?: Yes DNR: Yes Discharge Level of Care: Other Communicable Disease: No Discharge Prognosis: Stable Lines: None Urinary Catheter: No Medications and DC Order Prescriptions: New cephalexin 250 mg Capsule 250 mg PO BID 4 Days Qty: 8 RF: 0 Continued multivitamin [Daily Vitamin Formula] Tablet 1 tab PO QAM RF: 0 acetaminophen [Tylenol] 325 mg Tablet 650 mg PO Q6 MDD 3 GRAMS/24 HOURS PRN (Reason: Fever Or Pain) RF: 0 ondansetron HCl [Zofran] 4 mg Tablet 4 mg PO Q4 PRN (Reason: NAUSEA/VOMITING) RF: 0 simvastatin 10 mg Tablet 10 mg PO PM RF: 0 ferrous sulfate 325 mg (65 mg iron) Tablet 325 mg PO BID RF: 0 docusate sodium 100 mg Capsule 100 mg PO QAM RF: 0 omeprazole 20 mg Capsule,Delayed Release(Dr/Ec) 20 mg PO BID RF: 0 fluoxetine 20 mg Capsule 20 mg PO QAM RF: 0 PreserVision Lutein 226 mg-200 unit -5 mg-0.8 mg Capsule 1 tab PO BID RF: 0 Caltrate 600 plus D 600 mg (1,500 mg)-800 unit Tablet,Chewable 1 tab PO QAM RF: 0 magnesium oxide 400 mg magnesium Tablet 400 mg PO BID RF: 0 levothyroxine 175 mcg tablet 175 mcg PO QAM RF: 0 ipratropium-albuterol 0.5 mg-3 mg(2.5 mg base)/3 mL solution for nebulization 3 ml inhalation QID PRN (Reason: Shortness Of Breath Or Wheezing) RF: 0 carbamide peroxide [Ear Drops Otc] 6.5 % Drops 5 - 10 drp OTIC (EAR) UD PRN (Reason: prn) RF: 0 albuterol sulfate [Ventolin HFA] 90 mcg/actuation HFA aerosol inhaler 2 puff inhalation Q4 PRN (Reason: Shortness Of Breath Or Wheezing) RF: 0 Flovent HFA 110 mcg/actuation HFA aerosol inhaler 2 puff inhalation BID RF: 0 hydrocortisone 1 % Cream 1 applic TOPICAL BID PRN (Reason: Rash) RF: 0 furosemide 20 mg Tablet 20 mg PO DAILY RF: 0 Changed amiodarone 200 mg tablet 200 mg PO QAM 30 Days Qty: 30 RF: 0 Discharge Orders: Discharge Order (Routine); Ordered 03/20/19 Ordered By: Isaac Garza Admission Data Admit Date/Time: 03/17/19 16:41 Attending Provider: Isaac Garza Admit Provider: Arron Tobin Primary Care Provider: Devaughn Voss Other Providers: Monica Sabillon ; Arron Tobin ; Rock Rocha Other Interventions: Discharge Summary Assessment (RN) Last Done: 03/20/19 17:29 DC Date/Time DO NOT enter until pt leaves facility: 03/20/19 17:54
== END 2019-03-20 17:54 | disposition home or self-care (01) | DRG 683 ==
LOC: ED 13:16 → SUATTDRO 16:41 → 2W 16:41 → 2N 03-18 12:09

== ENCOUNTER 2020-03-01 11:26 | Inpatient (IN) ==
--- NOTE | 2020-03-01 12:34 | Emergency Department Note ---
Impression & Plan Acute GI bleeding, Symptomatic anemia, Chronic kidney disease ED Provider Note NAME: CONI CRANE AGE: 89 SEX: F : 1930 ARRIVES VIA: Ambulance INFORMANT: Patient ED PROVIDER(S): Hernan Hernandez DO CHIEF COMPLAINT: Weakness HPI: Patient is a 89-year-old female with a past medical history of CAD, renal failure, thrombocytopenia that presents the ER for weakness. Weakness has been present for the past several weeks per the daughter and patient. They had a hemoglobin checked which was 7 today and patient was referred in. The PCP at [facility] sent her here without evaluation. Patient denies any headache, change in vision, chest pain shortness of breath nausea vomiting or diarrhea. Denies any right red blood or dark tarry stools. Denies any blood thinners. ROS: See above HPI for pertinent positives & negatives. A total of 10 systems reviewed and were otherwise negative. PAST MEDICAL HISTORY:See Below PAST SURGICAL HISTORY:See Below FAMILY HISTORY:See Below SOCIAL HISTORY:See Below HOME MEDICATIONS:See Below ALLERGIES:See Below VITALS:See Below PHYSICAL EXAMINATION: GENERAL: Sitting up in bed, alert, well appearing, well nourished, no distress, non-toxic EYE EXAM: normal conjunctiva. OROPHARYNX: no exudate, no erythema, lips, buccal mucosa, and tongue normal and mucous membranes are moist NECK: supple, no nuchal rigidity, no adenopathy, non-tender LUNGS: Clear to auscultation. Normal chest wall mechanics HEART: no murmurs, S1 normal and S2 normal ABDOMEN: abdomen soft, non-tender, normo-active bowel sounds, no masses, no rebound or guarding. RECTAL: hem + UPPER EXTREMITIES: upper extremities are grossly normal. LOWER EXTREMITIES: No pitting edema. NEURO EXAM: Normal sensorium, cranial nerves II-XII grossly intact, normal speech, no gross weakness of arms, no gross weakness of legs. MEDICAL DECISION MAKING: Patient is an 89-year-old female that presents the ER for abnormal blood work. IV was established blood work was obtained. Labs show a hemoglobin of 7.3 down from 10. INR was unremarkable. BMP with a creatinine of 1.87 which was consistent with previous. LFTs bilirubin and troponin was negative. Rectally heme positive. Patient was typed and crossed. She has no other symptoms at this time. Updated patient and family at bedside. Discussed with the hospitalist and patient will be admitted for further work-up. Triage Nursing notes reviewed. Prior medical records reviewed Vital Signs: reviewed and remarkable for no significant abnormalities Differential diagnosis: Differential diagnosis includes etiologies such as diverticulitis, diverticulosis, AVM, coagulopathy, colitis, inflammatory bowel disease, anayeli gnancy, Rowena-Hood tear, esophagitis, peptic ulcer disease, variceal bleed, gastritis, epistaxis, fissure, hemorrhoids, as well as others were entertained. ER treatment provided: See below Diagnostics interpreted by me: ECG: Sinus rhythm rate 82 Normal axis No PVCs Septal Q waves with ST segment elevations in V1 and V2. No significant change from March 2019 Cardiac Monitoring: An order was placed for continuous cardiac monitoring. The monitor shows a rate of 80 with sinus rhythm. Laboratory studies: As stated above and show below. Imaging studies: See below Consultation(s): none ED COURSE: Procedures: none Critical Care: None Past Med/Surg History Medical History (Updated 03/01/20 @ 16:42 by Hernan Hernandez DO) Bladder cancer Breast CA CAD in [place] artery Chronic anemia CKD (chronic kidney disease) stage 4, GFR 15-29 ml/min CKD (chronic kidney disease), stage III Depression GERD (gastroesophageal reflux disease) HLD (hyperlipidemia) Hypothyroidism Paroxysmal atrial fibrillation Severe aortic stenosis Thrombocytopenia Surgical History H/O cystoscopy H/O foot surgery H/O mastectomy right side H/O: hysterectomy History of appendectomy History of carpal tunnel surgery History of esophagogastroduodenoscopy (EGD) History of left heart catheterization (LHC) History of urostomy Family History Other Asthma Breast cancer Stroke Social History Smoking Status: Former smoker Preferred Language: [place] Communication Ability: Effective Visual Impairment: Limited Field Installation Technician Required: No Beliefs That Will Affect Care: None Current Living Situation: Long Term Current Living Situation Comment: pt is a resident of [facility] Feels Safe at Home: Yes Assistive Devices: None Allergies Allergies Allergy/AdvReac Type Severity Reaction Status Date / Time Sulfa (Sulfonamide Allergy Intermediate "SULFA Verified 03/01/20 14:01 Antibiotics) DRUGS": RASH, NAUSEA lorazepam Allergy Mild DELIRIUM Verified 03/01/20 14:01 Cipro Allergy Unknown allergy Verified 10/09/16 13:38 ciprofloxacin Allergy Unknown allergy Verified 03/01/20 14:01 scopolamine AdvReac Mild DIZZINESS Verified 03/01/20 14:01 Home Meds Home Medications Medication Instructions Recorded Confirmed PreserVision Lutein 1 tab PO BID 02/26/18 03/01/20 acetaminophen [Tylenol] 650 mg PO Q6 PRN MDD 3 GRAMS/24 02/26/18 03/01/20 HOURS docusate sodium 100 mg PO QAM 02/26/18 03/01/20 fluoxetine 20 mg PO QAM 02/26/18 03/01/20 magnesium oxide 400 mg PO BID 02/26/18 03/01/20 multivitamin [Daily Vitamin 1 tab PO QAM 02/26/18 03/01/20 Formula] omeprazole 20 mg PO BID 02/26/18 03/01/20 ondansetron HCl [Zofran] 4 mg PO Q4 PRN 02/26/18 03/01/20 simvastatin 10 mg PO PM 02/26/18 03/01/20 Flovent HFA 2 puff INHALATION BID 03/17/19 03/01/20 albuterol sulfate [Ventolin HFA] 2 puff INHALATION Q4 PRN 03/17/19 03/01/20 carbamide peroxide [Ear Drops Otc] 5 - 10 drp OTIC (EAR) UD PRN 03/17/19 03/01/20 furosemide 20 mg PO 3XWK 03/17/19 03/01/20 levothyroxine 175 mcg PO QAM 03/17/19 03/01/20 amiodarone 200 mg PO QAM 06/29/19 03/01/20 menthol-zinc oxide [Calmoseptine] 1 applic TOPICAL DAILY PRN 06/29/19 03/01/20 loratadine 10 mg PO QAM 03/01/20 03/01/20 montelukast 10 mg PO HS 03/01/20 03/01/20 Results & Data (ED) Vital Signs Vital Signs - 24 hr 03/01/20 11:35 03/01/20 11:40 03/01/20 11:43 Temperature 36.7 C Temperature Source Oral Pulse Rate 82 85 81 Pulse Rate from SpO2 Sensor 81 81 Respiratory Rate 20 20 20 Respiratory Effort / Characteristics Non-Labored Respiratory Depth Normal Respiratory Pattern Regular Blood Pressure 134/64 134/64 Blood Pressure Mean 105 87 Pulse Oximetry 96 97 96 Oxygen Delivery Method Room Air Sepsis Recent Fever Within 48 Hours No Sepsis New/Unexplained Change in Mental Status No Sepsis Action Taken by Nursing No Action Required 03/01/20 12:00 03/01/20 12:30 03/01/20 13:00 Temperature Temperature Source Pulse Rate 81 83 80 Pulse Rate from SpO2 Sensor 81 82 81 Respiratory Rate 20 21 21 Respiratory Effort / Characteristics Respiratory Depth Respiratory Pattern Blood Pressure 144/53 H 127/61 Blood Pressure Mean 79 106 Pulse Oximetry 95 98 97 Oxygen Delivery Method Sepsis Recent Fever Within 48 Hours Sepsis New/Unexplained Change in Mental Status Sepsis Action Taken by Nursing 03/01/20 13:15 03/01/20 13:30 03/01/20 14:00 Temperature Temperature Source Pulse Rate 83 80 82 Pulse Rate from SpO2 Sensor 82 80 81 Respiratory Rate 19 22 22 Respiratory Effort / Characteristics Respiratory Depth Respiratory Pattern Blood Pressure 147/63 H 144/60 H 155/60 H Blood Pressure Mean 90 85 93 Pulse Oximetry 97 96 95 Oxygen Delivery Method Sepsis Recent Fever Within 48 Hours Sepsis New/Unexplained Change in Mental Status Sepsis Action Taken by Nursing 03/01/20 14:30 Temperature Temperature Source Pulse Rate 81 Pulse Rate from SpO2 Sensor 80 Respiratory Rate 18 Respiratory Effort / Characteristics Respiratory Depth Respiratory Pattern Blood Pressure 143/59 H Blood Pressure Mean 82 Pulse Oximetry 90 Oxygen Delivery Method Sepsis Recent Fever Within 48 Hours Sepsis New/Unexplained Change in Mental Status Sepsis Action Taken by Nursing Laboratory Data Result diagrams: 03/01/20 12:58 03/01/20 12:58 Lab Results 03/01/20 03/01/20 03/01/20 Range/Units 12:52 12:58 12:58 WBC 7.01 (4.8-10.8) K/uL RBC 2.78 L (4.2-5.4) M/uL Hgb 7.3 L (12.0-16.0) g/dL Hct 22.9 L (37-47) % MCV 82.4 (80-100) fL MCH 26.3 (25-34) pg MCHC 31.9 L (32-36) g/dL RDW Std Deviation 52.8 H (36.4-46.3) fL RDW Coeff of Sunita 17.4 H (11.5-14.5) % Plt Count 255 (130-400) K/uL MPV 11.8 H (7.4-10.4) fL Immature Gran % (Auto) 0.4 % Neut % (Auto) 51.0 % Lymph % (Auto) 26.4 % Winn % (Auto) 18.1 % Eos % (Auto) 4.0 % Baso % (Auto) 0.1 % Neut # (Auto) 3.57 (1.4-6.5) K/uL Lymph # (Auto) 1.85 (1.2-3.4) K/uL Winn # (Auto) 1.27 H (0.11-0.59) K/uL Eos # (Auto) 0.28 (0-0.5) K/uL Baso # (Auto) 0.01 (0-0.2) K/uL Immature Gran # (Auto) 0.03 H (0.00-0.02) K/uL PT (9.0-12.0) Seconds INR (0.9-1.1) APTT (21.0-31.0) Seconds PTT Ratio Sodium (136-145) mmol/L Potassium (3.5-5.1) mmol/L Chloride (98-107) mmol/L Carbon Dioxide (21-32) mmol/L Anion Gap (3-11) BUN (7-18) mg/dl Creatinine (0.6-1.2) mg/dl Est Cr Clr Drug Dosing ml/min Est GFR ( Amer) Est GFR (Non-Af Amer) BUN/Creatinine Ratio (10-20) Glucose (70-99) mg/dl Calcium (8.5-10.1) mg/dl Total Bilirubin (0.2-1) mg/dl AST (15-37) U/L ALT (12-78) U/L Alkaline Phosphatase (45-117) U/L Troponin I (0-0.045) ng/ml Total Protein (6.4-8.2) gm/dl Albumin (3.4-5.0) gm/dl Globulin (2.5-4.0) gm/dl Albumin/Globulin Ratio (0.9-2) POC Stool Occult Blood Positive A (Negative) Blood Type A Positive Antibody Screen NEGATIVE 03/01/20 03/01/20 Range/Units 12:58 12:58 WBC (4.8-10.8) K/uL RBC (4.2-5.4) M/uL Hgb (12.0-16.0) g/dL Hct (37-47) % MCV (80-100) fL MCH (25-34) pg MCHC (32-36) g/dL RDW Std Deviation (36.4-46.3) fL RDW Coeff of Sunita (11.5-14.5) % Plt Count (130-400) K/uL MPV (7.4-10.4) fL Immature Gran % (Auto) % Neut % (Auto) % Lymph % (Auto) % Winn % (Auto) % Eos % (Auto) % Baso % (Auto) % Neut # (Auto) (1.4-6.5) K/uL Lymph # (Auto) (1.2-3.4) K/uL Winn # (Auto) (0.11-0.59) K/uL Eos # (Auto) (0-0.5) K/uL Baso # (Auto) (0-0.2) K/uL Immature Gran # (Auto) (0.00-0.02) K/uL PT 11.4 (9.0-12.0) Seconds INR 1.1 (0.9-1.1) APTT 26.7 (21.0-31.0) Seconds PTT Ratio 1.0 Sodium 137 (136-145) mmol/L Potassium 4.3 (3.5-5.1) mmol/L Chloride 103 (98-107) mmol/L Carbon Dioxide 29 (21-32) mmol/L Anion Gap 5.0 (3-11) BUN 26 H (7-18) mg/dl Creatinine 1.87 H (0.6-1.2) mg/dl Est Cr Clr Drug Dosing 16.6 ml/min Est GFR ( Amer) 27.3 Est GFR (Non-Af Amer) 23.6 BUN/Creatinine Ratio 13.9 (10-20) Glucose 84 (70-99) mg/dl Calcium 9.5 (8.5-10.1) mg/dl Total Bilirubin 0.3 (0.2-1) mg/dl AST 28 (15-37) U/L ALT 27 (12-78) U/L Alkaline Phosphatase 91 (45-117) U/L Troponin I < 0.015 (0-0.045) ng/ml Total Protein 8.2 (6.4-8.2) gm/dl Albumin 2.9 L (3.4-5.0) gm/dl Globulin 5.3 H (2.5-4.0) gm/dl Albumin/Globulin Ratio 0.5 L (0.9-2) POC Stool Occult Blood (Negative) Blood Type Antibody Screen Discharge Plan Visit Data Chief Complaint: Referred by Doctor ED Provider: Hernan Hernandez Discharge Problem: Acute GI bleeding, Symptomatic anemia, Chronic kidney disease Forms Stand Alone Forms: [facility] Prescriptions Prescriptions: No Action multivitamin [Daily Vitamin Formula] Tablet 1 tab PO QAM RF: 0 acetaminophen [Tylenol] 325 mg Tablet 650 mg PO Q6 MDD 3 GRAMS/24 HOURS PRN (Reason: Fever Or Pain) RF: 0 ondansetron HCl [Zofran] 4 mg Tablet 4 mg PO Q4 PRN (Reason: NAUSEA/VOMITING) RF: 0 simvastatin 10 mg Tablet 10 mg PO PM RF: 0 docusate sodium 100 mg Capsule 100 mg PO QAM RF: 0 omeprazole 20 mg Capsule,Delayed Release(Dr/Ec) 20 mg PO BID RF: 0 fluoxetine 20 mg Capsule 20 mg PO QAM RF: 0 PreserVision Lutein 226 mg-200 unit -5 mg-0.8 mg Capsule 1 tab PO BID RF: 0 magnesium oxide 400 mg magnesium Tablet 400 mg PO BID RF: 0 levothyroxine 175 mcg tablet 175 mcg PO QAM RF: 0 carbamide peroxide [Ear Drops Otc] 6.5 % Drops 5 - 10 drp OTIC (EAR) UD PRN (Reason: prn) RF: 0 albuterol sulfate [Ventolin HFA] 90 mcg/actuation HFA aerosol inhaler 2 puff inhalation Q4 PRN (Reason: Shortness Of Breath Or Wheezing) RF: 0 Flovent HFA 110 mcg/actuation HFA aerosol inhaler 2 puff inhalation BID RF: 0 furosemide 20 mg Tablet 20 mg PO 3XWK RF: 0 amiodarone 200 mg Tablet 200 mg PO QAM RF: 0 Calmoseptine 0.44-20.6 % Ointment 1 applic TOPICAL DAILY PRN (Reason: rash) RF: 0 montelukast 5 mg tablet,chewable 10 mg PO HS RF: 0 loratadine 10 mg Tablet 10 mg PO QAM RF: 0 Referrals Referrals: PAUL HAMLIN MARIA TERESA [Primary Care Provider] - Discharge Problem: Chronic kidney disease Qualifiers: Chronic kidney disease stage: unspecified stage Qualified Code(s): N18.9 - Chronic kidney disease, unspecified
[2020-03-01 13:12] LABS: Basophils # (auto) 0.01 K/uL (0-0.2); Basophils % (auto) 0.1 %; Eosinophils # (auto) 0.28 K/uL (0-0.5); Hematocrit (blood only) 22.9 % (37-47); Hemoglobin 7.3 g/dL (12.0-16.0); Immature Granulocytes # (auto) 0.03 K/uL (0.00-0.02); Immature Granulocytes % (auto) 0.4 %; Lymphocytes # (auto) 1.85 K/uL (1.2-3.4); Lymphocytes % (auto) 26.4 %; Mean Corpuscular Hemoglobin 26.3 pg (25-34); Mean Corpuscular Hgb Conc 31.9 g/dL (32-36); Mean Corpuscular Volume 82.4 fL (80-100); Mean Platelet Volume 11.8 fL (7.4-10.4); Monocytes # (auto) 1.27 K/uL (0.11-0.59); Monocytes % (auto) 18.1 %; Neutrophils # (auto) 3.57 K/uL (1.4-6.5); Platelet Count 255 K/uL (130-400); RDW Coefficient of Variation 17.4 % (11.5-14.5); RDW Standard Deviation 52.8 fL (36.4-46.3); Red Blood Count 2.78 M/uL (4.2-5.4); White Blood Count 7.01 K/uL (4.8-10.8)
[2020-03-01 13:27] LABS: INR 1.1 (0.9-1.1); Partial Thromboplastin Time 26.7 Seconds (21.0-31.0); Prothrombin Time 11.4 Seconds (9.0-12.0)
[2020-03-01 13:38] LABS: Alanine Aminotransferase 27 U/L (12-78); Albumin Level 2.9 gm/dl (3.4-5.0); Aspartate Aminotransferase 28 U/L (15-37); BUN Creatinine Ratio 13.9 (10-20); Blood Urea Nitrogen 26 mg/dl (7-18); Calcium 9.5 mg/dl (8.5-10.1); Carbon Dioxide 29 mmol/L (21-32); Chloride 103 mmol/L (98-107); Creatinine Clr Calc Pharmacy 16.6 ml/min; Est GFR (African American) 27.3; Est GFR (Non-African American) 23.6; Glucose 84 mg/dl (70-99); Potassium 4.3 mmol/L (3.5-5.1); Sodium 137 mmol/L (136-145)
[2020-03-01 13:43] LABS: Albumin Globulin Ratio 0.5 (0.9-2); Alkaline Phosphatase 91 U/L (45-117); Bilirubin,Total 0.3 mg/dl (0.2-1); Globulin 5.3 gm/dl (2.5-4.0); Total Protein 8.2 gm/dl (6.4-8.2); Troponin I < 0.015 ng/ml (0-0.045)
--- NOTE | 2020-03-01 16:45 | Electrocardiogram Report ---
Test Reason : Blood Pressure : / mmHG Vent. 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
[2020-03-01] MEDS ORDERED: PANTOPRAZOLE BOLUS/DRIP 1 EA IV STA (17:02)
[2020-03-01] MEDS ORDERED: PANTOprazole 80 MG in DEXTROSE 5% 100 ML IV ONE (17:15)
--- NOTE | 2020-03-01 17:17 | History & Physical Report ---
Date of Service March 01, 2020 Assessment & Plan (1) Acute GI bleeding: This is an 81-year-old female with PMH of severe stenosis, chronic diastolic heart failure, asthma, h/o bladder cancer status post resection and ileal conduit, CAD, CKD IV, history of C. difficile, hypothyroidism, hype rlipidemia and other medical problems listed below who presents from [facility] with abnormal lab work. -Hgb of 7.3 (baseline ~9.5), generalized weakness for the past 2 weeks requiring wheelchair for ambulation. Did not notice melena or hematochezia at [facility]. + FOBT in ED -Consented, type and cross, transfusing 1 unit PRBCs with repeat H&H tonight at 2200 -PPI bolus and drip. Routine GI consult placed, NPO -PT/OT, fall precautions in setting of generalized weakness -Iron studies in AM (2) Chronic diastolic (congestive) heart failure: (3) Severe aortic stenosis: In setting of valvular disease. CXR with cardiomegaly, left pleural effusion noted in outpatient clinic, thought to be 2/2 heart failure -Will give IV Lasix 40 x1 after unit of prbcs this evening -Severe aortic stenosis. Has declined invasive procedures in past -Plan to continue daily Lasix (4) CKD (chronic kidney disease), stage IV: Kidney function at baseline with Cr 1.87. Monitor with daily BMP (5) CAD (coronary artery disease): Hx CAD - 40% stenosis LAD. Medically managed. Continue statin (6) Paroxysmal atrial fibrillation: Continue amiodarone. Not on anticoagulation per conversation with cardiology in the past due to age and multiple comorbidities (7) Bladder cancer: Status post resection and ileal conduit (8) Asthma: Continue Flovent, duonebs PRN, singulair (9) GERD (gastroesophageal reflux disease): Holding oral PPI while receiving PPI bolus and drip (10) Depression: Continue SSRI (11) Hypothyroidism: Continue levothyroxine DVT Ppx: SCDs for now Code status: DNR PCP: Bipin @ [facility] Dispo: Admitted to PCU. Discharge planning ordered. Patient seen in collaboration with Dr. Tobin. Please see addendum. Of note: multiple discrepancies between [facility] and [facility] medication lists. Planning to call [facility] tomorrow AM during business hours to confirm. History of Present Illness Chief Complaint: Anemia, concern for GI bleed Primary Care Provider: [facility] This is an 81-year-old female with PMH of severe stenosis, chronic diastolic heart failure, asthma, h/o bladder cancer status post resection and ileal conduit, CAD, CKD IV, history of C. difficile, hypothyroidism, hyperlipidemia and other medical problems listed below who presents from [facility] with abnormal labwork. Patient has been fatigued for the past 2 weeks and is felt generally weak, to the point of requiring a wheelchair to get to dining room when she normally ambulates. Denies noticing any blood in bowel movement. Per discussion with staff, patient thought she noticed blood in urine a few weeks ago and sometimes has blood at urostomy site but that has not been noticed lately. Denies any history of GI bleed. Is not taking any blood thinners or NSAIDs recently. Currently feeling well aside from generalized weakness. Denies any fever, chills, lightheadedness, visual changes, chest pain, palpitations, shortness of breath, presyncope, nausea, vomiting, abdominal pain, dysuria, diarrhea or constipation. Allergies Allergy/AdvReac Type Severity Reaction Status Date / Time Sulfa (Sulfonamide Allergy Intermediate "SULFA Verified 03/01/20 14:01 Antibiotics) DRUGS": RASH, NAUSEA lorazepam Allergy Mild DELIRIUM Verified 03/01/20 14:01 Cipro Allergy Unknown allergy Verified 10/09/16 13:38 ciprofloxacin Allergy Unknown allergy Verified 03/01/20 14:01 scopolamine AdvReac Mild DIZZINESS Verified 03/01/20 14:01 Home Medications Home Medications Medication Instructions Recorded Confirmed Type PreserVision Lutein 1 tab PO BID 02/26/18 03/01/20 History acetaminophen [Tylenol] 650 mg PO Q6 PRN MDD 3 GRAMS/24 02/26/18 03/01/20 History HOURS docusate sodium 100 mg PO QAM 02/26/18 03/01/20 History fluoxetine 20 mg PO QAM 02/26/18 03/01/20 History magnesium oxide 400 mg PO BID 02/26/18 03/01/20 History multivitamin [Daily Vitamin 1 tab PO QAM 02/26/18 03/01/20 History Formula] omeprazole 20 mg PO BID 02/26/18 03/01/20 History ondansetron HCl [Zofran] 4 mg PO Q4 PRN 02/26/18 03/01/20 History simvastatin 10 mg PO PM 02/26/18 03/01/20 History Flovent HFA 2 puff INHALATION BID 03/17/19 03/01/20 History albuterol sulfate [Ventolin HFA] 2 puff INHALATION Q4 PRN 03/17/19 03/01/20 History carbamide peroxide [Ear Drops Otc] 5 - 10 drp OTIC (EAR) UD PRN 03/17/19 03/01/20 History furosemide 20 mg PO 3XWK 03/17/19 03/01/20 History levothyroxine 175 mcg PO QAM 03/17/19 03/01/20 History amiodarone 200 mg PO QAM 06/29/19 03/01/20 History menthol-zinc oxide [Calmoseptine] 1 applic TOPICAL DAILY PRN 06/29/19 03/01/20 History loratadine 10 mg PO QAM 03/01/20 03/01/20 History montelukast 10 mg PO HS 03/01/20 03/01/20 History Past Med/Surg History Medical History (Updated 03/01/20 @ 18:08 by Esha Roblero PA-C) Acute GI bleeding Asthma Bladder cancer Breast CA CAD in [place] artery Chronic anemia CKD (chronic kidney disease) stage 4, GFR 15-29 ml/min CKD (chronic kidney disease), stage IV Depression GERD (gastroesophageal reflux disease) HLD (hyperlipidemia) Hypothyroidism Paroxysmal atrial fibrillation Thrombocytopenia Surgical History H/O cystoscopy H/O foot surgery H/O mastectomy right side H/O: hysterectomy History of appendectomy History of carpal tunnel surgery History of esophagogastroduodenoscopy (EGD) History of left heart catheterization (LHC) History of urostomy Family History Other Asthma Breast cancer Stroke Social History Smoking Status: Former smoker Hx Alcohol Use: No Hx Substance Use: No Preferred Language: Macedonian Communication Ability: Effective Visual Impairment: Limited Vocational Education Professional Required: No Beliefs That Will Affect Care: None Current Living Situation: Other Current Living Situation Comment: [facility] Other Information That Helps Us Care for You: No Feels Safe at Home: Yes Safety Concerns: Feels Safe At This Time Assistive Devices: Denture - Upper, Glasses, Walker and Wheelchair Review of Systems Review of Systems: At least ten systems reviewed and negative except as noted in the HPI. Physical Exam Physical Exam: General Appearance: WD/WN, vitals as above, NAD, sitting up in bed, pleasant, conversing easily, pale Head: normocephalic, atraumatic Eyes: normal inspection, PERRL, conjunctivae normal, anicteric sclerae ENT: external ear and nose normal, oropharynx normal Neck: normal visual inspection, trachea midline, no thyromegaly Respiratory: normal respiratory effort, bibasilar rales L>R, scattered expiratory wheezes. No rhonchi. No accessory muscle use Cardiovascular: regular rate, rhythm, systolic ejection murmur, normal peripheral pulses, no BLE edema. Vessels: no JVD Chest: normal inspection of chest Abdomen/GI: normal bowel sounds, soft, nontender, no hepatosplenomegaly : + Urostomy Extremities/Musculoskeletal: no cyanosis or clubbing, extremities motor strength 5/5 Neurologic: PERRL, EOMI, accommodation nl, no face palsy, no dysarthria, CN's II-XI intact bilaterally and moves all extremities Psychiatric: A+Ox3, euthymic affect Skin: no rashes, normal color, warm/dry Results & Data Results & Data ([facility]) Vital Signs (Past 12 Hours) Vital Signs Temp Pulse Resp BP Pulse Ox 03/01/20 17:00 85 19 149/75 H 95 03/01/20 16:30 84 18 151/76 H 95 03/01/20 16:00 84 19 147/68 H 95 03/01/20 15:30 81 19 157/64 H 93 03/01/20 15:00 82 21 144/75 H 03/01/20 14:30 81 18 143/59 H 90 03/01/20 14:00 82 22 155/60 H 95 03/01/20 13:30 80 22 144/60 H 96 03/01/20 13:15 83 19 147/63 H 97 03/01/20 13:00 80 21 97 03/01/20 12:30 83 21 127/61 98 03/01/20 12:00 81 20 144/53 H 95 03/01/20 11:43 81 20 96 03/01/20 11:40 36.7 C 85 20 134/64 97 03/01/20 11:35 82 20 134/64 96 Laboratory Results Short CBC 03/01/20 Range/Units 12:58 WBC 7.01 (4.8-10.8) K/uL Hgb 7.3 L (12.0-16.0) g/dL Hct 22.9 L (37-47) % Plt Count 255 (130-400) K/uL BMP 03/01/20 12:58 Sodium 137 Potassium 4.3 Chloride 103 Carbon Dioxide 29 BUN 26 H Creatinine 1.87 H Glucose 84 Calcium 9.5 Cardiac Enzymes 03/01/20 Range/Units 12:58 Troponin I < 0.015 (0-0.045) ng/ml Liver Function 03/01/20 Range/Units 12:58 Total Bilirubin 0.3 (0.2-1) mg/dl AST 28 (15-37) U/L ALT 27 (12-78) U/L Alkaline Phosphatase 91 (45-117) U/L Albumin 2.9 L (3.4-5.0) gm/dl Diagnostic Findings CXR: IMPRESSION: 1. Cardiomegaly without radiographic evidence of congestive failure. 2. There is a moderate left pleural effusion with associated left basilar consolidation. This is new from prior studies. Code Status & VTE Plan VTE Prophylaxis Plan VTE Prophylaxis will be ordered: Yes Supervising Physician Co-Signing Physician Notes Attending Addendum: care coordinated with SUNITA Roblero please refer to her notes for full details, I agree with her notes patient seen and examined, records reviewed by myself as well on exam, patient seen resting bed, comfortable, not in distress no active chest pain, dyspnea, palpitations, dizziness, abdominal pain no other symptoms VS noted and reviewed oriented x 2 , not in distress, speaks in sentences with no effort nor accessory muscle use normal rate, regular rhythm, (+) holosystolic murmur clear breath sounds bilaterally non distended, soft, nontender Urostomy draining clear urine, no signs of bleeding, infection no bipedal edema, erythema, warmth no neuro deficits WBC 7.01 Hg 7.3 Crea 255 FOBT (+) ASSESSMENT AND PLAN ANEMIA, POSSIBLE UPPER GI BLEED 1 unit pRBC ordered monitor Hg, anemia panel in AM NPO, Protonix drip, GI consulted SEVERE AORTIC STENOSIS CHF, DIASTOLIC TYPE CAD euvolemic Lasix given with pRBC transfusion HISTORY OF BLADDER CANCER status post resection and ileal conduit urostomy unremarkable other diagnoses and plan of care as per SUNITA Roblero's notes Arron Tobin MD
--- NOTE | 2020-03-01 17:43 | XRay Report ---
SINGLE VIEW CHEST CLINICAL HISTORY: Productive cough. FINDINGS: An AP, portable, upright chest radiograph is compared to study dated 03/17/2019. Correlation is made with abdominal CT dated 02/26/2018. The examination is degraded by portable technique and ap ical lordotic positioning. The heart is enlarged noting atherosclerotic calcification of the thoracic aorta. The pulmonary vasculature is noncongested. There is a moderate left pleural effusion with ass ociated left basilar consolidation. The right lung appears clear. The skeletal structures are osteope liat. The bony thorax appears intact. Surgical clips are noted in the right axilla. IMPRESSION: 1. Cardiomegaly without radiographic evidence of congestive failure. 2. There is a moderate left pleural effusion with associated left basilar consolidation. This is new from prior studies. Electronically signed by: Richard Hills M.D. 03/01/2020 5:42 PM
[2020-03-01] MEDS ORDERED: FUROSEMIDE 40 MG in SYRINGE 0 ML IV ONE (17:46)
[2020-03-01] MEDS ORDERED: SODIUM CHLORIDE 0.9% 250 ML IV PRN (17:46)
[2020-03-01] MEDS ORDERED: FUROSEMIDE 40 MG/4 ML VIAL IV STA (18:28)
[2020-03-01] MEDS: PANTOprazole 40 MG in DEXTROSE 5% 100 ML IV SCH ×2 (18:32→21:43)
[2020-03-01] MEDS ORDERED: MENTHOL-ZINC OXIDE 360 APPLN/120 GM TUBE EXT PRN (20:27)
[2020-03-01] MEDS ORDERED: ONDANSETRON INJ 2 MG/ML 2 ML VIAL IV PRN (20:27)
[2020-03-01] MEDS ORDERED: ALBUTEROL HFA 8 GM INHALER INH PRN (20:27)
[2020-03-01] MEDS ORDERED: ACETAMINOPHEN 325 MG TAB PO PRN (20:27)
[2020-03-01] MEDS ORDERED: CARBAMIDE PEROXIDE 6.5% 15 ML BTL OT PRN (20:27)
[2020-03-01] MEDS: FLUTICASONE FUROATE 200MCG 14 PUFFS/INHALER INH SCH (21:25)
[2020-03-01] MEDS: SIMVASTATIN 10 MG TAB PO SCH (21:26)
[2020-03-01] MEDS: MONTELUKAST SOD 5 MG CHEWABLE TAB PO SCH (22:03)
[2020-03-02] MEDS ORDERED: FUROSEMIDE 40 MG/4 ML VIAL IV SCH (01:00)
[2020-03-02] MEDS: PANTOprazole 40 MG in DEXTROSE 5% 100 ML IV SCH ×2 (02:10→07:42)
[2020-03-02 04:44] LABS: Hematocrit (blood only) 30.3 % (37-47); Hemoglobin 9.6 g/dL (12.0-16.0); Mean Corpuscular Hemoglobin 26.3 pg (25-34); Mean Corpuscular Hgb Conc 31.7 g/dL (32-36); Mean Platelet Volume 11.4 fL (7.4-10.4); Platelet Count 272 K/uL (130-400); RDW Coefficient of Variation 16.6 % (11.5-14.5); RDW Standard Deviation 51.2 fL (36.4-46.3); Red Blood Count 3.65 M/uL (4.2-5.4); White Blood Count 8.83 K/uL (4.8-10.8)
[2020-03-02 05:07] LABS: BUN Creatinine Ratio 12.1 (10-20); Calcium 8.8 mg/dl (8.5-10.1); Est GFR (African American) 28.4; Est GFR (Non-African American) 24.5; Potassium 3.7 mmol/L (3.5-5.1)
[2020-03-02 05:14] LABS: Ferritin 33.5 ng/ml (8-388)
[2020-03-02] MEDS: LEVOTHYROXINE SODIUM 175 MCG TABLET PO SCH (06:46)
[2020-03-02] MEDS: AMIODARONE 200 MG TAB PO SCH (07:42)
[2020-03-02] MEDS: CEROVITE ADV FORMULA TAB PO SCH (07:43)
[2020-03-02] MEDS: FLUoxetine HCL 20 MG CAP PO SCH (07:43)
--- NOTE | 2020-03-02 10:02 | Gastrointestinal Consultation ---
Date of Consultation March 02, 2020 Assessment & Plan (1) Occult blood positive stool: 1. EGD today. 2. Please keep Pt NPO. 3. Dependent on results of EGD, will consider OP colonoscopy. Present on Admission?: Yes (2) Normocytic anemia: Consider w/o for anemia from non GI sources. Present on Admission?: Yes Supervising Physician Co-Signing Physician Notes I saw and evaluated the patient. We are consulted for evaluation of anemia. The patient reports having no abdominal discomfort nausea vomiting. Does not report having any hematochezia nor dark sticky stool. She was given a transfusion yesterday evening with an appropriate response. History is notable for severe aortic stenosis and congestive heart failure. Physical examination Elderly appearing female in no obvious distress Loud holosystolic murmur heard consistent with her history of aortic stenosis Impression: Patient with worsening anemia in the setting of severe heart disease and renal insufficiency. We can certainly look for evidence of an upper gastrointestinal source with upper endoscopy. If the endoscopy is negative the patient be decide if she wants further evaluation with colonoscopy. Could certainly be done at a later date she likely has occult losses or perhaps problems with red blood cell production due to her renal insufficiency and heart disease Upper endoscopy today Consider obtaining a haptoglobin and LDH to screen for hemolysis EGD is negative would recommend a stool Hemoccult History of Present Illness Reason for Consultation: symptomatic anemia, + FOBT Requesting Physician: Esha Roblero PA-C Attending Physician: Isaac Garza MD History of Present Illness Ms. Radha Larson is an 89 yr old female pt who lives at [facility] and carries a hx of CAD, CHF, CKD, severe . She was transferred to [facility] ED yesterday when labs showed Hb of 7, down from 11 a yr ago. She received one unit of RBCs and Hb is now 9.6. Apparently, the OP labs were ordered because she reported feeling weak and tired for a about 2 weeks. She denies any gross GI bleeding, is passing one brown, formed BM/day, denies abdominal pain, nausea or vomiting. Her labs show a normocytic anemia in the setting of stage 4 CKD, though the pt mentions that she has received iron transfusions. She denies any CP or SOB. Her most recent EGD and colonoscopy were both > 10 yrs ago, with findings of a small hiatal hernia and two 2mm polyps. Allergies Allergy/AdvReac Type Severity Reaction Status Date / Time Sulfa (Sulfonamide Allergy Intermediate "SULFA Verified 03/02/20 10:59 Antibiotics) DRUGS": RASH, NAUSEA lorazepam Allergy Mild DELIRIUM Verified 03/02/20 10:59 Cipro Allergy Unknown allergy Verified 10/09/16 13:38 ciprofloxacin Allergy Unknown allergy Verified 03/02/20 10:59 scopolamine AdvReac Mild DIZZINESS Verified 03/02/20 10:59 Home Medications Home Medications Medication Instructions Recorded Confirmed Type PreserVision Lutein 1 tab PO BID 02/26/18 03/01/20 History acetaminophen [Tylenol] 650 mg PO Q6 PRN MDD 3 GRAMS/24 02/26/18 03/01/20 History HOURS docusate sodium 100 mg PO QAM 02/26/18 03/01/20 History fluoxetine 20 mg PO QAM 02/26/18 03/01/20 History magnesium oxide 400 mg PO BID 02/26/18 03/01/20 History multivitamin [Daily Vitamin 1 tab PO QAM 02/26/18 03/01/20 History Formula] omeprazole 20 mg PO BID 02/26/18 03/01/20 History ondansetron HCl [Zofran] 4 mg PO Q4 PRN 02/26/18 03/01/20 History simvastatin 10 mg PO PM 02/26/18 03/01/20 History Flovent HFA 2 puff INHALATION BID 03/17/19 03/01/20 History albuterol sulfate [Ventolin HFA] 2 puff INHALATION Q4 PRN 03/17/19 03/01/20 History carbamide peroxide [Ear Drops Otc] 5 - 10 drp OTIC (EAR) UD PRN 03/17/19 03/01/20 History furosemide 20 mg PO 3XWK 03/17/19 03/01/20 History levothyroxine 175 mcg PO QAM 03/17/19 03/01/20 History amiodarone 200 mg PO QAM 06/29/19 03/01/20 History menthol-zinc oxide [Calmoseptine] 1 applic TOPICAL DAILY PRN 06/29/19 03/01/20 History loratadine 10 mg PO QAM 03/01/20 03/01/20 History montelukast 10 mg PO HS 03/01/20 03/01/20 History Patient History Medical History (Updated 03/02/20 @ 11:02 by Renate Sifuentes DO) Acute GI bleeding Aortic stenosis Asthma Bladder cancer Breast CA CAD in [place] artery Chronic anemia Chronic diastolic (congestive) heart failure CKD (chronic kidney disease) stage 4, GFR 15-29 ml/min CKD (chronic kidney disease), stage IV Depression GERD (gastroesophageal reflux disease) HLD (hyperlipidemia) Hypertension Hypothyroidism Paroxysmal atrial fibrillation Thrombocytopenia Surgical History H/O cystoscopy H/O foot surgery H/O mastectomy right side H/O: hysterectomy History of appendectomy History of carpal tunnel surgery History of esophagogastroduodenoscopy (EGD) History of left heart catheterization (LHC) History of urostomy Family History Other Asthma Breast cancer Stroke Social History Smoking Status: Former smoker Hx Alcohol Use: No Hx Substance Use: No Preferred Language: Uzbek Communication Ability: Effective Visual Impairment: Limited Coal Cutter Required: No Beliefs That Will Affect Care: None Current Living Situation: Other Current Living Situation Comment: [facility] Other Information That Helps Us Care for You: No Feels Safe at Home: Yes Safety Concerns: Feels Safe At This Time Assistive Devices: Denture - Upper, Glasses, Walker and Wheelchair Review of Systems Review of Systems: ROS: Gen: + general weakness; No fevers, no weight loss Eyes: No eye redness, or pain, no recent vision changes Resp: No SOB, no cough Cardio: No palpitations/irregular beats, no chest pain GI: No abdominal pain, no nausea/vomiting : Denies pain on urination Skin: No jaundice, itching or new rashes Physical Exam Constitutional: WD/WN, vitals as above + thin Eyes: PERRL, conjunctivae normal, anicteric sclerae ENMT: external ear and nose normal, oropharynx normal Neck: trachea midline, no thyromegaly Respiratory: normal respiratory effort, lungs clear to auscultation Cardiovascular: Rate/Rhythm: regular rate and regular rhythm 3/6 systolic murmur consistent with Gastrointestinal (Abdomen): normal bowel sounds, soft, nontender, no hepatosplenomegaly Musculoskeletal: no cyanosis or clubbing, extremities motor strength 5/5 Skin: no rashes, warm and dry Neurologic: PERRL, EOMI, accommodation nl, no face palsy, no dysarthria Psychiatric: A+Ox3, euthymic affect Lymphatic: no cervical or axillary lymphadenopathy Results & Data ([facility]) Vital Signs (Past 12 Hours) Vital Signs Temp Pulse Pulse Resp BP BP Pulse Ox 03/02/20 07:45 36.8 C 86 18 137/90 93 03/02/20 03:45 36.6 C 87 20 150/55 H 93 03/02/20 01:34 36.8 C 85 17 145/65 H 92 03/02/20 00:20 36.9 C 86 18 141/54 H 03/01/20 23:20 36.6 C 87 24 142/57 H 94 03/01/20 22:29 36.6 C 86 18 147/76 H 93 03/01/20 22:10 36.6 C 83 18 147/76 H 95 03/01/20 22:00 36.6 C 85 85 H 148/55 H 94 03/01/20 21:53 36.6 C 85 18 140/64 94 Laboratory Results WBC 8.8, Hb 9.6, Hct 30, Platelets 292, Na 136, K 3.7, BUN 22, Cr 1.81, Glucose 97.
[2020-03-02] MEDS ORDERED: PROPOFOL IV EMULSION 10 MG/ML 20 ML VIAL IV ONE (10:59)
[2020-03-02] MEDS ORDERED: ONDANSETRON INJ 2 MG/ML 2 ML VIAL ONE (10:59)
[2020-03-02] MEDS ORDERED: LIDOCAINE HCL 2% 2 ML VIAL/AMP(20MG/ML) INFIL ONE (10:59)
[2020-03-02] MEDS ORDERED: ETOMIDATE 2 MG/ML 20 ML VIAL IV ONE (11:03)
--- NOTE | 2020-03-02 11:04 | Anesthesiology Consultation ---
Date of Service March 02, 2020 Assessment & Plan Chart Review Chart Review: Acceptable Risk for Surgery Consults Requested none ASA ASA4 Proposed Anesthesia Anesthesia Type: MAC Risk / Benefits Reviewed With: PT / POA / Parent / Guardian, Accepts Plan and Informed Consent Obtained Additional Comments: pt understands risks including possible secondary to cardiac event. consent signed echo 03/2019 review, hospitalist/cards notes reviewed. History Surgery Operation Date: 03/02/20 17:30 Proposed Procedures p Esophagogastroduodenoscopy Dr Raulito Cabezas, Height/Weight Height: 5 ft Weight: 57.3 kg Allergies Allergy/AdvReac Type Severity Reaction Status Date / Time Sulfa (Sulfonamide Allergy Intermediate "SULFA Verified 03/02/20 10:59 Antibiotics) DRUGS": RASH, NAUSEA lorazepam Allergy Mild DELIRIUM Verified 03/02/20 10:59 Cipro Allergy Unknown allergy Verified 10/09/16 13:38 ciprofloxacin Allergy Unknown allergy Verified 03/02/20 10:59 scopolamine AdvReac Mild DIZZINESS Verified 03/02/20 10:59 Medications Home Medications Medication Instructions Recorded Confirmed Last Taken PreserVision Lutein 1 tab PO BID 02/26/18 03/01/20 03/01/20 acetaminophen [Tylenol] 650 mg PO Q6 PRN MDD 3 GRAMS/24 02/26/18 03/01/20 Unknown HOURS docusate sodium 100 mg PO QAM 02/26/18 03/01/20 03/01/20 fluoxetine 20 mg PO QAM 02/26/18 03/01/20 03/01/20 magnesium oxide 400 mg PO BID 02/26/18 03/01/20 03/01/20 multivitamin [Daily Vitamin 1 tab PO QAM 02/26/18 03/01/20 03/01/20 Formula] omeprazole 20 mg PO BID 02/26/18 03/01/20 03/01/20 ondansetron HCl [Zofran] 4 mg PO Q4 PRN 02/26/18 03/01/20 Unknown simvastatin 10 mg PO PM 02/26/18 03/01/20 02/29/20 Flovent HFA 2 puff INHALATION BID 03/17/19 03/01/20 03/01/20 albuterol sulfate [Ventolin HFA] 2 puff INHALATION Q4 PRN 03/17/19 03/01/20 Unknown carbamide peroxide [Ear Drops Otc] 5 - 10 drp OTIC (EAR) UD PRN 03/17/19 03/01/20 Unknown furosemide 20 mg PO 3XWK 03/17/19 03/01/20 03/01/20 levothyroxine 175 mcg PO QAM 03/17/19 03/01/20 03/01/20 amiodarone 200 mg PO QAM 06/29/19 03/01/20 03/01/20 menthol-zinc oxide [Calmoseptine] 1 applic TOPICAL DAILY PRN 06/29/19 03/01/20 Unknown loratadine 10 mg PO QAM 03/01/20 03/01/20 03/01/20 montelukast 10 mg PO HS 03/01/20 03/01/20 02/29/20 Active Medications Generic Name Dose Route Start Last Admin Trade Name Freq PRN Reason Stop Dose Admin Amiodarone HCl 200 mg 03/02/20 09:00 03/02/20 07:42 Amiodarone 200 Mg Tab PO 04/01/20 08:59 200 mg QAM ADAM Administration Fluoxetine HCl 20 mg 03/02/20 09:00 03/02/20 07:43 Fluoxetine Hcl 20 Mg Cap PO 04/01/20 08:59 20 mg QAM ADAM Administration Fluticasone Furoate 1 puffs 03/01/20 21:00 03/01/20 21:25 Fluticasone Furoate 200mcg 14 Puffs/Inhaler INH 03/31/20 20:59 1 puffs HS ADAM Administration Pantoprazole Sodium 40 mg/ 100 mls @ 20 mls/hr 03/01/20 17:30 03/02/20 07:42 Dextrose IV 03/31/20 17:29 8 mg/hr Q5H ADAM 20 mls/hr Administration 8 MG/HR Levothyroxine Sodium 175 mcg 03/02/20 06:30 03/02/20 06:46 Levothyroxine Sodium 175 Mcg Tablet PO 04/01/20 06:29 175 mcg DAILYBB ADAM Administration Montelukast Sodium 10 mg 03/01/20 21:00 03/01/20 22:03 Montelukast Sod 5 Mg Chewable Tab PO 03/31/20 20:59 10 mg HS ADAM Administration Multivitamins/Minerals 1 tab 03/02/20 09:00 03/02/20 07:43 Cerovite Adv Formula Tab PO 04/01/20 08:59 1 tab DAILY ADAM Administration Simvastatin 10 mg 03/01/20 21:00 03/01/20 21:26 Simvastatin 10 Mg Tab PO 03/31/20 20:59 10 mg PM ADAM Administration NPO Date Last Intake of Fluids: 03/01/20 Time Last Intake of Fluids: 18:00 Date Last Intake of Solids: 02/29/20 Time Last Intake of Solids: 18:00 Past Medical History Medical History (Updated 03/02/20 @ 11:02 by Renate Sifuentes DO) Acute GI bleeding Aortic stenosis Asthma Bladder cancer Breast CA CAD in [place] artery Chronic anemia Chronic diastolic (congestive) heart failure CKD (chronic kidney disease) stage 4, GFR 15-29 ml/min CKD (chronic kidney disease), stage IV Depression GERD (gastroesophageal reflux disease) HLD (hyperlipidemia) Hypertension Hypothyroidism Paroxysmal atrial fibrillation Thrombocytopenia severe Exercise / Class Metabolic Activity III < 4 Walking/Shop/Light housework Past Family History Family History Other Asthma Breast cancer Stroke Past Surgical History Surgical History H/O cystoscopy H/O foot surgery H/O mastectomy right side H/O: hysterectomy History of appendectomy History of carpal tunnel surgery History of esophagogastroduodenoscopy (EGD) History of left heart catheterization (LHC) History of urostomy Past Anesthesia History No Hx of Anesthesia Complications and No Family Hx of Anesthesia Complications History of PONV No Hx of PONV and No Hx of Motion Sickness Social History Smoking Status: Former smoker Hx Alcohol Use: No Alcohol type: wine alcohol intake frequency: holidays/special occasions only Hx Substance Use: No substance use type: does not use Physical Exam Vital Signs Last Vital Signs Temp 36.8 C 03/02/20 10:48 Pulse 84 03/02/20 10:48 Resp 16 03/02/20 10:48 BP 144/57 H 03/02/20 10:48 Pulse Ox 96 03/02/20 10:48 ENMT Mouth: + dentition abnormality (Dental implants on bottom, few missing) and + dentures (Upper); no TMJ abnormality Thyromental Distance: > or= 3.5 Finger Breadths Mallampati Class: II Neck normal visual inspection and trachea midline; neck extension not limited Respiratory normal respiratory effort Auscultation: lungs clear to auscultation bilaterally Cardiovascular Rate/Rhythm: regular rate and regular rhythm Heart Sounds: + murmur (4/6 WHIT 2nd ICS) Musculoskeletal Spine: normal cervical ROM Extremities: full ROM of extremities Neurologic moves all extremities Psychiatric Orientation: alert and oriented x 3 Testing Laboratory Results 03/02/20 04:28 03/02/20 04:28 PT 11.4 Seconds (9.0-12.0) 03/01/20 12:58 INR 1.1 (0.9-1.1) 03/01/20 12:58 APTT 26.7 Seconds (21.0-31.0) 03/01/20 12:58 Blood Type A Positive 03/01/20 12:58 Antibody Screen NEGATIVE 03/01/20 12:58
--- NOTE | 2020-03-02 11:28 | GI REPORT ---
Patient Name: Radha Larson Procedure Date: 03/02/2020 10:57 AM Date of : 1930 Admit Type: Inpatient Age: 89 Gender: Female Attending MD: Gris Cabezas DO Procedure: Upper GI endoscopy Providers: Gris Cabezas DO Referring MD: KETURAH FOURNIER Indications: Iron deficiency anemia secondary to chronic blood loss Medicines: Monitored Anesthesia Care Complications: No immediate complications. Estimated blood loss: Minimal. Estimated Blood Loss: Estimated blood loss was minimal. Procedure: Pre-Anesthesia Assessment: - Prior to the procedure, a History and Physical was performed, and patient medications, allergies and sensitivities were reviewed. The patient's tolerance of previous anesthesia was reviewed. - The risks and benefits of the procedure and the sedation options and risks were discussed with the patient. All questions were answered and informed consent was obtained. - Patient identification and proposed procedure were verified prior to the procedure by the physician, the nurse and the stitching machine operator. The procedure was verified in the procedure room. - Pre-procedure physical examination revealed no contraindications to sedation. - ASA Grade Assessment: IV - A patient with severe systemic disease that is a constant threat to life. - After reviewing the risks and benefits, the patient was deemed in satisfactory condition to undergo the procedure. - The anesthesia plan was to use monitored anesthesia care (MAC). - Immediately prior to administration of medications, the patient was re-assessed for adequacy to receive sedatives. - The heart rate, respiratory rate, oxygen saturations, blood pressure, adequacy of pulmonary ventilation, and response to care were monitored throughout the procedure. - The physical status of the patient was re-assessed after the procedure. After obtaining informed consent, the endoscope was passed under direct vision. Throughout the procedure, the patient's blood pressure, pulse, and oxygen saturations were monitored continuously. The Endoscope was introduced through the mouth, and advanced to the fourth part of duodenum. The upper GI endoscopy was accomplished without difficulty. The patient tolerated the procedure well. Findings: The examined esophagus was normal. A small hiatal hernia was found. The proximal extent of the gastric folds (end of tubular esophagus) was 36 cm from the incisors. The hiatal narrowing was 38 cm from the incisors. The Z-line was 36 cm from the incisors. Diffuse mild inflammation characterized by congestion (edema), erythema and granularity was found in the entire examined stomach. Biopsies were taken with a cold forceps for histology. The pathology specimen was placed into Bottle A. Estimated blood loss was minimal. The duodenal bulb was normal. Multiple 5 mm angiodysplastic lesions with bleeding on contact were found in the second portion of the duodenum, in the third portion of the duodenum and in the fourth portion of the duodenum. Coagulation for destruction of remaining portion of lesion using argon plasma at 0.8 liters/minute and 20 barclay was successful. Estimated blood loss was minimal. Impression: - Normal esophagus. - Small hiatal hernia. - Gastritis. Biopsied. - Normal duodenal bulb. 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 Treated with argon plasma coagulation (APC). Recommendation: - Return patient to hospital day for ongoing care. - Advance diet as tolerated today. - Use Prilosec (omeprazole) 20 mg PO daily indefinitely. - Use sucralfate tablets 1 gram PO BID for 4 weeks. - Recommend an iron supplement indefinitely. - Would recommend monitoring of anemia by primary care doctor 1 time monthly for the next 4 months. - Colonoscopy could be considered if anemia persists, we could also consider wireless capsule endoscopy Gris Cabezas D.O. Gris Cabezas, 03/02/2020 11:28:06 AM This report has been signed electronically. Note Initiated On: 03/02/2020 10:57 AM Number of Addenda: 0 I attest to the content of the Intraoperative Record and orders documented therein, exceptions below {[id number]}
--- NOTE | 2020-03-02 11:29 | Communication Note ---
Date of Service: March 02, 2020 The patient underwent upper endoscopy today. We found mild gastritis, a very small hiatal hernia and several arteriovenous malformations in the small i ntestine. The AVMs were treated with argon plasma coagulation. This could certainly be the cause of the patient's anemia. Recommendations Result 20 mg/day indefinitely Carafate twice daily for 4 to 6 weeks Consider use of a daily iron supplement Recommend primary care provider check the patient's blood count every 4 to 6 weeks We could consider further evaluation with colonoscopy and wireless capsule endoscopy should the patient's anemia persists Please call with any questions or concerns GI to sign off
--- NOTE | 2020-03-02 11:35 | Anesthesiology Progress Note ---
Date of Service March 02, 2020 Anesthesia Post Procedure Vital Signs Vital Signs: Temp Pulse Pulse Resp BP BP Pulse Ox 03/02/20 10:48 36.8 C 84 16 144/57 H 96 03/02/20 07:45 36.8 C 86 18 137/90 93 03/02/20 03:45 36.6 C 87 20 150/55 H 93 03/02/20 01:34 36.8 C 85 17 145/65 H 92 03/02/20 00:20 36.9 C 86 18 141/54 H 03/01/20 23:20 36.6 C 87 24 142/57 H 94 03/01/20 22:29 36.6 C 86 18 147/76 H 93 03/01/20 22:10 36.6 C 83 18 147/76 H 95 03/01/20 22:00 36.6 C 85 85 H 148/55 H 94 03/01/20 21:53 36.6 C 85 18 140/64 94 03/01/20 21:48 36.6 C 85 18 144/59 H 96 03/01/20 21:43 36.6 C 85 18 144/57 H 94 03/01/20 21:38 36.6 C 86 18 165/59 H 94 03/01/20 20:31 36.6 C 92 H 18 165/59 H 93 03/01/20 20:20 36.6 C 85 18 165/59 H 94 03/01/20 19:36 85 21 171/63 H 03/01/20 19:30 87 19 171/63 H 03/01/20 19:00 86 20 151/54 H 96 03/01/20 18:30 83 20 161/58 H 96 03/01/20 18:00 84 21 153/62 H 94 03/01/20 17:30 84 18 155/78 H 100 03/01/20 17:00 85 19 149/75 H 95 03/01/20 16:30 84 18 151/76 H 95 03/01/20 16:00 84 19 147/68 H 95 03/01/20 15:30 81 19 157/64 H 93 03/01/20 15:00 82 21 144/75 H 03/01/20 14:30 81 18 143/59 H 90 03/01/20 14:00 82 22 155/60 H 95 03/01/20 13:30 80 22 144/60 H 96 03/01/20 13:15 83 19 147/63 H 97 03/01/20 13:00 80 21 97 03/01/20 12:30 83 21 127/61 98 03/01/20 12:00 81 20 144/53 H 95 03/01/20 11:43 81 20 96 03/01/20 11:40 36.7 C 85 20 134/64 97 Pulse Ox 03/02/20 10:48 03/02/20 07:45 03/02/20 03:45 03/02/20 01:34 03/02/20 00:20 03/01/20 23:20 03/01/20 22:29 03/01/20 22:10 03/01/20 22:00 03/01/20 21:53 03/01/20 21:48 03/01/20 21:43 03/01/20 21:38 03/01/20 20:31 93 03/01/20 20:20 03/01/20 19:36 03/01/20 19:30 03/01/20 19:00 03/01/20 18:30 03/01/20 18:00 03/01/20 17:30 03/01/20 17:00 03/01/20 16:30 03/01/20 16:00 03/01/20 15:30 03/01/20 15:00 03/01/20 14:30 03/01/20 14:00 03/01/20 13:30 03/01/20 13:15 03/01/20 13:00 03/01/20 12:30 03/01/20 12:00 03/01/20 11:43 03/01/20 11:40 Transfer of Care Handoff Completed per policy Notes Mental Status: alert / awake / arousable Patient Amnestic to Procedure: Yes Nausea / Vomiting: adequately controlled Pain: adequately controlled Airway Patency, RR, SpO2: stable & adequate BP & HR: stable & adequate Hydration State: stable & adequate Anesthetic Complications: no major complications apparent and Pt Satisfied with anesthetic care
--- NOTE | 2020-03-02 16:33 | Hospitalist Progress Note ---
Date of Service March 02, 2020 Assessment & Plan (1) Acute GI bleeding: Positive FOBT on admission was sent from [facility] with abnormal lab work. Pt said that she has been feeling very tired and weak for the last 2 weeks Hgb of 7.3 on admission (baseline ~9.5) S/P 1 unit PRBC last night Hgb today 9.6 gastro on board S/P EGD perfomed by Dr. Cabezas that revealed mild gastritis, a very small hiatal hernia and several arteriovenous malformations in the small intestine. The AVMs were treated with argon plasma coagulation. This could certainly be the cause of the patient's anemia. GI recommended PPI 20 mg/day indefinitel and Carafate twice daily for 4 to 6 weeks Consider use of a daily iron supplement Continue monitor CBC every 4 to 6 weeks outpatient If anemia persists, consider further evaluation with colonoscopy and wireless capsule endoscopy Continue iron supplement Monitor CBC in am Diet advanced as tolerated (2) Chronic diastolic (congestive) heart failure: (3) Severe aortic stenosis: In setting of valvular disease. CXR with cardiomegaly, left pleural effusion noted in outpatient clinic, thought to be 2/2 heart failure Received IV lasix last night after blood transfusion Continue lasix Po Clinically stable (4) CKD (chronic kidney disease), stage IV: Kidney function at baseline with Cr 1.8 stable (5) CAD (coronary artery disease): Hx CAD - 40% stenosis LAD. Medically managed. asymptomatic Continue statin (6) Paroxysmal atrial fibrillation: Continue amiodarone. 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 Discharge planning ordered. Plan to discharge in am if hgb stable Admission and Anticipated Discharge Date Admission Date: March 01, 2020 Subjective Pt was seen and examined Sitting in chair with no distress with daughter at bedside Pt said that she feels a little better She said her energy is much better Denies any chest pain, palpitation, dizziness and SOB Physical Exam Physical Exam: General- No acute distress Head- atraumatic Eyes- PERRL, EOMI, ENT- oropharynx clear Neck- supple, no JVD Lungs- clear to auscultation Heart- regular rhythm; +systolic murmur Abdomen- normal bowel sounds, soft, nontender - +Urostomy Extremities- no calf tenderness Neuro- alert, oriented x 3; PERRL, EOMI; no facial palsy; no dysarthria Skin- warm & dry Results & Data Results & Data ([facility]) Vital Signs (Past 12 Hours) Vital Signs Temp Pulse Pulse Pulse Resp BP BP 03/02/20 15:40 36.6 C 78 18 140/49 L 03/02/20 14:45 80 23 100/46 L 03/02/20 14:30 82 23 103/37 L 03/02/20 14:15 79 19 113/43 L 03/02/20 14:00 82 14 127/60 03/02/20 13:46 88 20 146/61 H 03/02/20 13:45 90 20 03/02/20 13:30 78 21 97/45 L 03/02/20 13:15 77 21 124/58 L 03/02/20 13:00 78 22 118/55 L 03/02/20 12:45 77 15 125/59 L 03/02/20 12:37 80 20 139/49 L 03/02/20 12:36 81 15 124/69 03/02/20 12:32 03/02/20 12:02 77 16 154/55 H 03/02/20 11:47 82 16 128/67 03/02/20 11:32 81 16 132/82 03/02/20 10:48 36.8 C 84 16 144/57 H 03/02/20 10:15 106 H 19 03/02/20 10:00 83 19 03/02/20 07:45 36.8 C 86 18 137/90 Pulse Ox 03/02/20 15:40 96 03/02/20 14:45 03/02/20 14:30 03/02/20 14:15 03/02/20 14:00 03/02/20 13:46 03/02/20 13:45 03/02/20 13:30 93 03/02/20 13:15 92 03/02/20 13:00 94 03/02/20 12:45 95 03/02/20 12:37 96 03/02/20 12:36 96 03/02/20 12:32 94 03/02/20 12:02 97 03/02/20 11:47 99 03/02/20 11:32 100 03/02/20 10:48 96 03/02/20 10:15 03/02/20 10:00 03/02/20 07:45 93
[2020-03-02] MEDS: SIMVASTATIN 10 MG TAB PO SCH (20:18)
[2020-03-02] MEDS: FLUTICASONE FUROATE 200MCG 14 PUFFS/INHALER INH SCH (20:18)
[2020-03-02] MEDS: SUCRALFATE 1 GM/10 ML UDC PO SCH (20:18)
[2020-03-02] MEDS: MONTELUKAST SOD 5 MG CHEWABLE TAB PO SCH (20:18)
[2020-03-03 04:57] LABS: Hematocrit (blood only) 28.5 % (37-47); Mean Corpuscular Hemoglobin 26.3 pg (25-34); Mean Corpuscular Hgb Conc 31.6 g/dL (32-36); Mean Corpuscular Volume 83.3 fL (80-100); Mean Platelet Volume 11.6 fL (7.4-10.4); Platelet Count 247 K/uL (130-400); RDW Coefficient of Variation 16.8 % (11.5-14.5); RDW Standard Deviation 51.4 fL (36.4-46.3); Red Blood Count 3.42 M/uL (4.2-5.4); White Blood Count 9.76 K/uL (4.8-10.8)
[2020-03-03] MEDS: LEVOTHYROXINE SODIUM 175 MCG TABLET PO SCH (06:05)
[2020-03-03] MEDS: AMIODARONE 200 MG TAB PO SCH (07:48)
[2020-03-03] MEDS: SUCRALFATE 1 GM/10 ML UDC PO SCH (07:48)
[2020-03-03] MEDS: FLUoxetine HCL 20 MG CAP PO SCH (07:49)
[2020-03-03] MEDS: CEROVITE ADV FORMULA TAB PO SCH (07:49)
[2020-03-03] MEDS ORDERED: FUROSEMIDE 20 MG TAB PO SCH (09:00)
[2020-03-03] MEDS ORDERED: PANTOprazole 40 MG TAB PO SCH (09:00)
--- NOTE | 2020-03-03 12:28 | Hospitalist Progress Note ---
Date of Service March 03, 2020 Assessment & Plan (1) Acute GI bleeding: Positive FOBT on admission was sent from [facility] with abnormal lab work. Pt said that she has been feeling very tired and weak for the last 2 weeks Hgb of 7.3 on admission (baseline ~9.5) S/P 1 unit PRBC last night Hgb today 9 gastro on board S/P EGD perfomed by Dr. Cabezas that revealed mild gastritis, a very small hiatal hernia and several arteriovenous malformations in the small intestine. The AVMs were treated with argon plasma coagulation. This could certainly be the cause of the patient's anemia. GI recommended PPI 20 mg/day indefinitel and Carafate twice daily for 4 to 6 weeks Consider use of a daily iron supplement Continue monitor CBC every 4 to 6 weeks outpatient If anemia persists, consider further evaluation with colonoscopy and wireless capsule endoscopy Continue iron supplement Diet advanced as tolerated Check CBC in 1 week to monitor hemoglobin (2) Chronic diastolic (congestive) heart failure: (3) Severe aortic stenosis: In setting of valvular disease. CXR with cardiomegaly, left pleural effusion noted in outpatient clinic, thought to be 2/2 heart failure Received IV lasix after blood transfusion Continue lasix Po Clinically stable (4) CKD (chronic kidney disease), stage IV: Kidney function at baseline with Cr 1.8 stable (5) CAD (coronary artery disease): Hx CAD - 40% stenosis LAD. Medically managed. asymptomatic Continue statin (6) Paroxysmal atrial fibrillation: Continue amiodarone. 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 Dispo: Admitted to PCU. Discharge planning ordered. Will discharge home today Admission and Anticipated Discharge Date Admission Date: March 01, 2020 Subjective Pt was seen and examined Sitting in the recliner with no distress eating Pt said that she feels much better She said that she tolerated her diet She said that her strength is getting better Denies any chest pain, palpitation, dizziness and SOB Physical Exam Physical Exam: General- No acute distress Head- atraumatic Eyes- PERRL, EOMI, ENT- oropharynx clear Neck- supple, no JVD Lungs- clear to auscultation Heart- regular rhythm; +systolic murmur Abdomen- normal bowel sounds, soft, nontender - +Urostomy Extremities- no calf tenderness Neuro- alert, oriented x 3; PERRL, EOMI; no facial palsy; no dysarthria Skin- warm & dry Results & Data Results & [facility] ([facility]) Vital Signs (Past 12 Hours) Vital Signs Temp Pulse Pulse Resp BP BP Pulse Ox 03/03/20 10:00 77 17 03/03/20 08:00 78 16 03/03/20 07:47 36.8 C 82 14 139/56 L 03/03/20 07:00 74 22 03/03/20 03:27 36.8 C 79 18 126/47 L 95
--- NOTE | 2020-03-06 09:06 | Discharge Summary ---
Date of Service March 03, 2020 Admission HPI Per Admitting Provider This is an 81-year-old female with PMH of severe stenosis, chronic diastolic heart failure, asthma, h/o bladder cancer status post resection and ileal conduit, CAD, CKD IV, history of C. difficile, hypothyroidism, hyperlipidemia and other medical problems listed below who presents from [facility] with abnormal labwork. Patient has been fatigued for the past 2 weeks and is felt generally weak, to the point of requiring a wheelchair to get to dining room when she normally ambulates. Denies noticing any blood in bowel movement. Per discussion with staff, patient thought she noticed blood in urine a few weeks ago and sometimes has blood at urostomy site but that has not been noticed lately. Denies any history of GI bleed. Is not taking any blood thinners or NSAIDs recently. Currently feeling well aside from generalized weakness. Denies any fever, chills, lightheadedness, visual changes, chest pain, palpitations, shortness of breath, presyncope, nausea, vomiting, abdominal pain, dysuria, diarrhea or constipation. Admission Exam Per Admitting Provider General Appearance: WD/WN, vitals as above, NAD, sitting up in bed, pleasant, conversing easily, pale Head: normocephalic, atraumatic Eyes: normal inspection, PERRL, conjunctivae normal, anicteric sclerae ENT: external ear and nose normal, oropharynx normal Neck: normal visual inspection, trachea midline, no thyromegaly Respiratory: normal respiratory effort, bibasilar rales L>R, scattered expiratory wheezes. No rhonchi. No accessory muscle use Cardiovascular: regular rate, rhythm, systolic ejection murmur, normal peripheral pulses, no BLE edema. Vessels: no JVD Chest: normal inspection of chest Abdomen/GI: normal bowel sounds, soft, nontender, no hepatosplenomegaly : + Urostomy Extremities/Musculoskeletal: no cyanosis or clubbing, extremities motor strength 5/5 Neurologic: PERRL, EOMI, accommodation nl, no face palsy, no dysarthria, CN's II-XI intact bilaterally and moves all extremities Psychiatric: A+Ox3, euthymic affect Skin: no rashes, normal color, warm/dry Principal Diagnosis Acute GI bleeding: Chronic diastolic (congestive) heart failure: Severe aortic stenosis: CKD (chronic kidney disease), stage IV: CAD (coronary artery disease): Paroxysmal atrial fibrillation: Bladder cancer: Discharge Exam General- No acute distress Head- atraumatic Eyes- PERRL, EOMI, ENT- oropharynx clear Neck- supple, no JVD Lungs- clear to auscultation Heart- regular rhythm; +systolic murmur Abdomen- normal bowel sounds, soft, nontender - +Urostomy Extremities- no calf tenderness Neuro- alert, oriented x 3; PERRL, EOMI; no facial palsy; no dysarthria Skin- warm & dry Discharge Data Allergies Allergy/AdvReac Type Severity Reaction Status Date / Time Sulfa (Sulfonamide Allergy Intermediate "SULFA Verified 03/02/20 10:59 Antibiotics) DRUGS": RASH, NAUSEA lorazepam Allergy Mild DELIRIUM Verified 03/02/20 10:59 Cipro Allergy Unknown allergy Verified 10/09/16 13:38 ciprofloxacin Allergy Unknown allergy Verified 03/02/20 10:59 scopolamine AdvReac Mild DIZZINESS Verified 03/02/20 10:59 Consultations 03/01/20 14:39 ED Decision to Admit Stat 03/01/20 20:27 Consult Case Management - Discharge Planning Routine Consult Gastroenterology Routine Procedures Performed Operation Date: 03/02/20 17:30 Actual Procedures p EGD Hemostasis(Not Applicable) - Gris Cabezas DO s EGD Biopsy Cytology - Gris Cabezas DO SINGLE VIEW CHEST CLINICAL HISTORY: Productive cough. FINDINGS: An AP, portable, upright chest radiograph is compared to study dated 03/17/2019. Correlation is made with abdominal CT dated 02/26/2018. The examination is degraded by portable technique and apical lordotic positioning. The heart is enlarged noting atherosclerotic calcification of the thoracic aorta. The pulmonary vasculature is noncongested. There is a moderate left pleural effusion with associated left basilar consolidation. The right lung appears clear. The skeletal structures are osteopenic. The bony thorax appears intact. Surgical clips are noted in the right axilla. IMPRESSION: 1. Cardiomegaly without radiographic evidence of congestive failure. 2. There is a moderate left pleural effusion with associated left basilar consolidation. This is new from prior studies. Electronically signed by: Richard Hills M.D. 03/01/2020 5:42 PM Dictated: 03/01/201739 Transcribed: 03/01/201739 Hospital Course (1) Acute GI bleeding: Positive FOBT on admission was sent from [facility] with abnormal lab work. Pt said that she has been feeling very tired and weak for the last 2 weeks Hgb of 7.3 on admission (baseline ~9.5) S/P 1 unit PRBC last night Hgb today 9 gastro on board S/P EGD perfomed by Dr. Cabezas that revealed mild gastritis, a very small hiatal hernia and several arteriovenous malformations in the small intestine. The AVMs were treated with argon plasma coagulation. This could certainly be the cause of the patient's anemia. GI recommended PPI 20 mg/day indefinitel and Carafate twice daily for 4 to 6 weeks Consider use of a daily iron supplement Continue monitor CBC every 4 to 6 weeks outpatient If anemia persists, consider further evaluation with colonoscopy and wireless capsule endoscopy Continue iron supplement Diet advanced as tolerated Check CBC in 1 week to monitor hemoglobin (2) Chronic diastolic (congestive) heart failure: (3) Severe aortic stenosis: In setting of valvular disease. CXR with cardiomegaly, left pleural effusion noted in outpatient clinic, thought to be 2/2 heart failure Received IV lasix after blood transfusion Continue lasix Po Clinically stable (4) CKD (chronic kidney disease), stage IV: Kidney function at baseline with Cr 1.8 stable (5) CAD (coronary artery disease): Hx CAD - 40% stenosis LAD. Medically managed. asymptomatic Continue statin (6) Paroxysmal atrial fibrillation: Continue amiodarone. 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 Discharge planning ordered. Will discharge home today Total Time Total Time Spent Total Time Spent (In Minutes): 35 minutes Total Time Includes: Examination of the Patient, Discharge Planning, Medication Reconciliation, Communication With Other Providers and Other Discharge Plan Discharge Items Patient Disposition: Personal Alf Reason For Visit: GI BLEED Discharge Diagnosis: Acute GI bleeding: Chronic diastolic (congestive) heart failure: Severe aortic stenosis: CKD (chronic kidney disease), stage IV: CAD (coronary artery disease): Paroxysmal atrial fibrillation: Bladder cancer: Activity: Resume your previous activity Non-emergency contact: Primary Care Provider Call non-emergency contact if: you have any medication questions [facility] Care [facility] - Diet: Heart Healthy Addtl Attending Provider Instructions: Follow up with your primary care provider at [facility] Follow up with gastroenterology if hemoglobin continues to drop to arrange for a colonoscopy Continue physical therapy Check CBC within 1 week to monitor your hemoglobin Avoid any NSAID for now (such as Motrin, Aleve, naproxen, Ibuprofen, Motrin, aspirin ) Advanced diet as tolerated Fall precaution Pending Studies at Discharge: No Stand-Alone Forms: [employer], Smoking Cessation Skilled Items Patient informed of condition?: Yes DNR: Yes Discharge Level of Care: Other Communicable Disease: No Discharge Prognosis: Stable Lines: None Urinary Catheter: No Medications and DC Order Prescriptions: New sucralfate 100 mg/mL Suspension 1 g PO BID Qty: 420 RF: 0 ferrous sulfate 325 mg (65 mg iron) tablet 325 mg PO DAILY Qty: 30 RF: 0 Continued multivitamin [Daily Vitamin Formula] Tablet 1 tab PO QAM RF: 0 acetaminophen [Tylenol] 325 mg Tablet 650 mg PO Q6 MDD 3 GRAMS/24 HOURS PRN (Reason: Fever Or Pain) RF: 0 ondansetron HCl [Zofran] 4 mg Tablet 4 mg PO Q4 PRN (Reason: NAUSEA/VOMITING) RF: 0 simvastatin 10 mg Tablet 10 mg PO PM RF: 0 docusate sodium 100 mg Capsule 100 mg PO QAM RF: 0 omeprazole 20 mg Capsule,Delayed Release(Dr/Ec) 20 mg PO BID RF: 0 fluoxetine 20 mg Capsule 20 mg PO QAM RF: 0 PreserVision Lutein 226 mg-200 unit -5 mg-0.8 mg Capsule 1 tab PO BID RF: 0 magnesium oxide 400 mg magnesium Tablet 400 mg PO BID RF: 0 levothyroxine 175 mcg tablet 175 mcg PO QAM RF: 0 carbamide peroxide [Ear Drops Otc] 6.5 % Drops 5 - 10 drp OTIC (EAR) UD PRN (Reason: prn) RF: 0 albuterol sulfate [Ventolin HFA] 90 mcg/actuation HFA aerosol inhaler 2 puff inhalation Q4 PRN (Reason: Shortness Of Breath Or Wheezing) RF: 0 Flovent HFA 110 mcg/actuation HFA aerosol inhaler 2 puff inhalation BID RF: 0 furosemide 20 mg Tablet 20 mg PO [id number] RF: 0 amiodarone 200 mg Tablet 200 mg PO QAM RF: 0 Calmoseptine 0.44-20.6 % Ointment 1 applic TOPICAL DAILY PRN (Reason: rash) RF: 0 montelukast 5 mg tablet,chewable 10 mg PO HS RF: 0 loratadine 10 mg Tablet 10 mg PO QAM RF: 0 Discharge Orders: Discharge Order (Routine); Ordered 03/03/20 Ordered By: Isaac Garza Admission Data Admit Date/Time: 03/01/20 16:12 Attending Provider: Isaac Garza Admit Provider: Arron Tobin Primary Care Provider: PAUL HAMLIN Other Providers: Arron Tobin ; Gris Cabezas Other Interventions: Discharge Summary Assessment (RN) Last Done: 03/03/20 14:33
== END 2020-03-03 16:00 | disposition home or self-care (01) | DRG 378 ==
LOC: ED 11:26 → 1E 16:12 → SUATTDRO 16:12 → 1E 20:06